=== PATIENT | female | born 1960 | race Caucasian/White ===

== ENCOUNTER → 2018-06-24 12:01 | Outpatient (CLI) | payer MEDICARE, MEDICAID, SELFPAY ==
--- NOTE | 2018-06-24 12:07 | XR_ITS ---
XR shoulder RT min 2V HISTORY: ITS.REASON: Rt shoulder pain ORDERING PHYSICIAN: Lolis Tavarez MD PATIENT AGE: 57 years FINDINGS: No fracture or dislocation. No lytic or blastic change. There is normal mineralization. The joint spaces are well-preserved. No significant degenerative/arthritic changes. No erosive changes evident. There is mild inferior subluxation of the humeral head on the [place] view. Mild hypertrophic changes involving greater tuberosity IMPRESSION: There is mild inferior subluxation of the humeral head on the [place] view. Mild hypertrophic changes involving greater tuberosity otherwise negative right shoulder
== END ==
PROVIDERS: PCP Emergency Medicine; Visit Provider Orthopaedic Surgery
DX: M25.511 Pain in right shoulder (principal)
CPT/HCPCS: 73030

== ENCOUNTER 2018-07-12 10:00 | Outpatient (RCR) | payer MEDICARE, MEDICAID, SELFPAY | END 2018-07-12 10:05 | disposition home or self-care (01) | LOC: OT 10:00 | PROVIDERS: Visit Provider Orthopaedic Surgery | DX: M25.511 Pain in right shoulder (principal) | CPT/HCPCS: 97014; 97110; 97165; G0283 ==

== ENCOUNTER → 2018-10-14 12:17 | Outpatient (CLI) | payer MEDICARE, MEDICAID, SELFPAY ==
[2018-10-14 13:42] LABS: Anion Gap 14.4 mEq/L (5-15); Blood Urea Nitrogen 21 mg/dL (7-18); Calcium 8.4 mg/dL (8.5-10.1); Carbon Dioxide 29 mmol/L (21.0-32.0); Chloride 101 mmol/L (98-107); Creatinine,Serum 1.12 mg/dL (0.55-1.02); Estimated Glomerular Filt Rate 51 ml/min (>60); GFR (African American) 61 ML/MIN (>60); Glucose 155 mg/dL (74-106); Potassium 4.4 mmoL/L (3.5-5.1); Sodium 140 mmol/L (136-145)
== END ==
PROVIDERS: Visit Provider Internal Medicine Cardiovascular Disease
DX: I10 Essential (primary) hypertension (principal); R00.0 Tachycardia, unspecified; R06.02 Shortness of breath
CPT/HCPCS: 36415; 80048; 83880

== ENCOUNTER 2018-11-11 14:35 | Emergency (ER) | payer MEDICARE, MEDICAID, SELFPAY ==
[2018-11-11 14:35] VITALS: BP 129/83; PULSE 109; O2SAT 95
[2018-11-11 14:38] VITALS: BP 150/101; PULSE 101; RESP 22; TEMP 36.7; O2SAT 96; BMI 37.4
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
[2018-11-11 15:05] VITALS: BP 151/89; PULSE 119; O2SAT 95
[2018-11-11 15:20] VITALS: BP 147/75; PULSE 81; RESP 18; TEMP 36.7; O2SAT 99
== END 2018-11-11 15:26 | disposition home or self-care (01) ==
PROVIDERS: Emergency Provider Emergency Medicine; PCP Emergency Medicine
DX: T20.20XA Burn of second degree of head, face, and neck, unspecified site, initial encounter (principal); X08.8XXA Exposure to other specified smoke, fire and flames, initial encounter; Y92.199 Unspecified place in other specified residential institution as the place of occurrence of the external cause; J44.9 Chronic obstructive pulmonary disease, unspecified; K21.9 Gastro-esophageal reflux disease without esophagitis; E78.5 Hyperlipidemia, unspecified; F41.9 Anxiety disorder, unspecified; F17.210 Nicotine dependence, cigarettes, uncomplicated; Z88.0 Allergy status to penicillin; Z88.5 Allergy status to narcotic agent; Z88.8 Allergy status to other drugs, medicaments and biological substances
CPT/HCPCS: 90471; 99282

== ENCOUNTER 2019-02-08 22:06 | Observation (INO) ==
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
[2019-02-08 23:13] LABS: Basophils # 0.1 K/mm3 (0-0.2); Basophils % 0.5 % (0.1-2.0); Eosinophils # 0.2 K/mm3 (0.0-0.4); Eosinophils % 1.3 % (0.1-12.0); Hematocrit 40.2 % (37.0-47.0); Hemoglobin 12.4 g/dL (12.2-16.2); Lymphocytes # 2.1 K/mm3 (0.7-4.5); Lymphocytes % 12.3 % (10-50); Mean Corpuscular HGB Conc 30.9 g/dL (31.8-35.4); Mean Corpuscular Volume 92.7 fl (81-99); Mean Platelet Volume 10.6 fl (7.4-10.4); Monocytes # 1.2 K/mm3 (0.1-1.0); Monocytes % 6.8 % (1.7-9.3); Neutrophils # 13.3 K/mm3 (1.8-7.8); Neutrophils % 79.2 % (37.0-80.0); Platelet Count 211 K/mm3 (142-424); Red Blood Count 4.33 M/mm3 (4.20-5.40); Red Cell Distribution Width 14.2 % (11.5-17.5); White Blood Count 16.8 K/mm3 (4.8-10.8)
[2019-02-08 23:34] LABS: Anion Gap 17.4 mEq/L (5-15); Calcium 8.9 mg/dL (8.5-10.1)
[2019-02-08 23:35] LABS: Albumin Level 3.5 gm/dL (3.4-5.0); Bilirubin,Direct 0.2 mg/dL (0.0-0.2); Bilirubin,Indirect 0.4 mg/dL (0.0-0.9); Bilirubin,Total 0.6 mg/dL (0.2-1.0); Total Protein,Serum 7.3 gm/dL (6.4-8.2)
[2019-02-08 23:59] LABS: Anisocytosis 1+; Eosinophils % 1 % (0-3); Lymphocytes % 10 % (10-50); Monocytes % 2 % (2-9); Neutrophils % 87 % (42-76); Total Cells Counted 100
[2019-02-09 05:06] LABS: Microscopic, Urine URINE MICROSCOPIC (MICROSCOPIC)
[2019-02-09 05:10] LABS: Appearance,Urine CLEAR (Clear); Bilirubin,Urine Negative (Negative); Blood, Urine 2+ (Negative); Color,Urine YELLOW (Yellow); Glucose,Urine (UA) 3+ (Negative); Ketones,Urine Negative (Negative); Leukocyte Esterase,Urine Negative (Negative); Protein,Urine Negative (Negative); Urobilinogen,Urine 0.2 EU/dl (0.2)
[2019-02-09 05:38] LABS: Bacteria,Urine 1+ /lpf; Mucus,Urine 1+ /lpf
[2019-02-09 05:42] LABS: Basophils # 0.1 K/mm3 (0-0.2); Basophils % 0.5 % (0.1-2.0); Eosinophils # 0.4 K/mm3 (0.0-0.4); Eosinophils % 2.5 % (0.1-12.0); Hematocrit 38.2 % (37.0-47.0); Lymphocytes # 2.5 K/mm3 (0.7-4.5); Lymphocytes % 18.2 % (10-50); Mean Corpuscular HGB Conc 31.4 g/dL (31.8-35.4); Mean Corpuscular Volume 89.1 fl (81-99); Mean Platelet Volume 10.3 fl (7.4-10.4); Monocytes % 7.6 % (1.7-9.3); Neutrophils # 9.7 K/mm3 (1.8-7.8); Neutrophils % 71.2 % (37.0-80.0); Platelet Count 196 K/mm3 (142-424); Red Blood Count 4.29 M/mm3 (4.20-5.40); Red Cell Distribution Width 14.3 % (11.5-17.5); White Blood Count 13.6 K/mm3 (4.8-10.8)
[2019-02-09 05:59] LABS: Anion Gap 15.4 mEq/L (5-15); Calcium 8.7 mg/dL (8.5-10.1)
--- NOTE | 2019-02-09 08:56 | History & Physical Report ---
*Admission Date: 02/08/19 *Chief complaint: abcess *History of present illness: 58-year-old female presented to the ER with complaints of 2 abscess areas on the right inner thigh. Patient states he just showed up yesterday. Patient admitted for abscesses for surgery consult and newly diagnosed diabetes. [facility] History I have reviewed the patient's past medical history: Yes Medical History: Reports:: Anxiety, Chronic Obstructive Pulmonary Disease (COPD), Diabetes Mellitus Type 2, Gastroesophageal Reflux Disease(GERD), Hyperlipidemia, Hypertension, Seizures Denies:: Cancer, Diabetes Mellitus Type 1, MRSA *Have you ever received a pneumonia vaccine?: Yes *Have you received a flu vaccine this season?: No Other Medical History: Reports: Anemia Other Surgeries: Yes: Cholecystectomy, Tubal Ligation Amputation: No - *Social History Educational Level: Attended High School Smoking Status: Current every day smoker Tobacco Type: cigarettes # Packs/Day (cigarettes): 1 Alcohol Intake: never Substance Use Type: denies use *Occupational Status:: disabled Housing: other *Travel in the last 8 weeks: None - Psychiatric History Pschychiatric History:: Reports:: Anxiety Family Hx:: Coronary Artery Disease Review of Systems - Review of Systems Review of systems:: pertinent systems reviewed and negative unless documented below - Constitutional Denies body ache(s), Denies headache(s) - Eyes Denies change in vision - ENT Denies change in voice, Denies headache(s) - *Cardiovascular Denies chest pain with activity - *Respiratory Denies cough - *Gastrointestinal Denies change in bowel habits - *Genitourinary Denies urinary urgency - *Musculoskeletal Denies decreased muscle mass - Integumentary/Breasts Reports wounds Comments: two abscess rt inter thigh - *Neurologic Denies seizure-like activity - Psychiatric Denies anxiety - Endocrine Denies excessive sweating - Hematologic/Lymphatic Denies enlarged lymph nodes - Allergic/Immunologic Denies lip swelling Meds Home Medications Medication Instructions Recorded Confirmed Type atorvastatin 80 mg tablet 80 mg PO ONCE 09/08/17 02/09/19 History benztropine 1 mg tablet 1 mg PO BID 09/08/17 02/09/19 History buspirone 30 mg tablet 30 mg PO BID tab 09/08/17 02/09/19 History escitalopram 20 mg tablet 20 mg PO ONCE 09/08/17 02/09/19 History haloperidol 10 mg tablet 10 mg PO TID 09/08/17 02/09/19 History ibuprofen 600 mg tablet 600 mg PO TID 09/08/17 02/09/19 History loperamide 2 mg capsule 2 mg PO Q4H 09/08/17 02/09/19 History olanzapine 20 mg tablet 20 mg PO ONCE 09/08/17 02/09/19 History pantoprazole 20 mg tablet,delayed 40 mg PO QHS 09/08/17 02/09/19 History release perphenazine 8 mg tablet 8 mg PO BID 09/08/17 02/09/19 History phenytoin sodium extended 100 mg 100 mg PO TID 09/08/17 02/09/19 History capsule potassium chloride ER 20 mEq 20 meq PO BID 09/08/17 02/09/19 History tablet,extended release(part/cryst) promethazine 25 mg tablet 25 mg PO Q6H PRN 09/08/17 02/09/19 History triamterene 75 1 tab PO BID tab 09/08/17 02/09/19 History mg-hydrochlorothiazide 50 mg tablet Loratadine [Claritin] 10 mg PO DAILY 02/08/19 02/08/19 History Oxybutynin Chloride [Oxybutynin 5 mg PO DAILY 02/08/19 02/08/19 History Chloride ER] lamoTRIgine [Lamictal Odt] 50 mg PO BID 02/08/19 02/08/19 History levETIRAcetam [Levetiracetam] 500 mg PO BID 02/08/19 02/08/19 History Allergies Allergy/AdvReac Type Severity Reaction Status Date / Time aripiprazole [From ABILIFY] Allergy Mild Verified 11/11/18 14:45 Penicillins [PENICILLINS] Allergy Mild Verified 11/11/18 14:45 codeine [CODEINE] Allergy Unknown Verified 11/11/18 14:45 paroxetine [PAROXETINE] Allergy Unknown Verified 11/11/18 14:45 PPD black rubber mix Allergy Unknown Verified 11/11/18 14:45 [PPD BLACK RUBBER MIX] tuberculin, purified protein Allergy Unknown Verified 11/11/18 14:45 deriva [From TUBERSOL] venom-honey bee Allergy Unknown Verified 11/11/18 14:45 venom-wasp Allergy Unknown Verified 11/11/18 14:45 Bumble Bee Allergy Unknown Uncoded 10/14/18 11:06 Exam Vital signs and Labs for Last 24 Hours: Temp Pulse Resp BP Pulse Ox 97.7 F 76 21 131/78 100 02/09/19 08:00 02/09/19 08:00 02/09/19 08:00 02/09/19 08:00 02/09/19 08:00 Laboratory Results - last 24 hr 02/08/19 22:50: WBC 16.8 H, RBC 4.33, Hgb 12.4, Hct 40.2, MCV 92.7, MCH 28.7, MCHC 30.9 L, RDW 14.2, Plt Count 211, MPV 10.6 H, Neut % (Auto) 79.2, Lymph % (Auto) 12.3, [place] % (Auto) 6.8, Eos % (Auto) 1.3, Baso % (Auto) 0.5, Neut # (Au to) 13.3 H, Lymph # (Auto) 2.1, [place] # (Auto) 1.2 H, Eos # (Auto) 0.2, Baso # (Auto) 0.1, Total Counted 100, Neutrophils % (Manual) 87 H, Lymphocytes % (Manual) 10, Monocytes % (Manual) 2, Eosinophils % (Manual) 1, Platelet Estimate Normal, Anisocytosis 1+ 02/08/19 22:50: Sodium 126 L, Potassium 4.4, Chloride 88 L, Carbon Dioxide 25, Anion Gap 17.4 H, BUN 28 H, Creatinine 1.74 H, Estimated Creat Clear 55, Estimated GFR 30 L, Est GFR ( Amer) 37 L, Glucose 791 H*, Calcium 8.9 02/08/19 22:50: Lactate 3.0 H 02/08/19 22:50: Total Bilirubin 0.6, Direct Bilirubin 0.2, Indirect Bilirubin 0.4, AST 26, ALT 43, Alkaline Phosphatase 169 H, Total Protein 7.3, Albumin 3.5 02/09/19 00:00: Acetone Level None detected 02/09/19 00:00: Phenytoin 0.6 L 02/09/19 02:30: Lactate 2.5 H 02/09/19 04:52: Urine Color Yellow, Urine Appearance Clear, Urine pH 6.0, Ur Specific [place] 1.010, Urine Protein Negative, Urine Glucose (UA) 3+, Urine Ketones Negative, Urine Blood 2+, Urine Nitrate Positive, Urine Bilirubin Negative, Urine Urobilinogen 0.2, Ur Leukocyte Esterase Negative, Urine RBC 5- 10, Urine WBC 3-5, Ur Squamous Epith Cells 3-5, Urine Bacteria 1+, Urine Mucus 1+ 02/09/19 05:25: WBC 13.6 H, RBC 4.29, Hgb 12.0 L, Hct 38.2, MCV 89.1, MCH 28.0, MCHC 31.4 L, RDW 14.3, Plt Count 196, MPV 10.3, Neut % (Auto) 71.2, Lymph % (Auto) 18.2, [place] % (Auto) 7.6, Eos % (Auto) 2.5, Baso % (Auto) 0.5, Neut # (Auto) 9.7 H, Lymph # (Auto) 2.5, [place] # (Auto) 1.0, Eos # (Auto) 0.4, Baso # (Auto) 0.1 02/09/19 05:25: Sodium 134 L, Potassium 3.4 L D, Chloride 95 L, Carbon Dioxide 27, Anion Gap 15.4 H, BUN 23 H, Creatinine 1.36 H D, Estimated Creat Clear 72, Estimated GFR 40 L, Est GFR ( Amer) 49 L D, Glucose 533 H* D, Calcium 8.7 02/09/19 05:25: Lactate 1.5 02/09/19 05:40: POC Glucose 514 H* I & O for Last 24 hours: Intake & Output 02/06/19 02/07/19 02/08/19 02/09/19 11:59 11:59 11:59 11:59 Intake Total 717 / 717 Output Total 1350 / 1350 Balance -633 / -633 Weight 218 lb 1 oz Microbiology Reports for the Last 24 Hours: Microbiology 02/09/19 01:00 Groin Gram Stain - Final - Constitutional no acute distress - *Routine HEENT Exam Head: Present: normocephalic Eye: Present: PERRL ENT: Present: mucous membranes moist - *Routine Neck Exam Present: supple. Absent: lymphadenopathy - *Routine Respiratory Exam Present: CTA bilaterally - *Routine Cardiovascular Exam Present: RRR - *Routine Abdominal Exam Present: soft, normoactive bowel sounds. Absent: tenderness - *Routine Extremities Exam Present: full ROM. Absent: cyanosis, clubbing, edema - *Routine Skin Exam Present: warm, wounds. Absent: rash Comments: two areas one golf ball size induration area with redness- dressing in place one pimple like area - *Routine Neurological Exam Present: alert, oriented X3 - Routine Psychiatric Exam Present: unable to assess Assessment and Plan (1) Abscess of skin or subcutaneous tissue Current visit: Yes Status: Acute Qualifiers: Site of cutaneous abscess: extremity Site of cutaneous abscess of extremity: lower extremity Laterality: right Qualified Code(s): L02.415 - Cutaneous abscess of right lower limb Category: Medical Code(s): L02.91 - Cutaneous abscess, unspecified (2) Diabetes mellitus Current visit: Yes Status: Acute Qualifiers: Diabetes mellitus type: type 2 Diabetes mellitus prison insulin use: unspecified prison insulin use status Diabetes mellitus complication status: with other specified complication Qualified Code(s): E11.69 - Type 2 diabetes mellitus with other specified complication Category: Medical Code(s): E11.9 - Type 2 diabetes mellitus without complications (3) Schizophrenia Current visit: Yes Status: Acute Qualifiers: Schizophrenia type: unspecified Qualified Code(s): F20.9 - Schizophrenia, unspecified Category: Medical Code(s): F20.9 - Schizophrenia, unspecified (4) HTN (hypertension) Current visit: No Status: Acute Qualifiers: Hypertension type: essential hypertension Qualified Code(s): I10 - Essential (primary) hypertension Category: Medical Code(s): I10 - Essential (primary) hypertension - Assessment and plan all Dx Assessment and Plan for all problems:: Rounded with Dr. Douglass all orders per Evonne consult surgery
--- NOTE | 2019-02-09 09:26 | Pharmacy Consult Notes ---
- Pharmacy Consult Date: 02/09/19 Time: 09:25 Referring provider: DR. SNIDER Reason for Consult:: VANCOMYCIN DOSING Allergies and ADEs:: Allergies Allergy/AdvReac Type Severity Reaction Status Date / Time aripiprazole [From ABILIFY] Allergy Mild Verified 11/11/18 14:45 Penicillins [PENICILLINS] Allergy Mild Verified 11/11/18 14:45 codeine [CODEINE] Allergy Unknown Verified 11/11/18 14:45 paroxetine [PAROXETINE] Allergy Unknown Verified 11/11/18 14:45 PPD black rubber mix Allergy Unknown Verified 11/11/18 14:45 [PPD BLACK RUBBER MIX] tuberculin, purified protein Allergy Unknown Verified 11/11/18 14:45 deriva [From TUBERSOL] venom-honey bee Allergy Unknown Verified 11/11/18 14:45 venom-wasp Allergy Unknown Verified 11/11/18 14:45 Bumble Bee Allergy Unknown Uncoded 10/14/18 11:06 Home Medications:: Home Medications Medication Instructions Recorded Confirmed Type atorvastatin 80 mg tablet 80 mg PO ONCE 09/08/17 02/09/19 History benztropine 1 mg tablet 1 mg PO BID 09/08/17 02/09/19 History buspirone 30 mg tablet 30 mg PO BID tab 09/08/17 02/09/19 History escitalopram 20 mg tablet 20 mg PO ONCE 09/08/17 02/09/19 History haloperidol 10 mg tablet 10 mg PO TID 09/08/17 02/09/19 History ibuprofen 600 mg tablet 600 mg PO TID 09/08/17 02/09/19 History loperamide 2 mg capsule 2 mg PO Q4H 09/08/17 02/09/19 History olanzapine 20 mg tablet 20 mg PO ONCE 09/08/17 02/09/19 History pantoprazole 20 mg tablet,delayed 40 mg PO QHS 09/08/17 02/09/19 History release perphenazine 8 mg tablet 8 mg PO BID 09/08/17 02/09/19 History phenytoin sodium extended 100 mg 100 mg PO TID 09/08/17 02/09/19 History capsule potassium chloride ER 20 mEq 20 meq PO BID 09/08/17 02/09/19 History tablet,extended release(part/cryst) promethazine 25 mg tablet 25 mg PO Q6H PRN 09/08/17 02/09/19 History triamterene 75 1 tab PO BID tab 09/08/17 02/09/19 History mg-hydrochlorothiazide 50 mg tablet Loratadine [Claritin] 10 mg PO DAILY 02/08/19 02/08/19 History Oxybutynin Chloride [Oxybutynin 5 mg PO DAILY 02/08/19 02/08/19 History Chloride ER] lamoTRIgine [Lamictal Odt] 50 mg PO BID 02/08/19 02/08/19 History levETIRAcetam [Levetiracetam] 500 mg PO BID 02/08/19 02/08/19 History Height: 1.65 m Weight: 98.911 kg Laboratory Results:: Laboratory Results - last 24 hr 02/08/19 22:50: WBC 16.8 H, RBC 4.33, Hgb 12.4, Hct 40.2, MCV 92.7, MCH 28.7, MCHC 30.9 L, RDW 14.2, Plt Count 211, MPV 10.6 H, Neut % (Auto) 79.2, Lymph % (Auto) 12.3, [place] % (Auto) 6.8, Eos % (Auto) 1.3, Baso % (Auto) 0.5, Neut # (Auto) 13.3 H, Lymph # (Auto) 2.1, [place] # (Auto) 1.2 H, Eos # (Auto) 0.2, Baso # (Auto) 0.1, Total Counted 100, Neutrophils % (Manual) 87 H, Lymphocytes % (Manual) 10, Monocytes % (Manual) 2, Eosinophils % (Manual) 1, Platelet Estimate Normal, Anisocytosis 1+ 02/08/19 22:50: Sodium 126 L, Potassium 4.4, Chloride 88 L, Carbon Dioxide 25, Anion Gap 17.4 H, BUN 28 H, Creatinine 1.74 H, Estimated Creat Clear 55, Estimated GFR 30 L, Est GFR ( Amer) 37 L, Glucose 791 H*, Calcium 8.9 02/08/19 22:50: Lactate 3.0 H 02/08/19 22:50: Total Bilirubin 0.6, Direct Bilirubin 0.2, Indirect Bilirubin 0.4, AST 26, ALT 43, Alkaline Phosphatase 169 H, Total Protein 7.3, Albumin 3.5 02/09/19 00:00: Acetone Level None detected 02/09/19 00:00: Phenytoin 0.6 L 02/09/19 02:30: Lactate 2.5 H 02/09/19 04:52: Urine Color Yellow, Urine Appearance Clear, Urine pH 6.0, Ur Specific [place] 1.010, Urine Protein Negative, Urine Glucose (UA) 3+, Urine Ketones Negative, Urine Blood 2+, Urine Nitrate Positive, Urine Bilirubin Negative, Urine Urobilinogen 0.2, Ur Leukocyte Esterase Negative, Urine RBC 5- 10, Urine WBC 3-5, Ur Squamous Epith Cells 3-5, Urine Bacteria 1+, Urine Mucus 1+ 02/09/19 05:25: WBC 13.6 H, RBC 4.29, Hgb 12.0 L, Hct 38.2, MCV 89.1, MCH 28.0, MCHC 31.4 L, RDW 14.3, Plt Count 196, MPV 10.3, Neut % (Auto) 71.2, Lymph % (Auto) 18.2, [place] % (Auto) 7.6, Eos % (Auto) 2.5, Baso % (Auto) 0.5, Neut # (Auto) 9.7 H, Lymph # (Auto) 2.5, [place] # (Auto) 1.0, Eos # (Auto) 0.4, Baso # (Auto) 0.1 02/09/19 05:25: Sodium 134 L, Potassium 3.4 L D, Chloride 95 L, Carbon Dioxide 27, Anion Gap 15.4 H, BUN 23 H, Creatinine 1.36 H D, Estimated Creat Clear 72, Estimated GFR 40 L, Est GFR ( Amer) 49 L D, Glucose 533 H* D, Calcium 8.7 02/09/19 05:25: Lactate 1.5 02/09/19 05:40: POC Glucose 514 H* Medical History: Reports:: Anxiety, Chronic Obstructive Pulmonary Disease (COPD), Diabetes Mellitus Type 2, Gastroesophageal Reflux Disease(GERD), Hyperlipidemia, Hypertension, Seizures Denies:: Cancer, Diabetes Mellitus Type 1, MRSA Assessment and Plan (1) Abscess of skin or subcutaneous tissue Current visit: Yes Status: Acute Qualifiers: Site of cutaneous abscess: extremity Site of cutaneous abscess of extremity: lower extremity Laterality: right Qualified Code(s): L02.415 - Cutaneous abscess of right lower limb Category: Medical Code(s): L02.91 - Cutaneous abscess, unspecified (2) Diabetes mellitus Current visit: Yes Status: Acute Qualifiers: Diabetes mellitus type: type 2 Diabetes mellitus keno terminal operator insulin use: unspecified chcf insulin use status Diabetes mellitus complication status: with other specified complication Qualified Code(s): E11.69 - Type 2 diabetes mellitus with other specified complication Category: Medical Code(s): E11.9 - Type 2 diabetes mellitus without complications (3) Schizophrenia Current visit: Yes Status: Acute Qualifiers: Schizophrenia type: unspecified Qualified Code(s): F20.9 - Schizophrenia, unspecified Category: Medical Code(s): F20.9 - Schizophrenia, unspecified (4) HTN (hypertension) Current visit: No Status: Acute Qualifiers: Hypertension type: essential hypertension Qualified Code(s): I10 - Essential (primary) hypertension Category: Medical Code(s): I10 - Essential (primary) hypertension - Assessment and plan all Dx Assessment and Plan for all problems:: BASED ON PATIENT FACTORS, RECOMMEND VANCOMYCIN 2 GM IV ONCE, FOLLOWED BY VANCOMYCIN 1750 MG IV Q24H. PHARMACY WILL FOLLOW DAILY AND ADJUST APPROPRIATE.
--- NOTE | 2019-02-09 10:22 | Consult Report ---
*Admission Date: 02/08/19 *Reason for consult:: Right medial thigh abscess *History of present illness: This is a 58-year-old female seen in consultation from the service of Dr. Douglass for evaluation and management of her right medial thigh abscess. She presented with increasing swelling/tenderness along the right medial thigh. An obvious abscess with focal cellulitic change was noted. Focal/limited incision and drainage was completed in the emergency department. She was placed on antibiotics and admitted for further management. Review of Systems - Constitutional Denies chills - *Cardiovascular Denies chest pain - *Respiratory Denies cough - *Gastrointestinal Denies abdominal pain - *Neurologic Denies headache(s), Denies seizure-like activity [facility] History Medical History: Reports:: Anxiety, Chronic Obstructive Pulmonary Disease (COPD), Diabetes Mellitus Type 2, Gastroesophageal Reflux Disease(GERD), Hyperlipidemia, Hypertension, Seizures Denies:: Cancer, Diabetes Mellitus Type 1, MRSA *Have you ever received a pneumonia vaccine?: Yes *Have you received a flu vaccine this season?: No Other Medical History: Reports: Anemia Other Surgeries: Yes: Cholecystectomy, Tubal Ligation Amputation: No - *Social History Educational Level: Attended High School Smoking Status: Current every day smoker Tobacco Type: cigarettes # Packs/Day (cigarettes): 1 Alcohol Intake: never Substance Use Type: denies use *Occupational Status:: disabled Housing: other *Travel in the last 8 weeks: None - Psychiatric History Pschychiatric History:: Reports:: Anxiety Family Hx:: Coronary Artery Disease Meds Home Medications Medication Instructions Recorded Confirmed Type atorvastatin 80 mg tablet 80 mg PO ONCE 09/08/17 02/09/19 History benztropine 1 mg tablet 1 mg PO BID 09/08/17 02/09/19 History buspirone 30 mg tablet 30 mg PO BID tab 09/08/17 02/09/19 History escitalopram 20 mg tablet 20 mg PO ONCE 09/08/17 02/09/19 History haloperidol 10 mg tablet 10 mg PO TID 09/08/17 02/09/19 History ibuprofen 600 mg tablet 600 mg PO TID 09/08/17 02/09/19 History loperamide 2 mg capsule 2 mg PO Q4H 09/08/17 02/09/19 History olanzapine 20 mg tablet 20 mg PO ONCE 09/08/17 02/09/19 History pantoprazole 20 mg tablet,delayed 40 mg PO QHS 09/08/17 02/09/19 History release perphenazine 8 mg tablet 8 mg PO BID 09/08/17 02/09/19 History phenytoin sodium extended 100 mg 100 mg PO TID 09/08/17 02/09/19 History capsule potassium chloride ER 20 mEq 20 meq PO BID 09/08/17 02/09/19 History tablet,extended release(part/cryst) promethazine 25 mg tablet 25 mg PO Q6H PRN 09/08/17 02/09/19 History triamterene 75 1 tab PO BID tab 09/08/17 02/09/19 History mg-hydrochlorothiazide 50 mg tablet Loratadine [Claritin] 10 mg PO DAILY 02/08/19 02/08/19 History Oxybutynin Chloride [Oxybutynin 5 mg PO DAILY 02/08/19 02/08/19 History Chloride ER] lamoTRIgine [Lamictal Odt] 50 mg PO BID 02/08/19 02/08/19 History levETIRAcetam [Levetiracetam] 500 mg PO BID 02/08/19 02/08/19 History Allergies Allergy/AdvReac Type Severity Reaction Status Date / Time aripiprazole [From ABILIFY] Allergy Mild Verified 11/11/18 14:45 Penicillins [PENICILLINS] Allergy Mild Verified 11/11/18 14:45 codeine [CODEINE] Allergy Unknown Verified 11/11/18 14:45 paroxetine [PAROXETINE] Allergy Unknown Verified 11/11/18 14:45 PPD black rubber mix Allergy Unknown Verified 11/11/18 14:45 [PPD BLACK RUBBER MIX] tuberculin, purified protein Allergy Unknown Verified 11/11/18 14:45 deriva [From TUBERSOL] venom-honey bee Allergy Unknown Verified 11/11/18 14:45 venom-wasp Allergy Unknown Verified 11/11/18 14:45 Bumble Bee Allergy Unknown Uncoded 10/14/18 11:06 Exam Vital signs and Labs for Last 24 Hours: Temp Pulse Resp BP Pulse Ox 97.7 F 76 21 131/78 100 02/09/19 08:00 02/09/19 08:00 02/09/19 08:00 02/09/19 08:00 02/09/19 08:00 Laboratory Results - last 24 hr 02/08/19 22:50: WBC 16.8 H, RBC 4.33, Hgb 12.4, Hct 40.2, MCV 92.7, MCH 28.7, MCHC 30.9 L, RDW 14.2, Plt Count 211, MPV 10.6 H, Neut % (Auto) 79.2, Lymph % (Auto) 12.3, [place] % (Auto) 6.8, Eos % (Auto) 1.3, Baso % (Auto) 0.5, Neut # (Auto) 13.3 H, Lymph # (Auto) 2.1, [place] # (Auto) 1.2 H, Eos # (Auto) 0.2, Baso # (Auto) 0.1, Total Counted 100, Neutrophils % (Manual) 87 H, Lymphocytes % (Manual) 10, Monocytes % (Manual) 2, Eosinophils % (Manual) 1, Platelet Estimate Normal, Anisocytosis 1+ 02/08/19 22:50: Sodium 126 L, Potassium 4.4, Chloride 88 L, Carbon Dioxide 25, Anion Gap 17.4 H, BUN 28 H, Creatinine 1.74 H, Estimated Creat Clear 55, Estimated GFR 30 L, Est GFR ( Amer) 37 L, Glucose 791 H*, Calcium 8.9 02/08/19 22:50: Lactate 3.0 H 02/08/19 22:50: Total Bilirubin 0.6, Direct Bilirubin 0.2, Indirect Bilirubin 0.4, AST 26, ALT 43, Alkaline Phosphatase 169 H, Total Protein 7.3, Albumin 3.5 02/09/19 00:00: Acetone Level None detected 02/09/19 00:00: Phenytoin 0.6 L 02/09/19 02:30: Lactate 2.5 H 02/09/19 04:52: Urine Color Yellow, Urine Appearance Clear, Urine pH 6.0, Ur Specific [place] 1.010, Urine Protein Negative, Urine Glucose (UA) 3+, Urine Ketones Negative, Urine Blood 2+, Urine Nitrate Positive, Urine Bilirubin Negative, Urine Urobilinogen 0.2, Ur Leukocyte Esterase Negative, Urine RBC 5- 10, Urine WBC 3-5, Ur Squamous Epith Cells 3-5, Urine Bacteria 1+, Urine Mucus 1+ 02/09/19 05:25: WBC 13.6 H, RBC 4.29, Hgb 12.0 L, Hct 38.2, MCV 89.1, MCH 28.0, MCHC 31.4 L, RDW 14.3, Plt Count 196, MPV 10.3, Neut % (Auto) 71.2, Lymph % (Auto) 18.2, [place] % (Auto) 7.6, Eos % (Auto) 2.5, Baso % (Auto) 0.5, Neut # (Auto) 9.7 H, Lymph # (Auto) 2.5, [place] # (Auto) 1.0, Eos # (Auto) 0.4, Baso # (Auto) 0.1 02/09/19 05:25: Sodium 134 L, Potassium 3.4 L D, Chloride 95 L, Carbon Dioxide 27, Anion Gap 15.4 H, BUN 23 H, Creatinine 1.36 H D, Estimated Creat Clear 72, Estimated GFR 40 L, Est GFR ( Amer) 49 L D, Glucose 533 H* D, Calcium 8.7 02/09/19 05:25: Lactate 1.5 02/09/19 05:40: POC Glucose 514 H* I & O for Last 24 hours: Intake & Output 02/06/19 02/07/19 02/08/19 02/09/19 11:59 11:59 11:59 11:59 Intake Total 717 / 717 Output Total 1350 / 1350 Balance -633 / -633 Weight 218 lb 1 oz Microbiology Reports for the Last 24 Hours: Microbiology 02/09/19 01:00 Groin Gram Stain - Final - Constitutional no acute distress - *Routine Skin Exam Comments: Right medial thigh abscess (x2) with overlying cellulitic change Results - Labs 02/09/19 05:25 02/09/19 05:25 Laboratory Results - last 24 hr 02/08/19 22:50: WBC 16.8 H, RBC 4.33, Hgb 12.4, Hct 40.2, MCV 92.7, MCH 28.7, MCHC 30.9 L, RDW 14.2, Plt Count 211, MPV 10.6 H, Neut % (Auto) 79.2, Lymph % (Auto) 12.3, [place] % (Auto) 6.8, Eos % (Auto) 1.3, Baso % (Auto) 0.5, Neut # (Auto) 13.3 H, Lymph # (Auto) 2.1, [place] # (Auto) 1.2 H, Eos # (Auto) 0.2, Baso # (Auto) 0.1, Total Counted 100, Neutrophils % (Manual) 87 H, Lymphocytes % (Manual) 10, Monocytes % (Manual) 2, Eosinophils % (Manual) 1, Platelet Estimate Normal, Anisocytosis 1+ 02/08/19 22:50: Sodium 126 L, Potassium 4.4, Chloride 88 L, Carbon Dioxide 25, Anion Gap 17.4 H, BUN 28 H, Creatinine 1.74 H, Estimated Creat Clear 55, Estimated GFR 30 L, Est GFR ( Amer) 37 L, Glucose 791 H*, Calcium 8.9 02/08/19 22:50: Lactate 3.0 H 02/08/19 22:50: Total Bilirubin 0.6, Direct Bilirubin 0.2, Indirect Bilirubin 0.4, AST 26, ALT 43, Alkaline Phosphatase 169 H, Total Protein 7.3, Albumin 3.5 02/09/19 00:00: Acetone Level None detected 02/09/19 00:00: Phenytoin 0.6 L 02/09/19 02:30: Lactate 2.5 H 02/09/19 04:52: Urine Color Yellow, Urine Appearance Clear, Urine pH 6.0, Ur Specific [place] 1.010, Urine Protein Negative, Urine Glucose (UA) 3+, Urine Ketones Negative, Urine Blood 2+, Urine Nitrate Positive, Urine Bilirubin Negative, Urine Urobilinogen 0.2, Ur Leukocyte Esterase Negative, Urine RBC 5- 10, Urine WBC 3-5, Ur Squamous Epith Cells 3-5, Urine Bacteria 1+, Urine Mucus 1+ 02/09/19 05:25: WBC 13.6 H, RBC 4.29, Hgb 12.0 L, Hct 38.2, MCV 89.1, MCH 28.0, MCHC 31.4 L, RDW 14.3, Plt Count 196, MPV 10.3, Neut % (Auto) 71.2, Lymph % (Auto) 18.2, [place] % (Auto) 7.6, Eos % (Auto) 2.5, Baso % (Auto) 0.5, Neut # (Auto) 9.7 H, Lymph # (Auto) 2.5, [place] # (Auto) 1.0, Eos # (Auto) 0.4, Baso # (Auto) 0.1 02/09/19 05:25: Sodium 134 L, Potassium 3.4 L D, Chloride 95 L, Carbon Dioxide 27, Anion Gap 15.4 H, BUN 23 H, Creatinine 1.36 H D, Estimated Creat Clear 72, Estimated GFR 40 L, Est GFR ( Amer) 49 L D, Glucose 533 H* D, Calcium 8.7 02/09/19 05:25: Lactate 1.5 02/09/19 05:40: POC Glucose 514 H* Assessment and Plan (1) Abscess of skin or subcutaneous tissue Current visit: Yes Status: Acute Qualifiers: Site of cutaneous abscess: extremity Site of cutaneous abscess of extremity: lower extremity Laterality: right Qualified Code(s): L02.415 - Cutaneous abscess of right lower limb Category: Medical Code(s): L02.91 - Cutaneous abscess, unspecified Incision and drainage of right medial thigh abscesses (x2) to be completed at the bedside (2) Diabetes mellitus Current visit: Yes Status: Acute Qualifiers: Diabetes mellitus type: type 2 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 care home insulin use status Diabetes mellitus complication status: with other specified complication Qualified Code(s): E11.69 - Type 2 diabetes mellitus with other specified complication Category: Medical Code(s): E11.9 - Type 2 diabetes mellitus without complications (3) Schizophrenia Current visit: Yes Status: Acute Qualifiers: Schizophrenia type: unspecified Qualified Code(s): F20.9 - Schizophrenia, unspecified Category: Medical Code(s): F20.9 - Schizophrenia, unspecified (4) HTN (hypertension) Current visit: No Status: Acute Qualifiers: Hypertension type: essential hypertension Qualified Code(s): I10 - Essential (primary) hypertension Category: Medical Code(s): I10 - Essential (primary) hypertension
--- NOTE | 2019-02-09 10:31 | Operative Note ---
Date of procedure: 02/09/19 Pre-op Diagnosis:: Right medial thigh abscesses Post-op Diagnosis:: Same Procedure performed:: Incision and drainage of right medial thigh abscesses Surgeon:: Lm Klein MD Anesthesia: local Estimated blood loss (mL): 5 Operative findings:: Small pockets of purulent fluid noted at both sites Operative note:: After informed consent was obtained the patient was maintained in a supine position in her hospital room. Her right medial thigh was prepped and draped in a sterile fashion. After infiltration local anesthetic an incision was made along the central portion of both right medial thigh abscesses. Fluid was obtained from each site for Gram stain and culture. Blunt dissection into the subcutaneous tissue for improved opening and debridement of the cavity was then completed. Both wounds were packed open with gauze. Dressings were applied. She tolerated the procedure well. Condition: stable Disposition: no change Complications:: No immediate
--- NOTE | 2019-02-09 11:55 | Pharmacy Consult Notes ---
[facility] Pharmacy VTE Monitoring - Patient Demographics Admission date: 02/09/19 Report Date: 02/09/19 Time: 11:54 Allergies/Adverse Reactions: Patient Allergies aripiprazole [From ABILIFY] Allergy (Mild, Verified 11/11/18 14:45) Penicillins [PENICILLINS] Allergy (Mild, Verified 11/11/18 14:45) codeine [CODEINE] Allergy (Unknown, Verified 11/11/18 14:45) paroxetine [PAROXETINE] Allergy (Unknown, Verified 11/11/18 14:45) PPD black rubber mix [PPD BLACK RUBBER MIX] Allergy (Unknown, Verified 11/11/18 14:45) tuberculin, purified protein deriva [From TUBERSOL] Allergy (Unknown, Verified 11/11/18 14:45) venom-honey bee Allergy (Unknown, Verified 11/11/18 14:45) venom-wasp Allergy (Unknown, Verified 11/11/18 14:45) Bumble Bee Allergy (Unknown, Uncoded 10/14/18 11:06) Height: 1.65 m Weight: 98.911 kg Patient Problems: Current Active Problems Abscess of skin or subcutaneous tissue (Acute) Severe sepsis (Acute) Diabetes mellitus (Acute) Obesity (BMI 30-39.9) (Acute) Renal insufficiency (Acute) Schizophrenia (Acute) - VTE Risk Labs: VTE Related Lab Results Hgb 12.0 g/dL (12.2-16.2) L 02/09/19 05:25 Hct 38.2 % (37.0-47.0) 02/09/19 05:25 Plt Count 196 K/mm3 (142-424) 02/09/19 05:25 BUN 23 mg/dL (7-18) H 02/09/19 05:25 Creatinine 1.36 mg/dL (0.55-1.02) H D 02/09/19 05:25 Estimated Creat Clear 72 mL/min (50-200) 02/09/19 05:25 Was VTE Risk Assessment Performed: Yes VTE Score: 4 VTE Risk Level: Low Risk Clinical Trial Participant: No - Prophylaxis VTE Prophylaxis Ordered?: Yes Types of VTE Prophylaxis: TEDS Knee High
--- NOTE | 2019-02-10 06:44 | Progress Note ---
Subjective Patient reports: other (resting) Exam Vital signs and Labs for Last 24 Hours: Temp Pulse Resp BP Pulse Ox 98.0 F 79 18 113/64 97 02/10/19 04:00 02/10/19 04:00 02/10/19 04:00 02/10/19 04:00 02/10/19 04:00 Laboratory Results - last 24 hr 02/09/19 11:27: POC Glucose 406 H* 02/09/19 16:48: POC Glucose 405 H* 02/09/19 21:50: POC Glucose 353 H* I & O for Last 24 hours: Intake & Output 02/07/19 02/08/19 02/09/19 02/10/19 11:59 11:59 11:59 11:59 Intake Total 717 / 717 3300 / 3300 Output Total 1350 / 1350 1700 / 1700 Balance -633 / -633 1600 / 1600 Weight 218 lb 1 oz 220 lb 4 oz Microbiology Reports for the Last 24 Hours: Microbiology 02/09/19 01:00 Groin Gram Stain - Final 02/09/19 01:00 Groin Wound Culture - Preliminary NO GROWTH AFTER 24 HOURS 02/09/19 09:30 Thigh - Right Gram Stain - Final - Constitutional no acute distress - *Routine Respiratory Exam Absent: respiratory distress - *Routine Cardiovascular Exam Present: RRR Progress Note: A&P (1) Abscess of skin or subcutaneous tissue Status: Acute Assessment and plan: begin dressing changes today Current Visit: Yes (2) Diabetes mellitus Status: Acute Current Visit: Yes (3) Schizophrenia Status: Acute Current Visit: Yes (4) HTN (hypertension) Status: Acute Current Visit: No
[2019-02-10 08:39] LABS: Basophils # 0.1 K/mm3 (0-0.2); Basophils % 0.5 % (0.1-2.0); Eosinophils # 0.5 K/mm3 (0.0-0.4); Eosinophils % 3.8 % (0.1-12.0); Hemoglobin 11.7 g/dL (12.2-16.2); Lymphocytes # 1.4 K/mm3 (0.7-4.5); Lymphocytes % 11.3 % (10-50); Mean Corpuscular HGB Conc 31.5 g/dL (31.8-35.4); Mean Corpuscular Volume 89.8 fl (81-99); Monocytes # 0.7 K/mm3 (0.1-1.0); Monocytes % 5.7 % (1.7-9.3); Neutrophils # 9.6 K/mm3 (1.8-7.8); Neutrophils % 78.8 % (37.0-80.0); Platelet Count 144 K/mm3 (142-424); Red Blood Count 4.13 M/mm3 (4.20-5.40); White Blood Count 12.2 K/mm3 (4.8-10.8)
[2019-02-10 08:51] LABS: Albumin Level 2.7 gm/dL (3.4-5.0); Albumin/Globulin Ratio 0.8 (1.1-1.8); Anion Gap 14.2 mEq/L (5-15); Bilirubin,Total 0.4 mg/dL (0.2-1.0); Globulin 3.3 gm/dl (1.3-3.2)
[2019-02-10 09:13] LABS: Calcium 7.9 mg/dL (8.5-10.1)
--- NOTE | 2019-02-10 12:25 | Discharge Summary ---
General - General Admission date:: 02/09/19 Discharge date: 02/10/19 HPI HPI: 58-year-old female presented to the ER with complaints of 2 abscess areas on the right inner thigh. Patient states he just showed up yesterday. Patient admitted for abscesses for surgery consult and newly diagnosed diabetes. Hospital Course Hospital Course: surgery consult- see note I&D- see note wound cx still pending diabetic- add metformin and glipizide and check bmp every month for 3 months will dc back to personal intermediate on antibiotics- keflex tid and bactrium for 10 days while waiting for cx. home health for dressing changes. follow up on in office. Objective Vital signs: Temp Pulse Resp BP Pulse Ox 97.9 F 104 H 18 155/86 H 95 02/10/19 08:00 02/10/19 08:00 02/10/19 08:00 02/10/19 08:00 02/10/19 08:00 no acute distress - *Routine HEENT Exam Head: Present: normocephalic Eye: Present: PERRL ENT: Present: mucous membranes moist - *Routine Respiratory Exam Present: CTA bilaterally - *Routine Cardiovascular Exam Present: RRR - *Routine Extremities Exam Present: full ROM - *Routine Skin Exam Present: wounds Comments: dressing to rt upper inner thigh c/d/i. - *Routine Neurological Exam Present: alert, oriented X3 - Routine Psychiatric Exam Present: normal affect Results Labs on day of discharge: Labs from last 24 hours 02/10/19 02/10/19 02/10/19 11:26 08:25 08:25 WBC RBC Hgb Hct MCV MCH MCHC RDW Plt Count MPV Neut % (Auto) Lymph % (Auto) [facility] % (Auto) Eos % (Auto) Baso % (Auto) Neut # (Auto) Lymph # (Auto) [facility] # (Auto) Eos # (Auto) Baso # (Auto) Sodium 133 L Potassium 3.2 L Chloride 96 L Carbon Dioxide 26 Anion Gap 14.2 BUN 16 D Creatinine 1.10 H Estimated Creat Clear 90 Estimated GFR 51 L Est GFR ( Amer) 62 D Glucose 399 H POC Glucose 466 H* Hemoglobin A1c 13.4 H Calcium 7.9 L Total Bilirubin 0.4 AST 23 ALT 30 D Alkaline Phosphatase 130 H Total Protein 6.0 L Albumin 2.7 L D Globulin 3.3 H Albumin/Globulin Ratio 0.8 L 02/10/19 02/10/19 02/09/19 08:25 06:26 21:50 WBC 12.2 H RBC 4.13 L Hgb 11.7 L Hct 37.0 MCV 89.8 MCH 28.3 MCHC 31.5 L RDW 14.0 Plt Count 144 D MPV 12.0 H Neut % (Auto) 78.8 Lymph % (Auto) 11.3 [facility] % (Auto) 5.7 Eos % (Auto) 3.8 Baso % (Auto) 0.5 Neut # (Auto) 9.6 H Lymph # (Auto) 1.4 [facility] # (Auto) 0.7 Eos # (Auto) 0.5 H Baso # (Auto) 0.1 Sodium Potassium Chloride Carbon Dioxide Anion Gap BUN Creatinine Estimated Creat Clear Estimated GFR Est GFR ( Amer) Glucose POC Glucose 306 H* 353 H* Hemoglobin A1c Calcium Total Bilirubin AST ALT Alkaline Phosphatase Total Protein Albumin Globulin Albumin/Globulin Ratio 02/09/19 16:48 WBC RBC Hgb Hct MCV MCH MCHC RDW Plt Count MPV Neut % (Auto) Lymph % (Auto) [facility] % (Auto) Eos % (Auto) Baso % (Auto) Neut # (Auto) Lymph # (Auto) [facility] # (Auto) Eos # (Auto) Baso # (Auto) Sodium Potassium Chloride Carbon Dioxide Anion Gap BUN Creatinine Estimated Creat Clear Estimated GFR Est GFR ( Amer) Glucose POC Glucose 405 H* Hemoglobin A1c Calcium Total Bilirubin AST ALT Alkaline Phosphatase Total Protein Albumin Globulin Albumin/Globulin Ratio Preliminary micro results at discharge 02/09/19 09:30 Wound Culture - Preliminary Thigh - Right NO GROWTH AFTER 24 HOURS 02/09/19 09:30 Wound Culture - Preliminary Thigh - Right NO GROWTH AFTER 24 HOURS 02/09/19 01:00 Wound Culture - Preliminary Groin - Additional Comments rounded with dr pressley all orders per wendie DS: Diagnosis - Discharge Diagnosis (1) Abscess of skin or subcutaneous tissue Status: Acute (2) Diabetes mellitus Status: Acute (3) Schizophrenia Status: Acute (4) HTN (hypertension) Status: Acute Discharge Plan - Patient Discharge Instructions ACTIVITY: Continue current activity DIET: continue same diet Patient Instructions: Acute Renal Failure, DI for Sepsis -- Adult, DI for Skin Abscess - Follow up Plan Follow up with: Lm Klein MD [Staff Physician] - 1 week Johnny Elizabeth APRN [Nurse Practitioner] - 02/14/19 Disposition: Home, Self-Fpc Medications: Home Medications Medication Instructions Recorded Confirmed Type atorvastatin 80 mg tablet 80 mg PO ONCE 09/08/17 02/09/19 History benztropine 1 mg tablet 1 mg PO BID 09/08/17 02/09/19 History buspirone 30 mg tablet 30 mg PO BID tab 09/08/17 02/09/19 History escitalopram 20 mg tablet 20 mg PO ONCE 09/08/17 02/09/19 History haloperidol 10 mg tablet 10 mg PO TID 09/08/17 02/09/19 History ibuprofen 600 mg tablet 600 mg PO TID 09/08/17 02/09/19 History loperamide 2 mg capsule 2 mg PO Q4H 09/08/17 02/09/19 History olanzapine 20 mg tablet 20 mg PO ONCE 09/08/17 02/09/19 History pantoprazole 20 mg tablet,delayed 40 mg PO QHS 09/08/17 02/09/19 History release perphenazine 8 mg tablet 8 mg PO BID 09/08/17 02/09/19 History phenytoin sodium extended 100 mg 100 mg PO TID 09/08/17 02/09/19 History capsule potassium chloride ER 20 mEq 20 meq PO BID 09/08/17 02/09/19 History tablet,extended release(part/cryst) promethazine 25 mg tablet 25 mg PO Q6H PRN 09/08/17 02/09/19 History triamterene 75 1 tab PO BID tab 09/08/17 02/09/19 History mg-hydrochlorothiazide 50 mg tablet Loratadine [Claritin] 10 mg PO DAILY 02/08/19 02/08/19 History Oxybutynin Chloride [Oxybutynin 5 mg PO DAILY 02/08/19 02/08/19 History Chloride ER] lamoTRIgine [Lamictal Odt] 50 mg PO BID 02/08/19 02/08/19 History levETIRAcetam [Levetiracetam] 500 mg PO BID 02/08/19 02/08/19 History Metformin HCl [Metformin HCl ER] 500 mg PO BID 30 Days #60 02/10/19 Rx tab.er.24h Sulfamethoxazole/Trimethoprim 1 each PO BID 10 Days #20 tab 02/10/19 Rx [Bactrim DS tablet] cephALEXin [Keflex 500mg Cap] 500 mg PO TID 10 Days #30 cap 02/10/19 Rx glipiZIDE [Glipizide ER] 2.5 mg PO DAILY 30 Days #30 02/10/19 Rx tab.er.24 Prescriptions/Medication Reconciliation: New Sulfamethoxazole/Trimethoprim [Bactrim DS tablet] 1 each PO BID 10 Days #20 tab cephALEXin [Keflex 500mg Cap] 500 mg PO TID 10 Days #30 cap Metformin HCl [Metformin HCl ER] 500 mg PO BID 30 Days #60 tab.er.24h glipiZIDE [Glipizide ER] 2.5 mg PO DAILY 30 Days #30 tab.er.24 Continued benztropine 1 mg tablet 1 mg PO BID phenytoin sodium extended 100 mg capsule 100 mg PO TID escitalopram 20 mg tablet 20 mg PO ONCE haloperidol 10 mg tablet 10 mg PO TID atorvastatin 80 mg tablet 80 mg PO ONCE loperamide 2 mg capsule 2 mg PO Q4H triamterene 75 mg-hydrochlorothiazide 50 mg tablet 1 tab PO BID tab olanzapine 20 mg tablet 20 mg PO ONCE pantoprazole 20 mg tablet,delayed release 40 mg PO QHS perphenazine 8 mg tablet 8 mg PO BID buspirone 30 mg tablet 30 mg PO BID tab potassium chloride ER 20 mEq tablet,extended release(part/cryst) 20 meq PO BID promethazine 25 mg tablet 25 mg PO Q6H PRN PRN Reason: Nausea Loratadine [Claritin] 10 mg PO DAILY levETIRAcetam [Levetiracetam] 500 mg PO BID lamoTRIgine [Lamictal Odt] 50 mg PO BID Oxybutynin Chloride [Oxybutynin Chloride ER] 5 mg PO DAILY Changed Ibuprofen [Ibuprofen 600mg Tablet] 600 mg PO TID PRN #0 PRN Reason: Breakthru Mild Pain - Problem Reconciliation Problems Reviewed?: Yes
== END 2019-02-10 14:18 | disposition home or self-care (01) ==
LOC: 2ND 22:06 → ER 22:06 → 2ND 02-09 01:37
PROVIDERS: ADMIT Emergency Medicine; ATTEND Emergency Medicine
CPT/HCPCS: 10061; 36415; 80048; 80053; 80076; 80185; 81001; 82009; 82962; 83036; 83605; 85007; 85025; 87040; 87070; 87077; 87186; 87205; 96365; 96366; 96367; 96375; 97162; 99284; G0378; J3370

== ENCOUNTER 2019-02-11 07:50 | Outpatient (CLI) | payer MEDICARE, MEDICAID, SELFPAY ==
[2019-02-11 08:10] VITALS: BP 118/88; PULSE 85; RESP 16; TEMP 36.8; O2SAT 93
[2019-02-11 08:40] VITALS: BP 120/85; PULSE 88; RESP 18; O2SAT 94
== END 2019-02-11 08:40 | disposition home or self-care (01) ==
LOC: INF 07:51
PROVIDERS: PCP Emergency Medicine; Visit Provider Emergency Medicine
DX: Z48.01 Encounter for change or removal of surgical wound dressing (principal); L02.415 Cutaneous abscess of right lower limb; E11.69 Type 2 diabetes mellitus with other specified complication; A41.9 Sepsis, unspecified organism
CPT/HCPCS: G0463

== ENCOUNTER → 2019-02-12 07:57 | Outpatient (CLI) | payer MEDICARE, MEDICAID, SELFPAY ==
[2019-02-12 08:20] VITALS: BP 126/85; PULSE 91; RESP 16; TEMP 36.7; O2SAT 100
== END ==
PROVIDERS: PCP Emergency Medicine; Visit Provider Emergency Medicine
DX: Z48.01 Encounter for change or removal of surgical wound dressing (principal); E11.69 Type 2 diabetes mellitus with other specified complication; A41.9 Sepsis, unspecified organism
CPT/HCPCS: G0463

== ENCOUNTER 2019-02-13 10:54 | Outpatient (CLI) | payer MEDICARE, MEDICAID, SELFPAY | END 2019-02-13 11:15 | disposition home or self-care (01) | LOC: INF 10:54 | PROVIDERS: Visit Provider Emergency Medicine | DX: Z48.01 Encounter for change or removal of surgical wound dressing (principal); L02.415 Cutaneous abscess of right lower limb; E11.69 Type 2 diabetes mellitus with other specified complication; A41.9 Sepsis, unspecified organism | CPT/HCPCS: G0463 ==

== ENCOUNTER 2019-02-14 11:04 | Outpatient (CLI) | payer MEDICARE, MEDICAID, SELFPAY ==
--- NOTE | 2019-02-14 11:55 | PC.NURSE ---
TWO AREAS THAT PACKING WITH 2X2 IN THE SMALL AREA TO THE TOP; BOTTOM WOUND IS BEING PACKED WITH [id number] WITH ABD PAD; PT TOLERATED WITHOUT ANY PROBLEMS;
== END 2019-02-14 11:30 | disposition home or self-care (01) ==
LOC: INF 11:04
PROVIDERS: PCP Emergency Medicine; Visit Provider Emergency Medicine
DX: Z48.01 Encounter for change or removal of surgical wound dressing (principal); L02.415 Cutaneous abscess of right lower limb; E11.69 Type 2 diabetes mellitus with other specified complication; A41.9 Sepsis, unspecified organism
CPT/HCPCS: G0463

== ENCOUNTER 2019-02-15 10:53 | Outpatient (CLI) | payer MEDICARE, MEDICAID, SELFPAY | END 2019-02-15 11:15 | disposition home or self-care (01) | LOC: INF 10:53 | PROVIDERS: Visit Provider Emergency Medicine | DX: Z48.01 Encounter for change or removal of surgical wound dressing (principal); L02.415 Cutaneous abscess of right lower limb; E11.69 Type 2 diabetes mellitus with other specified complication; A41.9 Sepsis, unspecified organism; Z79.4 Long term (current) use of insulin | CPT/HCPCS: G0463 ==

== ENCOUNTER 2019-02-16 10:40 | Outpatient (CLI) | payer MEDICARE, MEDICAID, SELFPAY | END 2019-02-16 11:00 | disposition home or self-care (01) | LOC: INF 10:40 | PROVIDERS: Visit Provider Emergency Medicine | DX: L02.415 Cutaneous abscess of right lower limb (principal); E11.69 Type 2 diabetes mellitus with other specified complication; A41.9 Sepsis, unspecified organism; Z79.84 Long term (current) use of oral hypoglycemic drugs | CPT/HCPCS: G0463 ==

== ENCOUNTER 2019-02-17 09:20 | Outpatient (CLI) | payer MEDICARE, MEDICAID, SELFPAY | END 2019-02-17 09:50 | disposition home or self-care (01) | LOC: INF 09:20 | PROVIDERS: Visit Provider Emergency Medicine | DX: Z48.01 Encounter for change or removal of surgical wound dressing (principal); L02.415 Cutaneous abscess of right lower limb; E11.69 Type 2 diabetes mellitus with other specified complication; A41.9 Sepsis, unspecified organism; Z79.84 Long term (current) use of oral hypoglycemic drugs | CPT/HCPCS: G0463 ==

== ENCOUNTER → 2019-02-18 09:27 | Outpatient (CLI) | payer MEDICARE, MEDICAID, SELFPAY ==
[2019-02-18 09:59] VITALS: BP 109/53; PULSE 110; RESP 22; TEMP 36.9; O2SAT 94; BMI 35.4
[2019-02-18 10:03] VITALS: BP 103/62; PULSE 105; RESP 20; TEMP 36.8; O2SAT 93
== END ==
PROVIDERS: PCP Emergency Medicine; Visit Provider Emergency Medicine
DX: Z48.01 Encounter for change or removal of surgical wound dressing (principal); L02.415 Cutaneous abscess of right lower limb; E11.69 Type 2 diabetes mellitus with other specified complication; A41.9 Sepsis, unspecified organism
CPT/HCPCS: G0463

== ENCOUNTER → 2019-02-19 11:44 | Outpatient (CLI) | payer MEDICARE, MEDICAID, SELFPAY ==
[2019-02-19 12:08] VITALS: BP 118/73; PULSE 112; RESP 16; TEMP 36.6; O2SAT 95; BMI 35.4
[2019-02-19 12:11] VITALS: BP 112/70; PULSE 106; RESP 16; TEMP 36.6; O2SAT 95
== END ==
PROVIDERS: PCP Emergency Medicine; Visit Provider Emergency Medicine
DX: Z48.01 Encounter for change or removal of surgical wound dressing (principal); L02.415 Cutaneous abscess of right lower limb; E11.69 Type 2 diabetes mellitus with other specified complication; A41.9 Sepsis, unspecified organism
CPT/HCPCS: G0463

== ENCOUNTER 2019-02-20 10:40 | Observation (INO) ==
[2019-02-20 11:19] LABS: Basophils # 0.1 K/mm3 (0-0.2); Basophils % 0.6 % (0.1-2.0); Eosinophils # 0.3 K/mm3 (0.0-0.4); Eosinophils % 2.3 % (0.1-12.0); Hemoglobin 12.6 g/dL (12.2-16.2); Lymphocytes # 1.9 K/mm3 (0.7-4.5); Lymphocytes % 15.7 % (10-50); Mean Corpuscular HGB Conc 31.4 g/dL (31.8-35.4); Mean Corpuscular Volume 89.8 fl (81-99); Monocytes # 0.7 K/mm3 (0.1-1.0); Monocytes % 6.2 % (1.7-9.3); Neutrophils % 75.2 % (37.0-80.0); Platelet Count 234 K/mm3 (142-424); Red Blood Count 4.46 M/mm3 (4.20-5.40); White Blood Count 11.9 K/mm3 (4.8-10.8)
[2019-02-20 11:20] LABS: Albumin Level 3.5 gm/dL (3.4-5.0); Albumin/Globulin Ratio 0.9 (1.1-1.8); Anion Gap 16.1 mEq/L (5-15); Bilirubin,Total 0.3 mg/dL (0.2-1.0); Calcium 8.6 mg/dL (8.5-10.1); Total Protein,Serum 7.5 gm/dL (6.4-8.2)
--- NOTE | 2019-02-20 12:00 | Emergency Department Note ---
ED Disposition Clinical Impression: Severe sepsis, Abscess of skin or subcutaneous tissue, Tachycardia, Acute kidney injury, Dehydration Disposition: Admitted as Observation Condition on Discharge: Fair Referrals: Jerrod Douglass MD [Primary Care Provider] - Time of Disposition: 13:42 - Critical Care Critical Care Time: No Attestation: On 02/20/19, the high probability of a clinically significant, sudden or life threatening deterioration of the following system(s) required my full and direct attention, intervention and personal management. The time I documented below is in addition to time spent performing reported procedures but includes the following listed in this critical care notation. Medical Decision Making - Medical Records Medical records reviewed: Yes: I reviewed the patient's medical records. - Otis Inquiry Pt receiving controlled substance: No Otis was queried for this patient: No Vital Signs: 02/20/19 10:46 02/20/19 11:56 02/20/19 12:33 Temperature 98.7 F 99.1 F 98.9 F Temperature Source Oral Rectal Rectal Pulse Rate [Right Brachial] 96 H 94 H 94 H Respiratory Rate 15 17 20 Blood Pressure [Right Arm] 127/78 118/75 121/74 Blood Pressure Mean [Right Arm] 94 89 89 02 Sat by Pulse Oximetry 98 95 94 L Oxygen Delivery Method Nasal Cannula Nasal Cannula Oxygen Flow Rate (LPM) 2 2 02/20/19 13:22 Temperature Temperature Source Pulse Rate [Right Brachial] 98 H Respiratory Rate 19 Blood Pressure [Right Arm] 111/78 Blood Pressure Mean [Right Arm] 89 02 Sat by Pulse Oximetry 97 Oxygen Delivery Method Nasal Cannula Oxygen Flow Rate (LPM) 2 - Lab Data Lab results reviewed: Yes: I reviewed the patient's lab results. Lab Results 02/20/19 10:54: WBC 11.9 H, RBC 4.46, Hgb 12.6, Hct 40.0, MCV 89.8, MCH 28.2, MCHC 31.4 L, RDW 14.0, Plt Count 234, MPV 10.0, Neut % (Auto) 75.2, Lymph % (Auto) 15.7, [place] % (Auto) 6.2, Eos % (Auto) 2.3, Baso % (Auto) 0.6, Neut # (Auto) 9.0 H, Lymph # (Auto) 1.9, [place] # (Auto) 0.7, Eos # (Auto) 0.3, Baso # (Auto) 0.1 02/20/19 10:54: Sodium 137, Potassium 4.1, Chloride 99, Carbon Dioxide 26, Anion Gap 16.1 H, BUN 26 H, Creatinine 2.33 H, Estimated Creat Clear 40, Estimated GFR 22 L, Est GFR ( Amer) 26 L, Glucose 165 H, Calcium 8.6, Total Bilirubin 0.3, AST 41 H, ALT 38, Alkaline Phosphatase 132 H, Total Protein 7.5, Albumin 3.5, Globulin 4.0 H, Albumin/Globulin Ratio 0.9 L, Amylase 25 02/20/19 10:54: Lipase 68 L 02/20/19 11:20: Lactate 2.2 H 02/20/19 11:55: Urine Color Yellow, Urine Appearance Clear, Urine pH 6.0, Ur Specific [place] 1.015, Urine Protein Negative, Urine Glucose (UA) Negative, Urine Ketones Negative, Urine Blood Negative, Urine Nitrate Negative, Urine B ilirubin Negative, Urine Urobilinogen 0.2, Ur Leukocyte Esterase Negative, Urine WBC Occasional, Ur Squamous Epith Cells Occasional, Urine Bacteria Trace, Hyaline Casts 3-5, Coarse Granular Casts 3-5 Result diagrams: 02/20/19 10:54 02/20/19 10:54 Orders (Tests/Meds): ED MEDICATIONS Discontinued Medications Generic Name Dose Route Start Last Admin Trade Name Freq PRN Reason Stop Dose Admin Sodium Chloride 1,000 mls @ 999 mls/hr 02/20/19 11:00 02/20/19 10:54 Sod Chlor 0.9% 1000ml Bag IV 02/20/19 12:00 999 mls/hr .Q1H1M PRABHAKAR Administration Sodium Chloride 1,000 mls @ 999 mls/hr 02/20/19 12:00 Sod Chlor 0.9% 1000ml Bag IV 02/20/19 13:00 .Q1H1M PRABHAKAR Ondansetron HCl 4 mg 02/20/19 10:48 02/20/19 10:54 Zofran 4mg/2ml Vial IV 02/20/19 10:49 4 mg ONCE ONE Administration ORDERS Category Date Time Status Blood Culture Stat Micro 02/20/19 11:56 Ordered - Physician Consults Physician Consulted: wendie Time: 13:38 Reason -: Admission, Pt condition General Adult HPI - General Chief complaint: Abdominal Pain Stated complaint: vomiting Time Seen by Provider: 02/20/19 11:00 Mode of Arrival: Ambulatory Limitations: Physical Limitations Description of Symptoms (Recalled from ER Triage Doc. by RN): Pt brought in today by adult daycare staff for c/o nausea and vomiting since Wednesday. Staff members report patient was hospitalized recently for I&D's of boils, and has been getting her wounds packed by outpatient staff. Staff reports patient is at her baseline mental status, and patient is very hard to understand, very flat affect. Staff reports they think she is weaker, and possibly dehydrated. No fevers they are aware of. Pt reports her "belly hurts. - History of Present Illness HPI narrative: adominal pain and vomiting for couple days, has been witnessed. surgery within last week for i/d of abscess x 2 on thigh. on antibiotics, iv, through infusion center MD complaint: abdominal pain and vomiting for couple days, denies diarrhea. - Related Data Home Medications Medication Instructions Recorded Confirmed atorvastatin 80 mg tablet 80 mg PO ONCE 09/08/17 02/20/19 benztropine 1 mg tablet 1 mg PO BID 09/08/17 02/20/19 buspirone 30 mg tablet 30 mg PO BID tab 09/08/17 02/20/19 escitalopram 20 mg tablet 20 mg PO DAILY 09/08/17 02/20/19 haloperidol 10 mg tablet 10 mg PO TID 09/08/17 02/20/19 loperamide 2 mg capsule 2 mg PO Q4H 09/08/17 02/20/19 pantoprazole 20 mg tablet,delayed 40 mg PO QHS 09/08/17 02/20/19 release perphenazine 8 mg tablet 8 mg PO BID 09/08/17 02/20/19 phenytoin sodium extended 100 mg 100 mg PO TID 09/08/17 02/20/19 capsule potassium chloride ER 20 mEq 20 meq PO BID 09/08/17 02/20/19 tablet,extended release(part/cryst) promethazine 25 mg tablet 25 mg PO Q6H PRN 09/08/17 02/20/19 triamterene 75 1 tab PO BID tab 09/08/17 02/20/19 mg-hydrochlorothiazide 50 mg tablet Loratadine [Claritin] 10 mg PO DAILY 02/08/19 02/20/19 Oxybutynin Chloride [Oxybutynin 5 mg PO DAILY 02/08/19 02/20/19 Chloride ER] lamoTRIgine [Lamictal Odt] 50 mg PO BID 02/08/19 02/20/19 levETIRAcetam [Levetiracetam] 500 mg PO BID 02/08/19 02/20/19 Metformin HCl [Metformin HCl ER] 500 mg PO BID 02/15/19 02/20/19 Sulfamethoxazole/Trimethoprim 1 each PO BID 02/15/19 02/20/19 [Bactrim DS tablet] glipiZIDE [Glipizide ER] 2.5 mg PO DAILY 02/15/19 02/20/19 OLANZapine [Olanzapine] 20 mg PO HS 02/20/19 02/20/19 levoFLOXacin [Levaquin 500mg 500 mg PO DAILY 02/20/19 02/20/19 tab] Previous Rx's Medication Instructions Recorded Ibuprofen [Ibuprofen 600mg 600 mg PO TID PRN #0 02/10/19 Tablet] Allergies Allergy/AdvReac Type Severity Reaction Status Date / Time aripiprazole [From ABILIFY] Allergy Mild Verified 02/20/19 11:05 Penicillins [PENICILLINS] Allergy Mild Verified 02/20/19 11:05 codeine [CODEINE] Allergy Unknown Verified 02/20/19 11:05 paroxetine [PAROXETINE] Allergy Unknown Verified 02/20/19 11:05 PPD black rubber mix Allergy Unknown Verified 02/20/19 11:05 [PPD BLACK RUBBER MIX] tuberculin, purified protein Allergy Unknown Verified 02/20/19 11:05 deriva [From TUBERSOL] venom-honey bee Allergy Unknown Verified 02/20/19 11:05 venom-wasp Allergy Unknown Verified 02/20/19 11:05 Bumble Bee Allergy Unknown Uncoded 10/14/18 11:06 [facility] History - Hepatitis A Screen Drug use history?: No High risk sexual behaviors?: No History of sexually transmitted infection?: No Currently employed?: No Childcare worker?: No Do you have indoor plumbing?: Yes Do you have electricity?: Yes Attestation statement:: This patient has been screened for Hepatitis A risk factors. I have reviewed the patient's past medical history: No Medical History: Reports:: Anxiety, Chronic Obstructive Pulmonary Disease (COPD), Diabetes Mellitus Type 2, Gastroesophageal Reflux Disease(GERD), Hyperlipidemia, Hypertension, Seizures Denies:: Cancer, Diabetes Mellitus Type 1, MRSA Other Medical History: Reports: Anemia Other Surgeries: Yes: Cholecystectomy, Tubal Ligation Amputation: No - Social History Smoking Status: Current every day smoker Tobacco Type: cigarettes # Packs/Day (cigarettes): 1 Alcohol Intake: never Substance Use Type: denies use Occupational Status: disabled Housing: other - Psychiatric History Pschychiatric History:: Reports:: Anxiety Family Hx:: Coronary Artery Disease ROS Obtained: Yes All systems reviewed & no additional complaints - Constitutional Constitutional: Denies fever(s) - Eyes Eyes: Reports system reviewed and no additional complaints, except as docu - ENT Ears, Nose, Mouth, and Throat: Reports system reviewed and no additional complaints, except as docu - Cardiovascular Cardiovascular: Denies chest pain, Denies chest pain at rest, Denies dyspnea - Respiratory Respiratory: No cough, No dyspnea, No dyspnea on exertion - Gastrointestinal Gastrointestingal: Reports: abdominal pain, vomiting. Denies: diarrhea - Musculoskeletal Musculoskeletal: Denies limited range of motion - Integumentary/Breasts Skin/Breast: Reports skin pain, Reports wounds, Reports other (right thigh, s/p incision/drainage) - Neurologic Neurologic: Denies headache(s) - Hematologic/Lymphatic Henatologic/Lymphatic: Denies easy bleeding Physical Exam - General General appearance: alert, in no apparent distress, other (appears acutely ill) - ENT ENT exam: Present: normal exam, normal oropharynx, mucous membranes moist, TM's normal bilaterally, normal external ear exam - Chest Chest inspection: Present: normal inspection, symmetric chest wall rise. Absen t: tenderness - Respiratory Respiratory exam: Present: normal lung sounds bilaterally. Absent: respiratory distress - Cardiovascular Cardiovascular exam: Present: regular rate, normal rhythm. Absent: JVD - Abdominal Exam Abdominal exam: Present: soft, normal bowel sounds. Absent: distention, tenderness, guarding - Extremities Exam Extremities exam: Present: normal inspection, full ROM, normal capillary refill. Absent: calf tenderness - Back Exam Back exam: Present: normal inspection. Absent: tenderness - Neurological Exam Neurological exam: Present: alert, oriented X3 - Psychiatric Psychiatric exam: Present: normal affect - Skin Skin exam: Present: warm, other (surgical wounds upper thigh, mild erythema surrouding incision/drainage wounds. no induration nor abscess appreciated Further info can be obtained from outpatient clinic who changed her packing this am)
[2019-02-20 12:02] LABS: Microscopic, Urine URINE MICROSCOPIC (MICROSCOPIC)
[2019-02-20 12:04] LABS: Appearance,Urine CLEAR (Clear); Bilirubin,Urine Negative (Negative); Blood, Urine Negative (Negative); Color,Urine YELLOW (Yellow); Glucose,Urine (UA) Negative (Negative); Ketones,Urine Negative (Negative); Leukocyte Esterase,Urine Negative (Negative); Protein,Urine Negative (Negative); Specific Gravity, Urine 1.015 (1.005-1.030); Urobilinogen,Urine 0.2 EU/dl (0.2)
[2019-02-20 12:28] LABS: WBC,Urine Occasional #/hpf (0-3)
[2019-02-20 12:29] LABS: Bacteria,Urine Trace /lpf; Squamous Epithelial Cell,Urine Occasional #/hpf (0-5)
--- NOTE | 2019-02-20 13:48 | Pharmacy Consult Notes ---
- Pharmacy Consult Date: 02/20/19 Time: 13:47 Referring provider: DR. RODRIGUEZ Reason for Consult:: VANCOMYCIN DOSING Allergies and ADEs:: Allergies Allergy/AdvReac Type Severity Reaction Status Date / Time aripiprazole [From ABILIFY] Allergy Mild Verified 02/20/19 11:05 Penicillins [PENICILLINS] Allergy Mild Verified 02/20/19 11:05 codeine [CODEINE] Allergy Unknown Verified 02/20/19 11:05 paroxetine [PAROXETINE] Allergy Unknown Verified 02/20/19 11:05 PPD black rubber mix Allergy Unknown Verified 02/20/19 11:05 [PPD BLACK RUBBER MIX] tuberculin, purified protein Allergy Unknown Verified 02/20/19 11:05 deriva [From TUBERSOL] venom-honey bee Allergy Unknown Verified 02/20/19 11:05 venom-wasp Allergy Unknown Verified 02/20/19 11:05 Bumble Bee Allergy Unknown Uncoded 10/14/18 11:06 Home Medications:: Home Medications Medication Instructions Recorded Confirmed Type atorvastatin 80 mg tablet 80 mg PO ONCE 09/08/17 02/20/19 History benztropine 1 mg tablet 1 mg PO BID 09/08/17 02/20/19 History buspirone 30 mg tablet 30 mg PO BID tab 09/08/17 02/20/19 History escitalopram 20 mg tablet 20 mg PO DAILY 09/08/17 02/20/19 History haloperidol 10 mg tablet 10 mg PO TID 09/08/17 02/20/19 History loperamide 2 mg capsule 2 mg PO Q4H 09/08/17 02/20/19 History pantoprazole 20 mg tablet,delayed 40 mg PO QHS 09/08/17 02/20/19 History release perphenazine 8 mg tablet 8 mg PO BID 09/08/17 02/20/19 History phenytoin sodium extended 100 mg 100 mg PO TID 09/08/17 02/20/19 History capsule potassium chloride ER 20 mEq 20 meq PO BID 09/08/17 02/20/19 History tablet,extended release(part/cryst) promethazine 25 mg tablet 25 mg PO Q6H PRN 09/08/17 02/20/19 History triamterene 75 1 tab PO BID tab 09/08/17 02/20/19 History mg-hydrochlorothiazide 50 mg tablet Loratadine [Claritin] 10 mg PO DAILY 02/08/19 02/20/19 History Oxybutynin Chloride [Oxybutynin 5 mg PO DAILY 02/08/19 02/20/19 History Chloride ER] lamoTRIgine [Lamictal Odt] 50 mg PO BID 02/08/19 02/20/19 History levETIRAcetam [Levetiracetam] 500 mg PO BID 02/08/19 02/20/19 History Ibuprofen [Ibuprofen 600mg 600 mg PO TID PRN #0 02/10/19 02/20/19 Rx Tablet] Metformin HCl [Metformin HCl ER] 500 mg PO BID 02/15/19 02/20/19 History Sulfamethoxazole/Trimethoprim 1 each PO BID 02/15/19 02/20/19 History [Bactrim DS tablet] glipiZIDE [Glipizide ER] 2.5 mg PO DAILY 02/15/19 02/20/19 History OLANZapine [Olanzapine] 20 mg PO HS 02/20/19 02/20/19 History levoFLOXacin [Levaquin 500mg 500 mg PO DAILY 02/20/19 02/20/19 History tab] Height: 1.65 m Weight: 94.801 kg Laboratory Results:: Laboratory Results - last 24 hr 02/20/19 10:54: WBC 11.9 H, RBC 4.46, Hgb 12.6, Hct 40.0, MCV 89.8, MCH 28.2, MCHC 31.4 L, RDW 14.0, Plt Count 234, MPV 10.0, Neut % (Auto) 75.2, Lymph % (Auto) 15.7, [place] % (Auto) 6.2, Eos % (Auto) 2.3, Baso % (Auto) 0.6, Neut # (Auto) 9.0 H, Lymph # (Auto) 1.9, [place] # (Auto) 0.7, Eos # (Auto) 0.3, Baso # (Auto) 0.1 02/20/19 10:54: Sodium 137, Potassium 4.1, Chloride 99, Carbon Dioxide 26, Anion Gap 16.1 H, BUN 26 H, Creatinine 2.33 H, Estimated Creat Clear 40, Estimated GFR 22 L, Est GFR ( Amer) 26 L, Glucose 165 H, Calcium 8.6, Total Bilirubin 0.3, AST 41 H, ALT 38, Alkaline Phosphatase 132 H, Total Protein 7.5, Albumin 3.5, Globulin 4.0 H, Albumin/Globulin Ratio 0.9 L, Amylase 25 02/20/19 10:54: Lipase 68 L 02/20/19 11:20: Lactate 2.2 H 02/20/19 11:55: Urine Color Yellow, Urine Appearance Clear, Urine pH 6.0, Ur Specific [place] 1.015, Urine Protein Negative, Urine Glucose (UA) Negative, Urine Ketones Negative, Urine Blood Negative, Urine Nitrate Negative, Urine Bilirubin Negative, Urine Urobilinogen 0.2, Ur Leukocyte Esterase Negative, Urine WBC Occasional, Ur Squamous Epith Cells Occasional, Urine Bacteria Trace, Hyaline Casts 3-5, Coarse Granular Casts 3-5 Medical History: Reports:: Anxiety, Chronic Obstructive Pulmonary Disease (COPD), Diabetes Mellitus Type 2, Gastroesophageal Reflux Disease(GERD), Hyperlipidemia, Hypertension, Seizures Denies:: Cancer, Diabetes Mellitus Type 1, MRSA Assessment and Plan - Assessment and plan all Dx Assessment and Plan for all problems:: BASED ON PATIENT'S FACTORS, RECOMMEND STARTING WITH VANCOMYCIN 1500 MG Q36H AT THIS TIME. PHARMACY WILL FOLLOW DAILY AND ADJUST APPROPRIATE.
--- NOTE | 2019-02-20 22:58 | History & Physical Report ---
*Admission Date: 02/20/19 *Chief complaint: vomiting *History of present illness: this wf who has hx of vomiting over the last few days - she has hx of recent skin infection and is doing daily wd care - she was seen in the ed -t brought in today by adult daycare staff for c/o nausea and vomiting since Wednesday. Staff members report patient was hospitalized recently for I&D's of boils, and has been getting her wounds packed by outpatient staff. Staff reports patient is at her baseline mental status, and patient is very hard to understand, very flat affect. Staff reports they think she is weaker, and possibly dehydrated. No fevers they are aware of. Pt reports her "belly hurts. pt was admitted for ivf and continued abx [facility] History I have reviewed the patient's past medical history: Yes Medical History: Reports:: Anxiety, Chronic Obstructive Pulmonary Disease (COPD), Diabetes Mellitus Type 2, Gastroesophageal Reflux Disease(GERD), Hyperlipidemia, Hypertension, Seizures Denies:: Cancer, Diabetes Mellitus Type 1, MRSA *Have you ever received a pneumonia vaccine?: No *Have you received a flu vaccine this season?: Yes Other Medical History: Reports: Anemia Other Surgeries: Yes: Cholecystectomy, Tubal Ligation Amputation: No - *Social History Smoking Status: Current every day smoker Tobacco Type: cigarettes # Packs/Day (cigarettes): 4 Alcohol Intake: never Substance Use Type: denies use *Occupational Status:: disabled Housing: other Household Members: other *Travel in the last 8 weeks: None - Psychiatric History Pschychiatric History:: Reports:: Anxiety Family Hx:: Coronary Artery Disease Review of Systems - Review of Systems Review of systems:: pertinent systems reviewed and negative unless documented below - Constitutional Denies fever(s) - Eyes Denies change in vision - ENT Denies sore throat - *Cardiovascular Denies chest pain at rest - *Respiratory Denies cough - *Gastrointestinal Reports nausea, Reports vomiting, Denies abdominal pain - *Genitourinary Denies blood in urine - *Musculoskeletal Denies joint pain, Denies neck pain - Integumentary/Breasts Denies rash - *Neurologic Denies headache(s) - Psychiatric Reports anxiety Meds Home Medications Medication Instructions Recorded Confirmed Type atorvastatin 80 mg tablet 80 mg PO ONCE 09/08/17 02/20/19 History benztropine 1 mg tablet 1 mg PO BID 09/08/17 02/20/19 History buspirone 30 mg tablet 30 mg PO BID tab 09/08/17 02/20/19 History escitalopram 20 mg tablet 20 mg PO DAILY 09/08/17 02/20/19 History haloperidol 10 mg tablet 10 mg PO TID 09/08/17 02/20/19 History loperamide 2 mg capsule 2 mg PO Q4H 09/08/17 02/20/19 History pantoprazole 20 mg tablet,delayed 40 mg PO QHS 09/08/17 02/20/19 History release perphenazine 8 mg tablet 8 mg PO BID 09/08/17 02/20/19 History phenytoin sodium extended 100 mg 100 mg PO TID 09/08/17 02/20/19 History capsule potassium chloride ER 20 mEq 20 meq PO BID 09/08/17 02/20/19 History tablet,extended release(part/cryst) promethazine 25 mg tablet 25 mg PO Q6H PRN 09/08/17 02/20/19 History triamterene 75 1 tab PO BID tab 09/08/17 02/20/19 History mg-hydrochlorothiazide 50 mg tablet Loratadine [Claritin] 10 mg PO DAILY 02/08/19 02/20/19 History Oxybutynin Chloride [Oxybutynin 5 mg PO DAILY 02/08/19 02/20/19 History Chloride ER] lamoTRIgine [Lamictal Odt] 50 mg PO BID 02/08/19 02/20/19 History levETIRAcetam [Levetiracetam] 500 mg PO BID 02/08/19 02/20/19 History Ibuprofen [Ibuprofen 600mg 600 mg PO TID PRN #0 02/10/19 02/20/19 Rx Tablet] Metformin HCl [Metformin HCl ER] 500 mg PO BID 02/15/19 02/20/19 History Sulfamethoxazole/Trimethoprim 1 each PO BID 02/15/19 02/20/19 History [Bactrim DS tablet] glipiZIDE [Glipizide ER] 2.5 mg PO DAILY 02/15/19 02/20/19 History OLANZapine [Olanzapine] 20 mg PO HS 02/20/19 02/20/19 History levoFLOXacin [Levaquin 500mg 500 mg PO DAILY 02/20/19 02/20/19 History tab] Allergies Allergy/AdvReac Type Severity Reaction Status Date / Time aripiprazole [From ABILIFY] Allergy Mild Unknown Verified 02/20/19 15:12 allergy reaction Penicillins [PENICILLINS] Allergy Mild Unknown Verified 02/20/19 15:12 allergy reaction codeine [CODEINE] Allergy Unknown Unknown Verified 02/20/19 15:12 allergy reaction paroxetine [PAROXETINE] Allergy Unknown Unknown Verified 02/20/19 15:12 allergy reaction PPD black rubber mix Allergy Unknown Unknown Verified 02/20/19 15:12 [PPD BLACK RUBBER MIX] allergy reaction tuberculin, purified protein Allergy Unknown Unknown Verified 02/20/19 15:12 deriva allergy [From TUBERSOL] reaction venom-honey bee Allergy Unknown Unknown Verified 02/20/19 15:12 allergy reaction venom-wasp Allergy Unknown Unknown Verified 02/20/19 15:12 allergy reaction venom-wasp protein Allergy Unknown Verified 02/20/19 15:12 allergy reaction Exam Vital signs and Labs for Last 24 Hours: Temp Pulse Resp BP Pulse Ox 98.1 F 88 17 114/68 95 02/20/19 19:54 02/20/19 19:54 02/20/19 19:54 02/20/19 19:54 02/20/19 19:54 Laboratory Results - last 24 hr 02/20/19 10:54: WBC 11.9 H, RBC 4.46, Hgb 12.6, Hct 40.0, MCV 89.8, MCH 28.2, MCHC 31.4 L, RDW 14.0, Plt Count 234, MPV 10.0, Neut % (Auto) 75.2, Lymph % (Auto) 15.7, [place] % (Auto) 6.2, Eos % (Auto) 2.3, Baso % (Auto) 0.6, Neut # (Auto) 9.0 H, Lymph # (Auto) 1.9, [place] # (Auto) 0.7, Eos # (Auto) 0.3, Baso # (Auto) 0.1 02/20/19 10:54: Sodium 137, Potassium 4.1, Chloride 99, Carbon Dioxide 26, Anion Gap 16.1 H, BUN 26 H, Creatinine 2.33 H, Estimated Creat Clear 40, Estimated GFR 22 L, Est GFR ( Amer) 26 L, Glucose 165 H, Calcium 8.6, Total Bilirubin 0.3, AST 41 H, ALT 38, Alkaline Phosphatase 132 H, Total Protein 7.5, Albumin 3.5, Globulin 4.0 H, Albumin/Globulin Ratio 0.9 L, Amylase 25 02/20/19 10:54: Lipase 68 L 02/20/19 11:20: Lactate 2.2 H 02/20/19 11:55: Urine Color Yellow, Urine Appearance Clear, Urine pH 6.0, Ur Specific [place] 1.015, Urine Protein Negative, Urine Glucose (UA) Negative, Urine Ketones Negative, Urine Blood Negative, Urine Nitrate Negative, Urine Bilirubin Negative, Urine Urobilinogen 0.2, Ur Leukocyte Esterase Negative, Urine WBC Occasional, Ur Squamous Epith Cells Occasional, Urine Bacteria Trace, Hyaline Casts 3-5, Coarse Granular Casts 3-5 02/20/19 15:45: Lactate 1.4 02/20/19 16:16: POC Glucose 97 02/20/19 20:30: POC Glucose 181 H I & O for Last 24 hours: Intake & Output 02/18/19 02/19/19 02/20/19 02/21/19 11:59 11:59 11:59 11:59 Intake Total 2605 / 2605 Balance 2605 / 2605 Weight 209 lb 219 lb 3 oz - Constitutional no acute distress, obese - *Routine HEENT Exam Head: Present: normocephalic Eye: Present: EOMI, PERRL ENT: Present: mucous membranes dry - *Routine Neck Exam Present: supple - *Routine Respiratory Exam Present: decreased breath sounds. Absent: respiratory distress - *Routine Cardiovascular Exam Present: RRR, murmur - *Routine Abdominal Exam Present: soft - *Routine Extremities Exam Present: edema. Absent: calf tenderness - *Routine Skin Exam Comments: resolving thigh lesion - *Routine Neurological Exam Present: alert, CN II-XII intact - Routine Psychiatric Exam Present: normal affect. Absent: good insight Assessment and Plan (1) Abscess of skin or subcutaneous tissue Current visit: Yes Status: Acute Qualifiers: Site of cutaneous abscess: extremity Site of cutaneous abscess of extremity: lower extremity Laterality: right Qualified Code(s): L02.415 - Cutaneous abscess of right lower limb Category: Medical Code(s): L02.91 - Cutaneous abscess, unspecified (2) Diabetes mellitus Current visit: No Status: Acute Qualifiers: Diabetes mellitus type: type 2 Diabetes mellitus reservation manager insulin use: unspecified reservation manager insulin use status Diabetes mellitus complication status: with other specified complication Qualified Code(s): E11.69 - Type 2 diabetes mellitus with other specified complication Category: Medical Code(s): E11.9 - Type 2 diabetes mellitus without complications (3) Obesity (BMI 30-39.9) Current visit: No Status: Acute Category: Medical Code(s): E66.9 - Obesity, unspecified (4) Schizophrenia Current visit: No Status: Acute Qualifiers: Schizophrenia type: unspecified Qualified Code(s): F20.9 - Schizophrenia, unspecified Category: Medical Code(s): F20.9 - Schizophrenia, unspecified (5) Acute kidney injury Current visit: Yes Status: Acute Category: Medical Code(s): N17.9 - Acute kidney failure, unspecified (6) Severe sepsis Current visit: Yes Status: Acute Category: Medical Code(s): A41.9 - Sepsis, unspecified organism; R65.20 - Severe sepsis without septic shock
[2019-02-21 06:09] LABS: Anion Gap 15.2 mEq/L (5-15)
[2019-02-21 06:52] LABS: Calcium 7.4 mg/dL (8.5-10.1)
[2019-02-21 06:53] LABS: Basophils # 0.1 K/mm3 (0-0.2); Basophils % 0.6 % (0.1-2.0); Eosinophils # 0.4 K/mm3 (0.0-0.4); Eosinophils % 3.7 % (0.1-12.0); Hematocrit 36.2 % (37.0-47.0); Lymphocytes # 1.8 K/mm3 (0.7-4.5); Mean Corpuscular HGB Conc 30.3 g/dL (31.8-35.4); Mean Corpuscular Volume 92.3 fl (81-99); Monocytes # 0.6 K/mm3 (0.1-1.0); Monocytes % 5.1 % (1.7-9.3); Neutrophils # 8.4 K/mm3 (1.8-7.8); Neutrophils % 74.6 % (37.0-80.0); Platelet Count 192 K/mm3 (142-424); Red Blood Count 3.92 M/mm3 (4.20-5.40); White Blood Count 11.3 K/mm3 (4.8-10.8)
--- NOTE | 2019-02-21 07:21 | Pharmacy Consult Notes ---
[facility] Pharmacy VTE Monitoring - Patient Demographics Admission date: 02/20/19 Report Date: 02/21/19 Time: 07:21 Allergies/Adverse Reactions: Patient Allergies aripiprazole [From ABILIFY] Allergy (Mild, Verified 02/20/19 15:12) Unknown allergy reaction Penicillins [PENICILLINS] Allergy (Mild, Verified 02/20/19 15:12) Unknown allergy reaction codeine [CODEINE] Allergy (Unknown, Verified 02/20/19 15:12) Unknown allergy reaction paroxetine [PAROXETINE] Allergy (Unknown, Verified 02/20/19 15:12) Unknown allergy reaction PPD black rubber mix [PPD BLACK RUBBER MIX] Allergy (Unknown, Verified 02/20/19 15:12) Unknown allergy reaction tuberculin, purified protein deriva [From TUBERSOL] Allergy (Unknown, Verified 02/20/19 15:12) Unknown allergy reaction venom-honey bee Allergy (Unknown, Verified 02/20/19 15:12) Unknown allergy reaction venom-wasp Allergy (Unknown, Verified 02/20/19 15:12) Unknown allergy reaction venom-wasp protein Allergy (Verified 02/20/19 15:12) Unknown allergy reaction Height: 1.65 m Weight: 99.876 kg Patient Problems: Current Active Problems Abscess of skin or subcutaneous tissue (Acute) Severe sepsis (Acute) Acute kidney injury (Acute) Dehydration (Acute) Tachycardia (Acute) - VTE Risk Labs: VTE Related Lab Results Hgb 11.0 g/dL (12.2-16.2) L D 02/21/19 05:33 Hct 36.2 % (37.0-47.0) L 02/21/19 05:33 Plt Count 192 K/mm3 (142-424) 02/21/19 05:33 BUN 19 mg/dL (7-18) H D 02/21/19 05:33 Creatinine 1.69 mg/dL (0.55-1.02) H D 02/21/19 05:33 Estimated Creat Clear 59 mL/min (50-200) 02/21/19 05:33 Was VTE Risk Assessment Performed: Yes VTE Score: 4 VTE Risk Level: Low Risk Clinical Trial Participant: No - Prophylaxis VTE Prophylaxis Ordered?: Yes Types of VTE Prophylaxis: TEDS Knee High
--- NOTE | 2019-02-21 08:32 | Discharge Summary ---
General - General Admission date:: 02/20/19 Discharge date: 02/21/19 HPI HPI: 58-year-old female patient lying in bed resting quietly. Denies any concerns/needs at present. Reports her leg is feeling better. She does have 2 open areas on her right inner thigh one is healed, the other is approximately 1 cm x 0.5 cm it is open and is being currently packed. She will be discharged back to [facility] today, she is agreeable to this. this wf who has hx of vomiting over the last few days - she has hx of recent skin infection and is doing daily wd care - she was seen in the ed -t brought in today by adult daycare staff for c/o nausea and vomiting since Wednesday. Staff members report patient was hospitalized recently for I&D's of boils, and has been getting her wounds packed by outpatient staff. Staff reports patient is at her baseline mental status, and patient is very hard to understand, very flat affect. Staff reports they think she is weaker, and possibly dehydrated. No fevers they are aware of. Pt reports her "belly hurts. pt was admitted for ivf and continued abx Hospital Course Hospital Course: this wf who has hx of vomiting over the last few days - she has hx of recent skin infection and is doing daily wd care - she was seen in the ed -t brought in today by adult daycare staff for c/o nausea and vomiting since Wednesday. Staff members report patient was hospitalized recently for I&D's of boils, and has been getting her wounds packed by outpatient staff. Staff reports patient is at her baseline mental status, and patient is very hard to understand, very flat affect. Staff reports they think she is weaker, and possibly dehydrated. No fevers they are aware of. Pt reports her "belly hurts. pt was admitted for ivf and continued abx (Per Dr. Douglass) During her admission she has received IV vancomycin and IV cefepime. She will be discharged with Keflex and Bactrim for 5 days. UA was negative and blood cultures are pending. Objective Vital signs: Temp Pulse Resp BP Pulse Ox 98.0 F 89 19 142/69 H 99 02/21/19 08:00 02/21/19 08:00 02/21/19 08:00 02/21/19 08:00 02/21/19 08:00 no acute distress - *Routine HEENT Exam Head: Present: normocephalic, atraumatic Eye: Present: EOMI, PERRL, normal accommodation. Absent: conjunctival icterus, periorbital swelling - *Routine Neck Exam Present: supple, trachea midline. Absent: tracheal deviation - *Routine Respiratory Exam Present: wheezes. Absent: accessory muscle use - *Routine Cardiovascular Exam Present: murmur - *Routine Abdominal Exam Present: soft, normoactive bowel sounds. Absent: tenderness - *Routine Extremities Exam Present: edema, pulses intact. Absent: calf tenderness, Abbey's sign - Routine Back/Spine/Pelvis Exam Back/Spine: Present: full ROM, CVA tenderness - *Routine Skin Exam Present: wounds Comments: R inner thigh, 1cm X 0.5cm - *Routine Neurological Exam Present: alert, CN II-XII intact Results Labs on day of discharge: Labs from last 24 hours 02/21/19 02/21/19 02/21/19 05:33 05:33 05:31 WBC 11.3 H RBC 3.92 L Hgb 11.0 L D Hct 36.2 L MCV 92.3 MCH 28.0 MCHC 30.3 L RDW 14.0 Plt Count 192 MPV 10.0 Neut % (Auto) 74.6 Lymph % (Auto) 16.0 [place] % (Auto) 5.1 Eos % (Auto) 3.7 Baso % (Auto) 0.6 Neut # (Auto) 8.4 H Lymph # (Auto) 1.8 [place] # (Auto) 0.6 Eos # (Auto) 0.4 Baso # (Auto) 0.1 Sodium 140 Potassium 4.2 Chloride 105 Carbon Dioxide 24 Anion Gap 15.2 H BUN 19 H D Creatinine 1.69 H D Estimated Creat Clear 59 Estimated GFR 31 L Est GFR ( Amer) 38 L D Glucose 128 H D POC Glucose 134 H Lactate Calcium 7.4 L D Total Bilirubin AST ALT Alkaline Phosphatase Total Protein Albumin Globulin Albumin/Globulin Ratio Amylase Lipase Urine Color Urine Appearance Urine pH Ur Specific [place] Urine Protein Urine Glucose (UA) Urine Ketones Urine Blood Urine Nitrate Urine Bilirubin Urine Urobilinogen Ur Leukocyte Esterase Urine WBC Ur Squamous Epith Cells Urine Bacteria Hyaline Casts Coarse Granular Casts 02/20/19 02/20/19 02/20/19 20:30 16:16 15:45 WBC RBC Hgb Hct MCV MCH MCHC RDW Plt Count MPV Neut % (Auto) Lymph % (Auto) [place] % (Auto) Eos % (Auto) Baso % (Auto) Neut # (Auto) Lymph # (Auto) [place] # (Auto) Eos # (Auto) Baso # (Auto) Sodium Potassium Chloride Carbon Dioxide Anion Gap BUN Creatinine Estimated Creat Clear Estimated GFR Est GFR ( Amer) Glucose POC Glucose 181 H 97 Lactate 1.4 Calcium Total Bilirubin AST ALT Alkaline Phosphatase Total Protein Albumin Globulin Albumin/Globulin Ratio Amylase Lipase Urine Color Urine Appearance Urine pH Ur Specific [place] Urine Protein Urine Glucose (UA) Urine Ketones Urine Blood Urine Nitrate Urine Bilirubin Urine Urobilinogen Ur Leukocyte Esterase Urine WBC Ur Squamous Epith Cells Urine Bacteria Hyaline Casts Coarse Granular Casts 02/20/19 02/20/19 02/20/19 11:55 11:20 10:54 WBC RBC Hgb Hct MCV MCH MCHC RDW Plt Count MPV Neut % (Auto) Lymph % (Auto) [place] % (Auto) Eos % (Auto) Baso % (Auto) Neut # (Auto) Lymph # (Auto) [place] # (Auto) Eos # (Auto) Baso # (Auto) Sodium Potassium Chloride Carbon Dioxide Anion Gap BUN Creatinine Estimated Creat Clear Estimated GFR Est GFR ( Amer) Glucose POC Glucose Lactate 2.2 H Calcium Total Bilirubin AST ALT Alkaline Phosphatase Total Protein Albumin Globulin Albumin/Globulin Ratio Amylase Lipase 68 L Urine Color Yellow Urine Appearance Clear Urine pH 6.0 Ur Specific [place] 1.015 Urine Protein Negative Urine Glucose (UA) Negative Urine Ketones Negative Urine Blood Negative Urine Nitrate Negative Urine Bilirubin Negative Urine Urobilinogen 0.2 Ur Leukocyte Esterase Negative Urine WBC Occasional Ur Squamous Epith Cells Occasional Urine Bacteria Trace Hyaline Casts 3-5 Coarse Granular Casts 3-5 02/20/19 02/20/19 10:54 10:54 WBC 11.9 H RBC 4.46 Hgb 12.6 Hct 40.0 MCV 89.8 MCH 28.2 MCHC 31.4 L RDW 14.0 Plt Count 234 MPV 10.0 Neut % (Auto) 75.2 Lymph % (Auto) 15.7 [place] % (Auto) 6.2 Eos % (Auto) 2.3 Baso % (Auto) 0.6 Neut # (Auto) 9.0 H Lymph # (Auto) 1.9 [place] # (Auto) 0.7 Eos # (Auto) 0.3 Baso # (Auto) 0.1 Sodium 137 Potassium 4.1 Chloride 99 Carbon Dioxide 26 Anion Gap 16.1 H BUN 26 H Creatinine 2.33 H Estimated Creat Clear 40 Estimated GFR 22 L Est GFR ( Amer) 26 L Glucose 165 H POC Glucose Lactate Calcium 8.6 Total Bilirubin 0.3 AST 41 H ALT 38 Alkaline Phosphatase 132 H Total Protein 7.5 Albumin 3.5 Globulin 4.0 H Albumin/Globulin Ratio 0.9 L Amylase 25 Lipase Urine Color Urine Appearance Urine pH Ur Specific [place] Urine Protein Urine Glucose (UA) Urine Ketones Urine Blood Urine Nitrate Urine Bilirubin Urine Urobilinogen Ur Leukocyte Esterase Urine WBC Ur Squamous Epith Cells Urine Bacteria Hyaline Casts Coarse Granular Casts - Additional Comments Rounded with Dr. Douglass, all orders per Dr. Douglass Will discharge back to [facility] today Keflex 500 3 times daily x5 and Bactrim DS twice daily x5 PT eval DS: Diagnosis - Discharge Diagnosis (1) Abscess of skin or subcutaneous tissue Status: Acute (2) Diabetes mellitus Status: Acute (3) Obesity (BMI 30-39.9) Status: Acute (4) Schizophrenia Status: Acute (5) Acute kidney injury Status: Acute (6) Severe sepsis Status: Acute Discharge Plan - Patient Discharge Instructions ACTIVITY: Continue current activity DIET: continue same diet Patient Instructions: DI for Dehydration -- Adult, Acute Renal Failure, DI for Sepsis -- Adult - Follow up Plan Follow up with: Jerrod Douglass MD [Primary Care Provider] - 2 weeks Disposition: Home, Self-Shelter Medications: Home Medications Medication Instructions Recorded Confirmed Type atorvastatin 80 mg tablet 80 mg PO ONCE 09/08/17 02/20/19 History benztropine 1 mg tablet 1 mg PO BID 09/08/17 02/20/19 History buspirone 30 mg tablet 30 mg PO BID tab 09/08/17 02/20/19 History escitalopram 20 mg tablet 20 mg PO DAILY 09/08/17 02/20/19 History haloperidol 10 mg tablet 10 mg PO TID 09/08/17 02/20/19 History loperamide 2 mg capsule 2 mg PO Q4H 09/08/17 02/20/19 History pantoprazole 20 mg tablet,delayed 40 mg PO QHS 09/08/17 02/20/19 History release perphenazine 8 mg tablet 8 mg PO BID 09/08/17 02/20/19 History phenytoin sodium extended 100 mg 100 mg PO TID 09/08/17 02/20/19 History capsule potassium chloride ER 20 mEq 20 meq PO BID 09/08/17 02/20/19 History tablet,extended release(part/cryst) promethazine 25 mg tablet 25 mg PO Q6H PRN 09/08/17 02/20/19 History triamterene 75 1 tab PO BID tab 09/08/17 02/20/19 History mg-hydrochlorothiazide 50 mg tablet Loratadine [Claritin] 10 mg PO DAILY 02/08/19 02/20/19 History Oxybutynin Chloride [Oxybutynin 5 mg PO DAILY 02/08/19 02/20/19 History Chloride ER] lamoTRIgine [Lamictal Odt] 50 mg PO BID 02/08/19 02/20/19 History levETIRAcetam [Levetiracetam] 500 mg PO BID 02/08/19 02/20/19 History Ibuprofen [Ibuprofen 600mg 600 mg PO TID PRN #0 02/10/19 02/20/19 Rx Tablet] Metformin HCl [Metformin HCl ER] 500 mg PO BID 02/15/19 02/20/19 History Sulfamethoxazole/Trimethoprim 1 each PO BID 02/15/19 02/20/19 History [Bactrim DS tablet] glipiZIDE [Glipizide ER] 2.5 mg PO DAILY 02/15/19 02/20/19 History OLANZapine [Olanzapine] 20 mg PO HS 02/20/19 02/20/19 History levoFLOXacin [Levaquin 500mg 500 mg PO DAILY 02/20/19 02/20/19 History tab] Sulfamethoxazole/Trimethoprim 1 each PO BID 5 Days #10 tab 02/21/19 Rx [Bactrim DS tablet] cephALEXin [Cephalexin 500mg Tab] 500 mg PO TID 5 Days #15 tab 02/21/19 Rx Prescriptions/Medication Reconciliation: New cephALEXin [Cephalexin 500mg Tab] 500 mg PO TID 5 Days #15 tab Sulfamethoxazole/Trimethoprim [Bactrim DS tablet] 1 each PO BID 5 Days #10 tab No Action benztropine 1 mg tablet 1 mg PO BID phenytoin sodium extended 100 mg capsule 100 mg PO TID escitalopram 20 mg tablet 20 mg PO DAILY haloperidol 10 mg tablet 10 mg PO TID atorvastatin 80 mg tablet 80 mg PO ONCE loperamide 2 mg capsule 2 mg PO Q4H triamterene 75 mg-hydrochlorothiazide 50 mg tablet 1 tab PO BID tab pantoprazole 20 mg tablet,delayed release 40 mg PO QHS perphenazine 8 mg tablet 8 mg PO BID buspirone 30 mg tablet 30 mg PO BID tab potassium chloride ER 20 mEq tablet,extended release(part/cryst) 20 meq PO BID promethazine 25 mg tablet 25 mg PO Q6H PRN PRN Reason: Nausea Loratadine [Claritin] 10 mg PO DAILY levETIRAcetam [Levetiracetam] 500 mg PO BID lamoTRIgine [Lamictal Odt] 50 mg PO BID Sulfamethoxazole/Trimethoprim [Bactrim DS tablet] 1 each PO BID Metformin HCl [Metformin HCl ER] 500 mg PO BID OLANZapine [Olanzapine] 20 mg PO HS Oxybutynin Chloride [Oxybutynin Chloride ER] 5 mg PO DAILY Ibuprofen [Ibuprofen 600mg Tablet] 600 mg PO TID PRN #0 PRN Reason: Breakthru Mild Pain glipiZIDE [Glipizide ER] 2.5 mg PO DAILY levoFLOXacin [Levaquin 500mg tab] 500 mg PO DAILY - Problem Reconciliation Problems Reviewed?: Yes
== END 2019-02-21 14:27 | disposition home or self-care (01) ==
LOC: ER 10:40 → 2ND 14:05 → INTOOBSV 14:45 → 2ND 14:45
PROVIDERS: ADMIT Emergency Medicine; ATTEND Emergency Medicine
CPT/HCPCS: 36415; 71010; 71045; 74176; 80048; 80053; 81001; 82150; 82962; 83605; 83690; 85025; 87040; 96365; 96366; 96367; 96375; 97162; 99285; G0378; G0463; J2405; J3370

== ENCOUNTER 2019-02-20 10:40 | Outpatient (CLI) | payer MEDICARE, MEDICAID, SELFPAY | END 2019-02-20 11:20 | disposition home or self-care (01) | LOC: INF 12:21 | PROVIDERS: Visit Provider Emergency Medicine | DX: Z48.01 Encounter for change or removal of surgical wound dressing (principal) | CPT/HCPCS: G0463 ==

== ENCOUNTER 2020-07-29 09:23 | Emergency (ER) | payer MEDICARE, MEDICAID, SELFPAY ==
[2020-07-29 09:24] VITALS: BP 123/70; PULSE 88; RESP 18; TEMP 36.7; O2SAT 97; BMI 36.2
--- NOTE | 2020-07-29 09:31 | XR_ITS ---
PROCEDURE: XR KNEE RT 3V CLINICAL INDICATION: fall, pain COMPARISON: No exams were available for comparison FINDINGS: No fracture or dislocation. No lytic or blastic change. There is normal mineralization. Mild osteoarthritic changes are present involving all 3 compartments Other findings:None. IMPRESSION: No acute findings. Dictated by: Roman Riggs MD 07/29/2020 11:58 Roman Riggs MD in [place] 07/29/2020 11:58
--- NOTE | 2020-07-29 09:31 | XR_ITS ---
PROCEDURE: XR KNEE LT 3V CLINICAL INDICATION: fall, pain COMPARISON: CR XR KNEE RT 3V from 07/29/2020 FINDINGS: No fracture or dislocation. No lytic or blastic change. There is normal mineralization. Minimal osteoarthritic changes are present involving the medial compartment and patellofemoral joint. Other findings:None. IMPRESSION: No acute findings. Dictated by: Roman Riggs MD 07/29/2020 11:57 Roman Riggs MD in [place] 07/29/2020 11:57
--- NOTE | 2020-07-29 09:33 | HMH.EDGENADL ---
ED Disposition Clinical Impression: Fall Qualifiers: Encounter type: initial encounter Qualified Code(s): W19.XXXA - Unspecified fall, initial encounter Knee pain Qualifiers: Chronicity: acute Laterality: bilateral Qualified Code(s): M25.561 - Pain in right knee Disposition: Home, Self-Care Condition on Discharge: Good Referrals: Jerrod Douglass MD [Primary Care Provider] - 3 days Time of Disposition: 11:20 - Critical Care Critical Care Time: No Attestation: On , the high probability of a clinically significant, sudden or life threatening deterioration of the following system(s) required my full and direct attention, intervention and personal management. The time I documented below is in addition to time spent performing reported procedures but includes the following listed in this critical care notation. Medical Decision Making - Medical Records Medical records reviewed: Yes: I reviewed the patient's medical records. - Otis Inquiry Pt receiving controlled substance: No Vital Signs: 07/29/20 09:24 07/29/20 09:41 07/29/20 10:10 Temperature 98.1 F Temperature Source Oral Pulse Rate [Right Radial] 88 90 74 Respiratory Rate 18 18 18 Blood Pressure [Right Arm] 123/70 122/78 113/67 Blood Pressure Mean [Right Arm] 87 92 82 Blood Pressure Source [Right Arm] Automatic Cuff Automatic Cuff Blood Pressure Position [Right Arm] Sitting 02 Sat by Pulse Oximetry 97 96 97 Oxygen Delivery Method Room Air Room Air Orders (Tests/Meds): ORDERS Category Date Time Status XR knee LT 3V Stat Exams 07/29/20 09:31 Taken XR knee RT 3V Stat Exams 07/29/20 09:31 Taken - Radiology Data #1 Image(s): Knee Image Reviewed: Yes I reviewed the patient's radiology results Preliminary Findings: Normal/NAD - CT Data CT Scan: Head Time Received: 11:[address] Reviewed: Yes: I have reviewed the patient's CT results, I have viewed the radiologist's interpretation Preliminary Findings: Normal/NAD Medical Decision Narrative: 59yo F evaluated after a fall from standing, down 1 step. Patient is in no acute distress on initial evaluation. She ambulates around the emergency department without difficulty. Complains of dizziness and therefore CT of the head is obtained. She also complains of bilateral knee pain but is unwilling to take off her blue jeans and put on a gown for better exam. Palpation of the knee joints through the patient's clothing revealed only mild tenderness to palpation over the patella. No difficulty with what range of motion was able to be tested. Patient's imaging is unremarkable. At this point she is appropriate and stable for discharge home. General Adult HPI - General Chief complaint: PAIN Stated complaint: lm knee pain Time Seen by Provider: 07/29/20 09:33 Mode of Arrival: EMS Limitations: No Limitations Description of Symptoms (Recalled from ER Triage Doc. by RN): Pt c/o lm knee pain, pt reports she missed her step and fell - History of Present Illness HPI narrative: 59yo F from [place] [facility] brought to the emergency department via EMS after she missed a step and fell. She complains of bilateral knee pain. EMS reports she was ambulatory at the scene. Patient also complains of a headache and states she hit her head on the floor. She denies LOC, change in vision, nausea or vomiting. - Related Data Home Medications Medication Instructions Recorded Confirmed atorvastatin 80 mg tablet 80 mg PO ONCE 09/08/17 03/01/20 buspirone 30 mg tablet 30 mg PO BID tab 09/08/17 03/01/20 escitalopram oxalate 20 mg tablet 20 mg PO DAILY 09/08/17 03/01/20 haloperidol 10 mg tablet 10 mg PO TID 09/08/17 03/01/20 loperamide 2 mg capsule 2 mg PO Q4H 09/08/17 03/01/20 pantoprazole 20 mg tablet,delayed 40 mg PO QHS 09/08/17 03/01/20 release perphenazine 8 mg tablet 8 mg PO BID 09/08/17 03/01/20 phenytoin sodium extended 100 mg 100 mg PO TID 09/08/17 03/01/20 capsule potassium chloride 20 mEq
--- NOTE | 2020-07-29 09:34 | CT_ITS ---
PROCEDURE: CT HEAD/BRAIN WO CON CLINICAL INDICATION: Fall Head injury with headache/pain, contusion, abrasion or hematoma Dizziness COMPARISON: CT HDWO CT HEAD W/O CONTRAST from 01/16/2017 TECHNIQUE: Axial images obtained. All CT scans at the facility use one or more dose reduction, viz: automated exposure control, ma/kV adjustment per patient size (including targeted exams where dose is matched to indication, i.e. head), or iterative reconstruction technique. FINDINGS: No midline shift, mass effect, intracranial hemorrhage, hydrocephalus, or extra-axial fluid collection is evident. The calvarium has an unremarkable appearance. There is a small amount fluid in the mastoid sinus on the left. There is moderate rightward nasal septal deviation. Small retention cyst is present in the left maxillary sinus superiorly. No sinus air-fluid level. IMPRESSION: No acute intracranial finding Dictated by: Roman Riggs MD 07/29/2020 10:38 Roman Riggs MD in [facility] 07/29/2020 10:38
[2020-07-29 09:41] VITALS: BP 122/78; PULSE 90; RESP 18; O2SAT 96
[2020-07-29 10:10] VITALS: BP 113/67; PULSE 74; RESP 18; O2SAT 97
[2020-07-29 11:00] VITALS: BP 121/78; PULSE 84; RESP 18; O2SAT 98
--- NOTE | 2020-07-29 11:21 | PC.NURSE ---
notified [facility] staff pt is ready for d/c
[2020-07-29 11:30] VITALS: PULSE 79; RESP 17; O2SAT 97
[2020-07-29 11:50] VITALS: BP 117/78; PULSE 83; RESP 20; TEMP 36.8; O2SAT 97
== END 2020-07-29 11:52 | disposition home or self-care (01) ==
PROVIDERS: Emergency Provider Family Medicine; PCP Emergency Medicine
DX: S00.83XA Contusion of other part of head, initial encounter (principal); M25.561 Pain in right knee; M25.562 Pain in left knee; W10.9XXA Fall (on) (from) unspecified stairs and steps, initial encounter; Y92.199 Unspecified place in other specified residential institution as the place of occurrence of the external cause; F41.9 Anxiety disorder, unspecified; E11.9 Type 2 diabetes mellitus without complications; J44.9 Chronic obstructive pulmonary disease, unspecified; K21.9 Gastro-esophageal reflux disease without esophagitis; I10 Essential (primary) hypertension; E78.5 Hyperlipidemia, unspecified; G40.009 Localization-related (focal) (partial) idiopathic epilepsy and epileptic syndromes with seizures of localized onset, not intractable, without status epilepticus; F17.210 Nicotine dependence, cigarettes, uncomplicated; Z88.0 Allergy status to penicillin; Z88.8 Allergy status to other drugs, medicaments and biological substances
CPT/HCPCS: 70450; 73562; 99283

== ENCOUNTER → 2021-01-08 14:36 | Outpatient (CLI) | payer MEDICARE, MEDICAID, SELFPAY ==
--- NOTE | 2021-01-08 14:38 | US_ITS ---
PROCEDURE: US KIDNEY CLINICAL INDICATION: CKD STAGE 3 COMPARISON: No exams were available for comparison FINDINGS: The right kidney is [id number]. No hydronephrosis, cortical thinning, or renal mass or perinephric fluid collection is evident. Unremarkable echogenicity The left kidney is [id number]. No hydronephrosis, cortical thinning, or renal mass or perinephric fluid collection is evident. Unremarkable echogenicity There is mild splenomegaly at 14 cm IMPRESSION: Unremarkable bilateral renal ultrasound Mild splenomegaly Dictated by: Roman Riggs MD 01/09/2021 10:47 Roman Riggs MD in [facility] 01/09/2021 10:47
== END ==
PROVIDERS: PCP Emergency Medicine; Visit Provider Internal Medicine Nephrology
DX: N18.30 Chronic kidney disease, stage 3 unspecified (principal)
CPT/HCPCS: 76770

== ENCOUNTER → 2021-01-10 12:17 | Outpatient (CLI) | payer MEDICARE, MEDICAID, SELFPAY ==
[2021-01-10 13:24] LABS: Basophils # 0.1 K/mm3 (0-0.2); Basophils % 0.9 % (0.1-2.0); Creatinine,Urine Random 54 mg/dL (Not Estab.); Eosinophils # 0.3 K/mm3 (0.0-0.4); Eosinophils % 2.6 % (0.1-12.0); Hematocrit 37.6 % (37.0-47.0); Hemoglobin 12.2 g/dL (12.2-16.2); Lymphocytes # 2.7 K/mm3 (0.7-4.5); Lymphocytes % 21.5 % (10-50); Mean Corpuscular HGB Conc 32.5 g/dL (31.8-35.4); Mean Corpuscular Hemoglobin 27.2 pg (27.0-31.2); Mean Corpuscular Volume 83.6 fl (81-99); Mean Platelet Volume 9.8 fl (7.4-10.4); Monocytes # 0.6 K/mm3 (0.1-1.0); Monocytes % 4.7 % (1.7-9.3); Neutrophils % 70.3 % (37.0-80.0); Platelet Count 242 K/mm3 (142-424); Red Blood Count 4.49 M/mm3 (4.20-5.40); Red Cell Distribution Width 15.1 % (11.5-17.5); White Blood Count 12.7 K/mm3 (4.8-10.8)
[2021-01-10 13:47] LABS: Chloride 93 mmol/L (98-107); Potassium 4.8 mmoL/L (3.5-5.1); Sodium 132 mmol/L (136-145)
[2021-01-10 13:48] LABS: Albumin Level 4.2 g/dl (3.5-5.0)
[2021-01-10 13:50] LABS: Anion Gap 19.8 mEq/L (5-15); Blood Urea Nitrogen 16 mg/dl (7-17); Carbon Dioxide 24 mmol/L (22.0-30.0); Estimated Glomerular Filt Rate 57 ml/min (>60); GFR (African American) 69 ML/MIN (>60)
[2021-01-10 13:51] LABS: Phosphorous 4.5 mg/dl (2.5-4.5)
[2021-01-10 14:06] LABS: Glucose 607 mg/dl (74-100)
== END ==
PROVIDERS: Visit Provider Emergency Medicine
DX: N28.9 Disorder of kidney and ureter, unspecified (principal)
CPT/HCPCS: 36415; 80069; 82043; 82570; 85025

== ENCOUNTER → 2021-01-27 13:25 | Outpatient (POV) | payer MEDICARE, MEDICAID, SELFPAY | PROVIDERS: Visit Provider Internal Medicine Nephrology | DX: Z00.00 Encounter for general adult medical examination without abnormal findings (principal) ==

== ENCOUNTER 2021-05-06 16:34 | Emergency (ER) | payer MEDICARE, MEDICAID, SELFPAY ==
[2021-05-06 16:35] VITALS: BP 144/93; PULSE 74; RESP 18; TEMP 36.6; O2SAT 97; BMI 32.8
--- NOTE | 2021-05-06 16:44 | XR_ITS ---
PROCEDURE INFORMATION: Exam: XR Bilateral Hips Exam date and time: 05/06/2021 4:44 PM Age: 60 years old Clinical indication: Injury or trauma; Fall; Blunt trauma (contusions or hematomas); Bilateral; Pelvic region; Injury date: 05/06/21; Additional info: Fall; Bilateral hip pain TECHNIQUE: Imaging protocol: XR bilateral hips. Views: 2 views of hips with pelvis when performed. COMPARISON: CT ABDOMEN PELVIS WO CON 02/20/2019 11:24 AM FINDINGS: Bones/joints: Bones appear intact and normally aligned with normal mineralization. Mild bilateral superior hip joint space narrowing suggesting underlying chondromalacia. Minimal spurring of the inferomedial left femur head.There are no lytic skeletal lesions seen. Mild sacroiliitis. Lower lumbar degenerative changes with mild facet arthropathy. Soft tissues: No acute findings in the periarticular soft tissues. Intraperitoneal space: Surgical clip noted in the pelvis. Vasculature: Tiny rounded calcifications in the lower pelvis are probably phleboliths, less likely urinary tract stones. IMPRESSION: 1. No acute fracture or dislocation. 2. Very mild degenerative changes, as above.
--- NOTE | 2021-05-06 16:45 | HMH.EDFALL ---
ED Disposition Clinical Impression: Arthritis, Hip pain Disposition: Home, Self-Care Condition on Discharge: Good Instructions: DI for Hip Pain Additional Instructions: return for worse or any concerns Referrals: Jerrod Douglass MD [Primary Care Provider] - - Critical Care Critical Care Time: No Attestation: On , the high probability of a clinically significant, sudden or life threatening deterioration of the following system(s) required my full and direct attention, intervention and personal management. The time I documented below is in addition to time spent performing reported procedures but includes the following listed in this critical care notation. Medical Decision Making - Otis Inquiry Pt receiving controlled substance: No Vital Signs: 05/06/21 16:35 Temperature 97.9 F Temperature Source Oral Pulse Rate [Left Radial] 74 Respiratory Rate 18 Blood Pressure [Right Arm] 144/93 H Blood Pressure Mean [Right Arm] 110 Blood Pressure Source [Right Arm] Automatic Cuff Blood Pressure Position [Right Arm] Sitting 02 Sat by Pulse Oximetry 97 Oxygen Delivery Method Room Air Orders (Tests/Meds): ED MEDICATIONS Generic Name Dose Route Start Last Admin Trade Name Freq PRN Reason Stop Dose Admin Ketorolac Tromethamine 10 mg 05/06/21 17:40 Ketorolac 10mg Tablet PO 05/06/21 17:41 ONCE ONE Discontinued Medications Generic Name Dose Route Start Last Admin Trade Name Freq PRN Reason Stop Dose Admin Methylprednisolone Sodium Succinate 125 mg 05/06/21 17:39 Methylprednisolone Sod Succ 125mg Vial IM 05/06/21 17:40 ONCE ONE Fall HPI - General Chief Complaint: Fall Stated Complaint: fall/pain Time Seen by Provider: 05/06/21 16:50 Source of Information: Patient, EMS Limitations: No Limitations - History of Present Illness HPI Narrative: pt/ems report trip and fall 1 month ago with ongoing hip pain, sent for re-eval Onset (ago): month(s) Fall from: standing Location of injury: other (hips) Severity: moderate Quality: dull Associated symptoms (after fall): denies - Related Data Home Medications Medication Instructions Recorded Confirmed atorvastatin 80 mg tablet 80 mg PO ONCE 09/08/17 03/01/20 buspirone 30 mg tablet 30 mg PO BID tab 09/08/17 03/01/20 escitalopram oxalate 20 mg tablet 20 mg PO DAILY 09/08/17 03/01/20 haloperidol 10 mg tablet 10 mg PO TID 09/08/17 03/01/20 loperamide 2 mg capsule 2 mg PO Q4H 09/08/17 03/01/20 pantoprazole 20 mg tablet,delayed 40 mg PO QHS 09/08/17 03/01/20 release perphenazine 8 mg tablet 8 mg PO BID 09/08/17 03/01/20 phenytoin sodium extended 100 mg 100 mg PO TID 09/08/17 03/01/20 capsule potassium chloride 20 mEq 20 meq PO BID 09/08/17 03/01/20 tablet,extended release(part/cryst) promethazine 25 mg tablet 25 mg PO Q6H PRN 09/08/17 03/01/20 triamterene 75 1 tab PO BID tab 09/08/17 03/01/20 mg-hydrochlorothiazide 50 mg tablet Loratadine [Claritin] 10 mg PO DAILY 02/08/19 03/01/20 Oxybutynin Chloride [Oxybutynin 5 mg PO DAILY 02/08/19 03/01/20 Chloride ER] lamoTRIgine [Lamictal Odt] 50 mg PO BID 02/08/19 03/01/20 levETIRAcetam [Levetiracetam] 500 mg PO BID 02/08/19 03/01/20 OLANZapine [Olanzapine] 20 mg PO HS 02/20/19 03/01/20 Previous Rx's Medication Instructions Recorded Ibuprofen [Ibuprofen 600mg 600 mg PO TID PRN #0 02/10/19 Tablet] hydrocodone 5 mg-acetaminophen 325 See Rx Instructions PO Q6H PRN #30 08/27/ mg tablet tab glipizide 5 mg tablet, extended 5 mg PO DAILY #30 tab 01/10/21 release 24 hr metformin 1,000 mg tablet 1,000 mg PO DAILY #30 tab 01/10/21 metformin 500 mg tablet 500 mg PO DAILY #30 tab 01/10/21 Allergies Allergy/AdvReac Type Severity Reaction Status Date / Time aripiprazole [From [facility]] Allergy Mild Unknown Verified 03/01/20 10:28 allergy reaction Penicillins [PENICILLINS] Allergy Mild Unknown Verified 03/01/20 10:28 allergy reaction co
--- NOTE | 2021-05-06 17:04 | PC.NURSE ---
BACK FROM RADIOLOGY
--- NOTE | 2021-05-06 17:47 | PC.NURSE ---
CALLED [facility] WILL BE HERE TO PICK HER UP IN APPROX 20 MIN
[2021-05-06 18:18] VITALS: BP 151/95; PULSE 74; RESP 18; TEMP 36.6; O2SAT 99
== END 2021-05-06 18:20 | disposition home or self-care (01) ==
PROVIDERS: Emergency Provider Emergency Medicine; PCP Emergency Medicine
DX: M25.551 Pain in right hip (principal); W01.0XXA Fall on same level from slipping, tripping and stumbling without subsequent striking against object, initial encounter; Y92.019 Unspecified place in single-family (private) house as the place of occurrence of the external cause; I10 Essential (primary) hypertension; K21.9 Gastro-esophageal reflux disease without esophagitis; E78.5 Hyperlipidemia, unspecified; J44.9 Chronic obstructive pulmonary disease, unspecified; E11.9 Type 2 diabetes mellitus without complications; F41.9 Anxiety disorder, unspecified; F17.210 Nicotine dependence, cigarettes, uncomplicated; Z79.899 Other long term (current) drug therapy
CPT/HCPCS: 73521; 96372; 99282

== ENCOUNTER 2021-05-15 18:14 | Emergency (ER) | payer MEDICARE, MEDICAID, SELFPAY ==
[2021-05-15 18:14] VITALS: BP 145/62; PULSE 87; RESP 16; TEMP 36.7; O2SAT 98; BMI 38.2
--- NOTE | 2021-05-15 18:27 | XR_ITS ---
PROCEDURE INFORMATION: Exam: XR Pelvis Exam date and time: 05/15/2021 6:27 PM Age: 60 years old Clinical indication: Injury or trauma; Fall; Blunt trauma (contusions or hematomas); Bilateral; Hip TECHNIQUE: Imaging protocol: XR pelvis. Views: 1 or 2 view. COMPARISON: CR XR HIP BI W PEL1V 05/06/2021 4:49 PM FINDINGS: Bones/joints: Normal. Soft tissues: Unremarkable. IMPRESSION: No acute findings.
--- NOTE | 2021-05-15 20:05 | HMH.EDFALL ---
ED Disposition Clinical Impression: Obesity (BMI 30-39.9) Contusion, hip Qualifiers: Encounter type: initial encounter Laterality: unspecified laterality Qualified Code(s): S70.00XA - Contusion of unspecified hip, initial encounter Fall Qualifiers: Encounter type: initial encounter Qualified Code(s): W19.XXXA - Unspecified fall, initial encounter UTI (urinary tract infection) Qualifiers: Urinary tract infection type: site unspecified Hematuria presence: without hematuria Qualified Code(s): N39.0 - Urinary tract infection, site not specified Disposition: Home, Self-Care Condition on Discharge: Good Instructions: How to Prevent Falls Additional Instructions: use meds and see pcp for follow up Prescriptions: cephALEXin [cephALEXin 500mg capsule*] 500 mg PO TID #30 cap Prescription Printed levoFLOXacin [Levaquin 500mg tab] 500 mg PO DAILY #7 tab Prescription Printed Referrals: Jerrod Douglass MD [Primary Care Provider] - - Critical Care Critical Care Time: No Attestation: On 05/15/21, the high probability of a clinically significant, sudden or life threatening deterioration of the following system(s) required my full and direct attention, intervention and personal management. The time I documented below is in addition to time spent performing reported procedures but includes the following listed in this critical care notation. Medical Decision Making - Medical Records Medical records reviewed: Yes: I reviewed the patient's medical records. - Otis Inquiry Pt receiving controlled substance: No Vital Signs: 05/15/21 18:14 05/15/21 20:40 Temperature 98.1 F Temperature Source Oral Pulse Rate 78 Pulse Rate [Right] 87 Respiratory Rate 16 Blood Pressure 138/91 H Blood Pressure [Right Arm] 145/62 H Blood Pressure Mean [Right Arm] 89 Blood Pressure Source [Right Arm] Automatic Cuff 02 Sat by Pulse Oximetry 98 98 Oxygen Delivery Method Room Air Room Air - Lab Data Lab results reviewed: Yes: I reviewed the patient's lab results. Lab Results 05/15/21 20:23: Urine Color Yellow, Urine Appearance Clear, Urine pH 6.0, Ur Specific [place] 1.010, Urine Protein Negative, Urine Glucose (UA) Negative, Urine Ketones Negative, Urine Blood Trace-i, Urine Nitrate Negative, Urine Bilirubin Negative, Urine Urobilinogen 0.2, Ur Leukocyte Esterase 1+ A 05/15/21 20:41: WBC 19.2 H, RBC 4.52, Hgb 12.8, Hct 39.1, MCV 86.6, MCH 28.4, MCHC 32.8, RDW 14.8, Plt Count 327, MPV 8.9, Neut % (Auto) 75.3, Lymph % (Auto) 18.3, Burke % (Auto) 4.1, Eos % (Auto) 1.7, Baso % (Auto) 0.6, Neut # (Auto) 14.4 H, Lymph # (Auto) 3.5, Burke # (Auto) 0.8, Eos # (Auto) 0.3, Baso # (Auto) 0.1 05/15/21 20:41: Sodium 139, Potassium 4.0, Chloride 99 Result diagrams: 05/15/21 20:41 05/15/21 20:41 Orders (Tests/Meds): ORDERS Category Date Time Status XR chest 2V Stat Exams 05/15/21 20:06 Taken BMP [Basic Metabolic Panel] Stat Lab 05/15/21 20:41 Results CBC [Complete Blood Count Auto Diff] Stat Lab 05/15/21 20:41 Results UA [Urinalysis and Microscopic] Stat Lab 05/15/21 20:23 Results Urine Culture Stat Micro 05/15/21 20:23 Received - Radiology Data #1 Image(s): Chest, Pelvis, Hip Image Reviewed: Yes I have reviewed radiologist's interpretation Preliminary Findings: No Fracture Seen Medical Decision Narrative: fall at [facility] and has hip pain - stable xray and exam and stable labs with possible urine infection Fall HPI - General Chief Complaint: Fall Stated Complaint: fall Time Seen by Provider: 05/15/21 20:05 Mode of Arrival: EMS Source of Information: Patient, EMS, Medical Record Limitations: No Limitations Description of Symptoms (Recalled from ER Triage Doc. by RN): pt advises she fell around 6 and now has bilateral hip pain. Denies pain anywhere else. - History of Present Illness HPI Narrative: fell at [facility] with bilat hip pain this afternoon - trip type injury MD complaint: fall
--- NOTE | 2021-05-15 20:06 | XR_ITS ---
PROCEDURE INFORMATION: Exam: XR Chest Exam date and time: 05/15/2021 8:06 PM Age: 60 years old Clinical indication: Other: Fall; Patient HX: Limited HX TECHNIQUE: Imaging protocol: XR of the chest. Views: 2 views. COMPARISON: CR XR CHEST 2V 07/16/2019 2:05 AM FINDINGS: Lungs: Minimal left basilar atelectasis or scarring. Pleural spaces: Unremarkable. No pleural effusion. No pneumothorax. Heart/Mediastinum: Normal. Bones/joints: Multilevel thoracic spine degenerative disc space narrowing and osteophyte formation. Organs: Cholecystectomy clips within the right upper abdomen. IMPRESSION: No acute cardiopulmonary abnormality.
--- NOTE | 2021-05-15 20:06 | XR_ITS ---
PROCEDURE INFORMATION: Exam: XR Right Hip Exam date and time: 05/15/2021 8:06 PM Age: 60 years old Clinical indication: Hip pain; Right hip; Patient HX: Pelvis image already taken under prior pelvis exam; Additional info: Fall TECHNIQUE: Imaging protocol: XR Right hip. Views: 2 or 3 views hip with pelvis when performed. COMPARISON: CR XR PELVIS 1-2V 05/15/2021 6:37 PM FINDINGS: Bones/joints: Normal. Soft tissues: Unremarkable. IMPRESSION: No acute findings.
--- NOTE | 2021-05-15 20:06 | XR_ITS ---
PROCEDURE INFORMATION: Exam: XR Left Hip Exam date and time: 05/15/2021 8:06 PM Age: 60 years old Clinical indication: Hip pain; Left hip; Additional info: Fall TECHNIQUE: Imaging protocol: XR Left hip. Views: 2 or 3 views hip with pelvis when performed. COMPARISON: CR XR PELVIS 1-2V 05/15/2021 6:37 PM FINDINGS: Bones/joints: No acute fracture or dislocation. Soft tissues: Unremarkable. Vasculature: Phleboliths within the pelvis. IMPRESSION: No acute fracture or dislocation.
[2021-05-15 20:35] LABS: Microscopic, Urine URINE MICROSCOPIC (MICROSCOPIC)
[2021-05-15 20:40] VITALS: BP 138/91; PULSE 78; O2SAT 98
[2021-05-15 20:51] LABS: Appearance,Urine CLEAR (Clear); Bilirubin,Urine Negative (Negative); Blood, Urine TRACE-I (Negative); Color,Urine YELLOW (Yellow); Glucose,Urine (UA) Negative (Negative); Ketones,Urine Negative (Negative); Leukocyte Esterase,Urine 1+ (Negative); Nitrate,Urine Negative (Negative); Protein,Urine Negative (Negative); Urobilinogen,Urine 0.2 EU/dl (0.2)
[2021-05-15 20:54] LABS: Basophils # 0.1 K/mm3 (0-0.2); Basophils % 0.6 % (0.1-2.0); Eosinophils # 0.3 K/mm3 (0.0-0.4); Eosinophils % 1.7 % (0.1-12.0); Hematocrit 39.1 % (37.0-47.0); Hemoglobin 12.8 g/dL (12.2-16.2); Lymphocytes # 3.5 K/mm3 (0.7-4.5); Lymphocytes % 18.3 % (10-50); Mean Corpuscular HGB Conc 32.8 g/dL (31.8-35.4); Mean Corpuscular Hemoglobin 28.4 pg (27.0-31.2); Mean Corpuscular Volume 86.6 fl (81-99); Mean Platelet Volume 8.9 fl (7.4-10.4); Monocytes # 0.8 K/mm3 (0.1-1.0); Monocytes % 4.1 % (1.7-9.3); Neutrophils # 14.4 K/mm3 (1.8-7.8); Neutrophils % 75.3 % (37.0-80.0); Platelet Count 327 K/mm3 (142-424); Red Blood Count 4.52 M/mm3 (4.20-5.40); Red Cell Distribution Width 14.8 % (11.5-17.5); White Blood Count 19.2 K/mm3 (4.8-10.8)
[2021-05-15 20:59] LABS: MANUAL DIFFERENTIAL MANUAL DIFFERENTIAL (MANUAL DIFF)
[2021-05-15 21:00] LABS: Chloride 99 mmol/L (98-107); Sodium 139 mmol/L (136-145)
[2021-05-15 21:03] LABS: Blood Urea Nitrogen 14 mg/dl (7-17); Calcium 9.2 mg/dl (8.4-10.2); Carbon Dioxide 29 mmol/L (22.0-30.0); Creatinine Clearance Estimated 112 mL/min (50-200); Estimated Glomerular Filt Rate 64 ml/min (>60); GFR (African American) 78 ML/MIN (>60); Glucose 157 mg/dl (74-100)
[2021-05-15 21:11] LABS: Bacteria,Urine 3+ /lpf; RBC,Urine Occasional #/hpf (0-3)
[2021-05-15 21:16] VITALS: BP 144/90; PULSE 88; RESP 16; TEMP 37.2; O2SAT 98
[2021-05-15 22:22] LABS: Eosinophils % 3 % (0-3); Lymphocytes % 10 % (10-50); Monocytes % 8 % (2-9); Neutrophils % 79 % (42-76); Platelet Estimate P; Total Cells Counted 100
[2021-05-15 22:23] LABS: Anisocytosis 1+; Hypochromasia 1+
== END 2021-05-15 21:20 | disposition home or self-care (01) ==
PROVIDERS: Emergency Provider Emergency Medicine; PCP Emergency Medicine
DX: S70.01XA Contusion of right hip, initial encounter (principal); S70.02XA Contusion of left hip, initial encounter; N30.00 Acute cystitis without hematuria; W01.0XXA Fall on same level from slipping, tripping and stumbling without subsequent striking against object, initial encounter; Y92.199 Unspecified place in other specified residential institution as the place of occurrence of the external cause; E78.5 Hyperlipidemia, unspecified; I10 Essential (primary) hypertension; K21.9 Gastro-esophageal reflux disease without esophagitis; G40.909 Epilepsy, unspecified, not intractable, without status epilepticus; J44.9 Chronic obstructive pulmonary disease, unspecified; F41.9 Anxiety disorder, unspecified; F17.210 Nicotine dependence, cigarettes, uncomplicated; Z79.899 Other long term (current) drug therapy
CPT/HCPCS: 71046; 72170; 73502; 80048; 81001; 85007; 85025; 87086; 87088; 87186; 99284

== ENCOUNTER 2022-10-24 18:43 | Emergency (ER) | payer MEDICARE, MEDICAID, SELFPAY ==
[2022-10-24 18:44] VITALS: BP 150/87; PULSE 74; RESP 16; TEMP 36.4; O2SAT 96; BMI 31.6
--- NOTE | 2022-10-24 18:49 | HMH.EDGENADL ---
Discharge Plan Disposition Patient Disposition: Home, Self-Care Prescriptions Prescriptions: No Action buspirone 30 mg tablet 30 mg PO BID phenytoin sodium extended [Dilantin Extended] 100 mg capsule 100 mg PO TID escitalopram oxalate 20 mg tablet 20 mg PO DAILY haloperidol 10 mg tablet 10 mg PO TID potassium chloride [Klor-Con M20] 20 mEq tablet,ER particles/crystals 20 meq PO BID atorvastatin [Lipitor] 80 mg tablet 80 mg PO ONCE loperamide 2 mg capsule 2 mg PO Q4H triamterene-hydrochlorothiazid [Maxzide] 75-50 mg tablet 1 tab PO BID promethazine 25 mg tablet 25 mg PO Q6H PRN (Reason: Nausea) pantoprazole [Protonix] 20 mg tablet,delayed release (DR/EC) 40 mg PO QHS perphenazine 8 mg tablet 8 mg PO BID hydrocodone-acetaminophen [Notus] 5-325 mg tablet See Rx Instructions PO Q6H PRN (Reason: pain) Qty: 30 0RF Rx Instructions: 1 or 2 tablets PO every 6 hours PRN gabapentin 100 mg capsule 100 mg PO TID Qty: 90 5RF olanzapine 20 MG tablet 20 mg PO HS metformin 500 MG tablet 500 mg PO DAILY Rx Instructions: Take 1 tablet in the PM glipizide 5 MG tablet extended release 24hr 5 mg PO DAILY metformin 1,000 MG tablet 1,000 mg PO DAILY Rx Instructions: Take 1,000mg in the AM levofloxacin 500 MG tablet 500 mg PO DAILY Qty: 7 0RF cephalexin 500 MG capsule 500 mg PO TID Qty: 30 0RF levetiracetam 500 MG tablet 500 mg PO BID oxybutynin chloride 5 MG tablet extended release 24hr 5 mg PO DAILY lamotrigine 50 MG tablet,disintegrating 50 mg PO BID loratadine 10 MG capsule 10 mg PO DAILY ibuprofen 600 mg tablet 600 mg PO TID PRN (Reason: Breakthru Mild Pain) Qty: 0 0RF Activity Restrictions/Add. Instructions Additional Instructions/Restrictions: Your x-ray did not demonstrate any displaced sacrococcyx fractures, please use mechanical offloading such as a inflatable doughnut while sitting and use Colace [id number] for stool softeners otherwise you may take ibuprofen as needed for pain that should be self-limiting. Clinical Impressions Clinical Impression: Coccyx contusion Discharge ED Provider: Milad Roberts General Adult HPI General Chief complaint: PAIN Stated complaint: Fall week ago Time Seen by Provider: 10/24/22 18:50 History of Present Illness HPI narrative: Patient is a 61-year-old female presents by EMS from [facility] after a questionable fall from history 3 weeks ago after which she states she has been having sacrum and coccyx pain since that time. She states that this hurts with when she has bowel movements and with any significant movement. She states pain is very mild at the moment. No lower extremity weakness. She is a very poor historian no and significant and comprehensive history is unable to be obtained. Related Data Home Medications Medication Instructions Recorded Confirmed atorvastatin 80 mg tablet (Lipitor) 80 mg PO ONCE Cholesterol 09/08/17 07/16/21 buspirone 30 mg tablet 30 mg PO BID bipolar 09/08/17 07/16/21 escitalopram oxalate 20 mg tablet 20 mg PO DAILY Depression 09/08/17 07/16/21 haloperidol 10 mg tablet 10 mg PO TID bipolar 09/08/17 07/16/21 loperamide 2 mg capsule 2 mg PO Q4H diarrhea 09/08/17 07/16/21 pantoprazole 20 mg tablet,delayed 40 mg PO QHS ppi 09/08/17 07/16/21 release (Protonix) perphenazine 8 mg tablet 8 mg PO BID unk 09/08/17 07/16/21 phenytoin sodium extended 100 mg 100 mg PO TID seizures 09/08/17 07/16/21 capsule (Dilantin Extended) potassium chloride 20 mEq 20 meq PO BID Supplement 09/08/17 07/16/21 tablet,extended release(part/cryst) (Klor-Con M) promethazine 25 mg tablet 25 mg PO Q6H PRN Nausea 09/08/17 07/16/21 triamterene 75 1 tab PO BID diuretic 09/08/17 07/16/21 mg-hydrochlorothiazide 50 mg tablet (Maxzide) lamotrigine 50 mg disintegrating 50 mg PO BID Supplement
--- NOTE | 2022-10-24 18:54 | XR_ITS ---
PROCEDURE INFORMATION: Exam: XR Sacrum and Coccyx, 2 or More Views Exam date and time: 10/24/2022 6:59 PM Age: 61 years old Clinical indication: Pain in coccyx area; Additional info: Fall, pain TECHNIQUE: Imaging protocol: XR of the sacrum and coccyx, 2 or more views. Total images: 3 COMPARISON: CR XR HIP LT 2-3V W/PELVIS 05/15/2021 8:23 PM FINDINGS: Bones/joints: No acute fracture or subluxation. Sacrococcygeal alignment is maintained on the sagittal view. Mild degenerative spondylosis lower lumbar spine. Minor anterolisthesis L4-L5 most likely degenerative. Pelvic ring is maintained. Mild degenerative changes bilateral SI joints. Soft tissues: Unremarkable soft tissues. Vasculature: Pelvic phleboliths. IMPRESSION: No acute osseous abnormality.
--- NOTE | 2022-10-24 19:19 | PC.NURSE ---
[facility] she advised I'll see what I can do regarding pt transportation
--- NOTE | 2022-10-24 19:22 | PC.NURSE ---
Tamika [facility] called to advise Someone should be there within the next 30 minutes
--- NOTE | 2022-10-24 19:29 | PC.NURSE ---
Patient ambulated to the restroom with walker. Patient states that she uses a walker at [place].
[2022-10-24 19:48] VITALS: BP 145/85; PULSE 80; RESP 16; TEMP 36.6; O2SAT 98
== END 2022-10-24 20:12 | disposition home or self-care (01) ==
PROVIDERS: Emergency Provider Student in an Organized Health Care Education/Training Program; PCP Emergency Medicine
DX: S30.0XXA Contusion of lower back and pelvis, initial encounter (principal); I10 Essential (primary) hypertension; F17.210 Nicotine dependence, cigarettes, uncomplicated; W19.XXXA Unspecified fall, initial encounter
CPT/HCPCS: 72220; 99283

== ENCOUNTER 2022-12-16 21:56 | Emergency (ER) | payer MEDICARE, MEDICAID, SELFPAY ==
[2022-12-16 21:56] VITALS: BP 137/86; PULSE 66; RESP 18; TEMP 36.6; O2SAT 96; BMI 32.4
--- NOTE | 2022-12-16 21:56 | CT_ITS ---
PROCEDURE INFORMATION: Exam: CT Thoracic Spine Without Contrast Exam date and time: 12/16/2022 10:13 PM Age: 61 years old Clinical indication: Injury or trauma; Fall; Additional info: Fall, headache, neck/back pain TECHNIQUE: Imaging protocol: Computed tomography of the thoracic spine without contrast. Radiation optimization: All CT scans at this facility use at least one of these dose optimization techniques: automated exposure control; mA and/or kV adjustment per patient size (includes targeted exams where dose is matched to clinical indication); or iterative reconstruction. REPORTING DATA: Count of CT and Cardiac NM exams in prior 12 months: This patient has received 0 known CTs and 0 known cardiac nuclear medicine studies in the 12 months prior to the current study. COMPARISON: CT CERVICAL SPINE WO CON 16/12/2022 22:11 FINDINGS: Bones/joints: No acute fracture. Normal alignment. No significant disc bulge or herniation. No severe spinal canal stenosis. No significant neural foraminal narrowing. Soft tissues: Unremarkable. Vasculature: The aorta demonstrates mild atherosclerotic disease. Lungs: Posterior atelectasis. Coronary arteries: Coronary artery calcifications. Gallbladder and bile ducts: Gallbladder is absent. Other findings: Stigmata of old granulomatous disease. IMPRESSION: No acute fracture or malalignment of the thoracic spine.
--- NOTE | 2022-12-16 21:56 | XR_ITS ---
PROCEDURE INFORMATION: Exam: XR Chest Exam date and time: 12/16/2022 10:15 PM Age: 61 years old Clinical indication: Injury or trauma; Fall; Blunt trauma (contusions or hematomas); Additional info: Pain TECHNIQUE: Imaging protocol: Radiologic exam of the chest. Views: 1 view. COMPARISON: CR XR CHEST 2V 15/05/2021 20:19 FINDINGS: Lungs: Unremarkable. No consolidation. Pleural spaces: Unremarkable. No pleural effusion. No pneumothorax. Heart/Mediastinum: Unremarkable. No cardiomegaly. Vasculature: Vascular calcifications. Bones/joints: Unremarkable. IMPRESSION: No acute intrathoracic organ injury.
--- NOTE | 2022-12-16 21:56 | CT_ITS ---
PROCEDURE INFORMATION: Exam: CT Lumbar Spine Without Contrast Exam date and time: 12/16/2022 10:15 PM Age: 61 years old Clinical indication: Injury or trauma; Fall; Additional info: Fall, headache, neck/back pain TECHNIQUE: Imaging protocol: Computed tomography of the lumbar spine without contrast. Radiation optimization: All CT scans at this facility use at least one of these dose optimization techniques: automated exposure control; mA and/or kV adjustment per patient size (includes targeted exams where dose is matched to clinical indication); or iterative reconstruction. REPORTING DATA: Count of CT and Cardiac NM exams in prior 12 months: This patient has received 0 known CTs and 0 known cardiac nuclear medicine studies in the 12 months prior to the current study. COMPARISON: CT THORACIC SPINE WO CON 16/12/2022 22:13 FINDINGS: Bones/joints: Degenerative changes at L4-L5 produce relatively severe spinal stenosis. No acute fracture. Gallbladder and bile ducts: Gallbladder is absent. Soft tissues: Unremarkable. IMPRESSION: No acute fracture or malalignment of the lumbar spine.
--- NOTE | 2022-12-16 21:56 | XR_ITS ---
PROCEDURE INFORMATION: Exam: XR Pelvis Exam date and time: 12/16/2022 10:15 PM Age: 61 years old Clinical indication: Injury or trauma; Fall; Blunt trauma (contusions or hematomas); Does not apply; Pelvic region; Additional info: Pain TECHNIQUE: Imaging protocol: Radiologic exam of the pelvis. Views: 1 or 2 view. COMPARISON: CR XR HIP LT 2-3V W/PELVIS 15/05/2021 20:23 FINDINGS: Bones/joints: No acute fracture or dislocation. Soft tissues: Unremarkable. IMPRESSION: No acute fracture or dislocation.
--- NOTE | 2022-12-16 21:56 | CT_ITS ---
PROCEDURE INFORMATION: Exam: CT Cervical Spine Without Contrast Exam date and time: 12/16/2022 10:11 PM Age: 61 years old Clinical indication: Injury or trauma; Fall; Additional info: Fall, headache, neck/back pain TECHNIQUE: Imaging protocol: Computed tomography of the cervical spine without contrast. Radiation optimization: All CT scans at this facility use at least one of these dose optimization techniques: automated exposure control; mA and/or kV adjustment per patient size (includes targeted exams where dose is matched to clinical indication); or iterative reconstruction. REPORTING DATA: Count of CT and Cardiac NM exams in prior 12 months: This patient has received 0 known CTs and 0 known cardiac nuclear medicine studies in the 12 months prior to the current study. COMPARISON: [facility] CT CERVICAL SPINE W/O CONT 05/25/2016 3:05 PM FINDINGS: Bones/joints: No acute fracture. Normal alignment. Mild degenerative disc disease is evident. No significant disc bulge or herniation. No severe spinal canal stenosis. No significant neural foraminal narrowing. Lungs: Lung apices are normal. Soft tissues: Unremarkable. IMPRESSION: No acute cervical spine fracture.
--- NOTE | 2022-12-16 21:56 | CT_ITS ---
PROCEDURE INFORMATION: Exam: CT Head Without Contrast Exam date and time: 12/16/2022 10:10 PM Age: 61 years old Clinical indication: Injury or trauma; Fall; Additional info: Fall, headache, neck/back pain TECHNIQUE: Imaging protocol: Computed tomography of the head without contrast. Radiation optimization: All CT scans at this facility use at least one of these dose optimization techniques: automated exposure control; mA and/or kV adjustment per patient size (includes targeted exams where dose is matched to clinical indication); or iterative reconstruction. REPORTING DATA: Count of CT and Cardiac NM exams in prior 12 months: This patient has received 0 known CTs and 0 known cardiac nuclear medicine studies in the 12 months prior to the current study. COMPARISON: CT HEAD/BRAIN WO CON 07/29/2020 10:23 AM FINDINGS: Brain: There is age related atrophy. No hemorrhage. There is periventricular white matter hypodensity consistent with chronic small vessel disease. No mass effect. Cerebral ventricles: No ventriculomegaly. Paranasal sinuses: Visualized sinuses are unremarkable. No fluid levels. Mastoid air cells: Visualized mastoid air cells are well aerated. Orbital cavities: The orbital contents are symmetric and normal. Bones/joints: Unremarkable. No acute fracture. Soft tissues: Unremarkable. IMPRESSION: No acute intracranial abnormality.
[2022-12-16 22:01] VITALS: BP 133/81; PULSE 63; O2SAT 97
--- NOTE | 2022-12-16 22:06 | PC.NURSE ---
Pt gone to RAD via stretcher
--- NOTE | 2022-12-16 22:32 | HMH.EDGENADL ---
Discharge Plan Disposition Patient Disposition: Home, Self-Care Condition: Good Prescriptions Prescriptions: No Action buspirone 30 mg tablet 30 mg PO BID phenytoin sodium extended [Dilantin Extended] 100 mg capsule 100 mg PO TID escitalopram oxalate 20 mg tablet 20 mg PO DAILY haloperidol 10 mg tablet 10 mg PO TID potassium chloride [Klor-Con M20] 20 mEq tablet,ER particles/crystals 20 meq PO BID atorvastatin [Lipitor] 80 mg tablet 80 mg PO ONCE loperamide 2 mg capsule 2 mg PO Q4H triamterene-hydrochlorothiazid [Maxzide] 75-50 mg tablet 1 tab PO BID promethazine 25 mg tablet 25 mg PO Q6H PRN (Reason: Nausea) pantoprazole [Protonix] 20 mg tablet,delayed release (DR/EC) 40 mg PO QHS perphenazine 8 mg tablet 8 mg PO BID hydrocodone-acetaminophen [Stephen] 5-325 mg tablet See Rx Instructions PO Q6H PRN (Reason: pain) Qty: 30 0RF Rx Instructions: 1 or 2 tablets PO every 6 hours PRN gabapentin 100 mg capsule 100 mg PO TID Qty: 90 5RF olanzapine 20 MG tablet 20 mg PO HS metformin 500 MG tablet 500 mg PO DAILY Rx Instructions: Take 1 tablet in the PM glipizide 5 MG tablet extended release 24hr 5 mg PO DAILY metformin 1,000 MG tablet 1,000 mg PO DAILY Rx Instructions: Take 1,000mg in the AM levofloxacin 500 MG tablet 500 mg PO DAILY Qty: 7 0RF cephalexin 500 MG capsule 500 mg PO TID Qty: 30 0RF levetiracetam 500 MG tablet 500 mg PO BID oxybutynin chloride 5 MG tablet extended release 24hr 5 mg PO DAILY lamotrigine 50 MG tablet,disintegrating 50 mg PO BID loratadine 10 MG capsule 10 mg PO DAILY ibuprofen 600 mg tablet 600 mg PO TID PRN (Reason: Breakthru Mild Pain) Qty: 0 0RF Referrals Follow up/Referrals: Provider,Referral, MD [Primary Care Provider] - See instructions Activity Restrictions/Add. Instructions Additional Instructions/Restrictions: You were evaluated in the emergency department today. At this time, your imaging demonstrates chronic spine arthritis that does cause some spinal stenosis. I recommend follow-up with your primary care provider for this. No other acute injuries found. Given this, we feel you are appropriate for discharge. Take Tylenol and ibuprofen at home as needed for pain. Return to the emergency department for any new or worsening symptoms. Clinical Impressions Clinical Impression: Spinal stenosis at L4-L5 level Fall Qualifiers: Encounter type: initial encounter Qualified Code(s): W19.XXXA - Unspecified fall, initial encounter Instructions Patient Instructions: How to Prevent Falls, DI for Spinal Stenosis Discharge ED Provider: Magali Pendleton General Adult HPI General Chief complaint: PAIN Stated complaint: fall Time Seen by Provider: 12/16/22 21:57 Mode of Arrival: EMS Source of Information: EMS Limitations: Physical Limitations Description of Symptoms (Recalled from ER Triage Doc. by RN): Pt brought in from [facility], EMS states she was standing in line to recieve nightly meds and tumbled backwards. No LOC, pt is complaining of neck pain, lower back pain and nausea. C-Collar applied History of Present Illness HPI narrative: This patient is a 61-year-old female with a history of schizophrenia, hypertension, hyperlipidemia, obesity, and diabetes presenting to the emergency department from [facility] for evaluation after a mechanical ground-level fall. She was standing in line to receive her nightly medications when she fell backwards. She did not hit her head or lose consciousness. She complains of headache, neck pain, low back pain, and nausea. She was well prior to the fall and denies any other concerns. She denies any numbness, tingling, or other concerns. Related Data Home Medications Medication Instructions Recorded Confirmed atorvastatin 80 mg tablet (Lipitor) 80 mg PO ONCE [place]ol[place]
--- NOTE | 2022-12-16 23:18 | PC.NURSE ---
Called [facility] for to notified that pt is ready for discharge. Staff member states that they not one at facility has a vehicle and would be calling public relations representativehousecalls nurse
--- NOTE | 2022-12-16 23:23 | PC.NURSE ---
called dispatch to see if they had an available officer to transport pt back to [facility]
[2022-12-16 23:24] VITALS: BP 122/72; PULSE 64; RESP 18; TEMP 36.6; O2SAT 97
--- NOTE | 2022-12-16 23:30 | PC.NURSE ---
[facility] called back and states they have no one to come chart picker patient untill 6:30 in the morning
== END 2022-12-16 23:45 | disposition home or self-care (01) ==
PROVIDERS: Emergency Provider Emergency Medicine
DX: R51.9 Headache, unspecified (principal); M54.2 Cervicalgia; M54.50 Low back pain, unspecified; R11.0 Nausea; F20.9 Schizophrenia, unspecified; I10 Essential (primary) hypertension; E78.5 Hyperlipidemia, unspecified; E11.9 Type 2 diabetes mellitus without complications; M48.061 Spinal stenosis, lumbar region without neurogenic claudication; W18.30XA Fall on same level, unspecified, initial encounter; F17.210 Nicotine dependence, cigarettes, uncomplicated
CPT/HCPCS: 70450; 71045; 72125; 72128; 72131; 72170; 99285

== ENCOUNTER → 2023-05-07 15:50 | Outpatient (CLI) | payer MEDICARE, MEDICAID, SELFPAY ==
--- NOTE | 2023-05-07 15:51 | MM_ITS ---
PROCEDURE INFORMATION: Exam: MG Bilateral Screening 3D Mammography Exam date and time: 05/07/2023 4:03 PM Age: 62 years old Clinical indication: Screening examination TECHNIQUE: Imaging protocol: Bilateral Screening tomosynthesis and 2D mammography including computer-aided detection (CAD) when performed. COMPARISON: No relevant prior studies available. FINDINGS: MAMMOGRAPHY: Breast composition: There are scattered areas of fibroglandular density. Mass: 2 adjacent or 1 bilobed 1.6 cm mass in the posterior left upper inner quadrant. This is better seen in the craniocaudal projection. Architectural distortion: None. Calcifications: No suspicious calcifications. Asymmetric density: None. Skin thickening: None. Axillary adenopathy: None. IMPRESSION: Patient to be recalled for spot compression views of the left breast in the CC and MLO projections, a full 90 degree lateral view, and left breast ultrasound for further evaluation of a left breast mass. ASSESSMENT: BI-RADS Category 0: Incomplete- Need Additional Imaging Evaluation and/or Prior Mammograms for Comparison
== END ==
PROVIDERS: PCP Emergency Medicine; Visit Provider Emergency Medicine
DX: Z12.31 Encounter for screening mammogram for malignant neoplasm of breast (principal)
CPT/HCPCS: 77063; 77067

== ENCOUNTER 2024-07-28 18:49 | Emergency (ER) | payer MEDICARE, MEDICAID, SELFPAY ==
[2024-07-28 18:50] VITALS: BP 169/89; PULSE 75; RESP 18; TEMP 37; O2SAT 97; BMI 31.8
[2024-07-28 18:55] VITALS: BP 142/93; PULSE 74; RESP 14; O2SAT 98
--- NOTE | 2024-07-28 19:05 | XR_ITS ---
PROCEDURE INFORMATION: Exam: XR Left Foot Exam date and time: 07/28/2024 7:13 PM Age: 63 years old Clinical indication: Other: Open wound on great toe; Additional info: Left foot TECHNIQUE: Imaging protocol: Radiologic exam of the left foot. Views: 3 or more views. COMPARISON: CR XR KNEE LT 3V 07/29/2020 10:26 AM FINDINGS: Bones/joints: No acute fracture or malalignment. No cortical destruction or periosteal reaction. Calcaneal enthesopathy. Soft tissues: Dorsal lateral distal great toe soft tissue wound. Generalized soft tissue swelling. IMPRESSION: Dorsal lateral distal great toe soft tissue wound. No acute osseous findings.
--- NOTE | 2024-07-28 19:07 | HMH.EDGENADL ---
Discharge Plan Disposition Patient Disposition: Home, Self-Care Condition: Good Prescriptions Prescriptions: New sulfamethoxazole-trimethoprim 800-160 mg tablet 1 tab PO BID 7 Days Qty: 14 0RF cephalexin 500 mg capsule 500 mg PO BID 7 Days Qty: 14 0RF No Action buspirone 30 mg tablet 30 mg PO BID phenytoin sodium extended [Dilantin Extended] 100 mg capsule 100 mg PO TID escitalopram oxalate 20 mg tablet 20 mg PO DAILY haloperidol 10 mg tablet 10 mg PO TID potassium chloride [Klor-Con M20] 20 mEq tablet,ER particles/crystals 20 meq PO BID atorvastatin [Lipitor] 80 mg tablet 80 mg PO ONCE loperamide 2 mg capsule 2 mg PO Q4H triamterene-hydrochlorothiazid [Maxzide] 75-50 mg tablet 1 tab PO BID promethazine 25 mg tablet 25 mg PO Q6H PRN (Reason: Nausea) pantoprazole [Protonix] 20 mg tablet,delayed release (DR/EC) 40 mg PO QHS perphenazine 8 mg tablet 8 mg PO BID hydrocodone-acetaminophen [Basehor] 5-325 mg tablet See Rx Instructions PO Q6H PRN (Reason: pain) Qty: 30 0RF Rx Instructions: 1 or 2 tablets PO every 6 hours PRN gabapentin 100 mg capsule 100 mg PO TID Qty: 90 5RF olanzapine 20 MG tablet 20 mg PO HS metformin 500 MG tablet 500 mg PO DAILY Rx Instructions: Take 1 tablet in the PM glipizide 5 MG tablet extended release 24hr 5 mg PO DAILY metformin 1,000 MG tablet 1,000 mg PO DAILY Rx Instructions: Take 1,000mg in the AM levofloxacin 500 MG tablet 500 mg PO DAILY Qty: 7 0RF cephalexin 500 MG capsule 500 mg PO TID Qty: 30 0RF levetiracetam 500 MG tablet 500 mg PO BID oxybutynin chloride 5 MG tablet extended release 24hr 5 mg PO DAILY lamotrigine 50 MG tablet,disintegrating 50 mg PO BID loratadine 10 MG capsule 10 mg PO DAILY ibuprofen 600 mg tablet 600 mg PO TID PRN (Reason: Breakthru Mild Pain) Qty: 0 0RF Referrals Follow up/Referrals: Bertram Chamorro APRN [Primary Care Provider] - See instructions Clinical Impressions Clinical Impression: Ingrown nail Instructions Patient Instructions: DI for Laceration Repair Print Language Print Language: Welsh Discharge ED Provider: Alejandro Manzano General Adult HPI <Destiny Gregorio APRN - Last Filed: 07/28/24 20:56> General Chief complaint: Wound/Laceration Stated complaint: Wound Check Time Seen by Provider: 07/28/24 18:57 Mode of Arrival: EMS Source of Information: Patient and EMS Limitations: No Limitations Description of Symptoms (Recalled from ER Triage Doc. by RN): Pt arrives via [facility] ems from [facility] for evaluation of left toe wound. Pt states she has had the wound 3-4 months, and patient states she has been seen by podiatry for it. Rates pain as a 5/10 History of Present Illness HPI narrative: patient is a 63-year-old female PMHx DM, HADLEY, schizophrenia, history of sepsis, abscess, hypertension who presents to the ED for wound on left great toe x 4 months. Patient states that she feels the wound is worsening and becoming more painful to ambulate on. Related Data Home Medications ?Medication ?Instructions ?Recorded ?Confirmed atorvastatin 80 mg tablet (Lipitor) 80 mg PO ONCE Cholesterol 09/08/17 07/16/21 buspirone 30 mg tablet 30 mg PO BID bipolar 09/08/17 07/16/21 escitalopram oxalate 20 mg tablet 20 mg PO DAILY Depression 09/08/17 07/16/21 haloperidol 10 mg tablet 10 mg PO TID bipolar 09/08/17 07/16/21 loperamide 2 mg capsule 2 mg PO Q4H diarrhea 09/08/17 07/16/21 pantoprazole 20 mg tablet,delayed 40 mg PO QHS ppi 09/08/17 07/16/21 release (Protonix) perphenazine 8 mg tablet 8 mg PO BID unk 09/08/17 07/16/21 phenytoin sodium extended 100 mg 100 mg PO TID seizures 09/08/17 07/16/21 capsule (Dilantin Extended) potassium chloride 20 mEq 20 meq PO BID Supplement 09/08/17 07/16/21 tablet,extended release(part/cryst) (Klor-Con M) promethazine 25 mg tablet 25 mg PO Q6H PRN Nausea 09/08/17 07/16/21 triamterene 75 1 tab PO BID diuretic 09/08/17 07/16/21 mg-hydrochlorothiazide 50 mg tablet (Maxzide) lamotrigine 50 mg disintegrating 50 mg PO BID Supplement 02/08/19 07/16/21 tablet levetiracetam 500 mg tablet 500 mg PO BID Supplement 02/08/19 07/16/21 loratadine 10 mg capsule 10 mg PO DAILY Supplement 02/08/19 07/16/21 oxybutynin chloride 5 mg 5 mg PO DAILY Supplement 02/08/19 07/16/21 tablet,extended release 24 hr olanzapine 20 mg tablet 20 mg PO HS sleep/mood 02/20/19 07/16/21 glipizide 5 mg tablet, extended 5 mg PO DAILY Diabetes 05/15/21 07/16/21 release 24 hr metformin 1,000 mg tablet 1,000 mg PO DAILY Diabetes 05/15/21 07/16/21 metformin 500 mg tablet 500 mg PO DAILY Diabetes 05/15/21 07/16/21 Previous Rx's ?Medication ?Instructions ?Recorded ibuprofen 600 mg tablet 600 mg PO TID PRN Breakthru Mild 02/10/19 Pain ##0 hydrocodone 5 mg-acetaminophen 325 See Rx Instructions PO Q6H PRN 03/30/20 mg tablet (Basehor) pain #30 tabs cephalexin 500 mg capsule 500 mg PO TID #30 caps 05/15/21 levofloxacin 500 mg tablet 500 mg PO DAILY #7 tabs 05/15/21 gabapentin 100 mg capsule 100 mg PO TID #90 caps 03/08/23 cephalexin 500 mg capsule 500 mg PO BID 7 days #14 caps 07/28/24 sulfamethoxazole 800 1 tab PO BID 7 days #14 tabs 07/28/24 mg-trimethoprim 160 mg tablet Allergies Allergy/AdvReac Type Severity Reaction Status Date / Time aripiprazole (From ABILIFY) Allergy Mild Unknown Verified 07/16/21 11:55 allergy reaction Penicillins (PENICILLINS) Allergy Mild Unknown Verified 07/16/21 11:55 allergy reaction codeine (CODEINE) Allergy Unknown Unknown Verified 07/16/21 11:55 allergy reaction paroxetine (PAROXETINE) Allergy Unknown Unknown Verified 07/16/21 11:55 allergy reaction PPD black rubber mix (PPD Allergy Unknown Unknown Verified 07/16/21 11:55 BLACK RUBBER MIX) allergy reaction tuberculin, purified protein Allergy Unknown Unknown Verified 07/16/21 11:55 deriva (From TUBERSOL) allergy reaction venom-honey bee Allergy Unknown Unknown Verified 07/16/21 11:55 allergy reaction venom-wasp Allergy Unknown Unknown Verified 07/16/21 11:55 allergy reaction venom-wasp protein Allergy Unknown Verified 07/16/21 11:55 allergy reaction PFSH <Destiny Gregorio APRN - Last Filed: 07/28/24 20:56> PFSH Disclaimer: The information contained in this section may have been updated after the patient was seen, as this information can be updated by other users. Medical History HTN (hypertension) Tachycardia Social History Smoking Status: Former smoker tobacco type: cigarettes packs per day: 1 second hand exposure: Yes alcohol intake: never substance use type: denies use current occupational status: disabled Travel in the last 8 weeks: None household members: other housing: other current occupational exposures/hazards: No caffeine: Yes Have you lived/traveled outside [place] in past 30 days?: No Contact w/someone who lives/traveled outside US past 30 days?: No Exposure to someone with infectious disease in past 14 days?: No Do you have a fever (greater than 100.4 F or 38 C)?: No Have you tested positive for COVID-19: No Exposed to someone with COVID-19 in past 14 days?: No Do you have a sore throat?: No Do you have a cough?: No Do you have any weakness?: No Do you have any diarrhea?: No Are you experiencing any unusual bleeding?: No Do you have any muscle aches/pain?: No Do you have any abdominal pain?: No Are you experiencing loss of taste or smell?: No Other Medical History Have you received the Flu Vaccine for this season: Yes Have you received the Pneumonia Vaccine: No <Destiny Gregorio APRN - Last Filed: 07/28/24 20:56> ROS Obtained: Yes Systems reviewed as appropriate & no additional complaints except as documented Physical Exam <Destiny Gregorio APRN - Last Filed: 07/28/24 20:56> General General appearance: alert and in no apparent distress Head Head exam: atraumatic and normocephalic Eye Eye exam: Present normal appearance and PERRL ENT ENT exam: Present normal exam Neck Neck exam: Present normal inspection Chest Chest inspection: Present normal inspection and symmetric chest wall rise; Absent tenderness Respiratory Respiratory exam: Present normal lung sounds bilaterally Cardiovascular Cardiovascular exam: Present regular rate Abdominal Exam Abdominal exam: Present soft and normal bowel sounds; Absent tenderness Extremities Exam Extremities exam: Present normal inspection and full ROM Back Exam Back exam: Present normal inspection and full ROM Neurological Exam Neurological exam: Present alert and oriented X3 Psychiatric Psychiatric exam: Present normal affect and normal mood Skin Skin exam: Present warm, dry and other (left great toe erythema, warmth, tenderness, left-sided necrotic nail bed.) Medical Decision Making <Destiny Gregorio APRN - Last Filed: 07/28/24 20:56> Medical Records Screening: Per USPSTF and CDC recommendations, given the prevalence of disease in our region, it is our hospital?s policy to screen for HIV and viral Hepatitis for all patients aged 18 and over and those with ongoing risk factors. Otis Inquiry Pt receiving controlled substance: No Otis was queried for this patient: No Vital Signs: 07/28/24 18:50 07/28/24 18:55 07/28/24 21:04 Temperature 98.6 F 98.3 F Temperature Source Oral Pulse Rate 74 65 Pulse Rate [Right] 75 Respiratory Rate 18 14 18 Blood Pressure 142/93 H 128/74 Blood Pressure [Right Arm] 169/89 H Blood Pressure Mean [Right Arm] 115 Blood Pressure Source [Right Arm] Automatic Cuff Blood Pressure Position Supine Blood Pressure Position [Right Arm] Sitting 02 Sat by Pulse Oximetry 97 98 Oxygen Delivery Method Room Air Room Air Room Air Lab Data Lab Results 07/28/24 19:25: WBC 15.1 H, RBC 4.17 L, Hgb 11.9 L, Hct 37.7, MCV 90.4, MCH 28.5, MCHC 31.6 L, RDW 13.7, Plt Count 235, MPV 11.5 H, Neut % (Auto) 66.3, Lymph % (Auto) 19.4, Sebastian % (Auto) 8.2, Eos % (Auto) 4.7, Baso % (Auto) 0.7, Neut # (Auto) 10.0 H, Lymph # (Auto) 2.9, Sebastian # (Auto) 1.2 H, Eos # (Auto) 0.7 H, Baso # (Auto) 0.1, Total Counted 100, Neutrophils % (Manual) 63, Lymphocytes % (Manual) 23, Monocytes % (Manual) 6, Eosinophils % (Manual) 7 H, Basophils % (Manual) 1.0, Platelet Estimate Normal, RBC Morphology Normal, ESR 21, Sodium 138, Potassium 4.0, Chloride 102, Carbon Dioxide 29, Anion Gap 11.0, BUN 20 H, Creatinine 1.00, Estimated Creat Clear 81, Estimated GFR 56 L, Est GFR ( Amer) 68, Glucose 146 H, Calcium 8.9, Total Bilirubin 0.2, AST 28, ALT 27, Alkaline Phosphatase 86, C-Reactive Protein 7.7 H, Total Protein 7.0, Albumin 4.4, Globulin 2.6, Albumin/Globulin Ratio 1.7 07/28/24 19:25 07/28/24 19:25 Orders (Tests/Meds): ED MEDICATIONS Discontinued Medications Generic Name Dose Route Start Last Admin Trade Name Freq PRN Reason Stop Dose Admin Acetaminophen 1,000 mg 07/28/24 19:05 07/28/24 19:23 Acetaminophen 500mg Tab PO 07/28/24 19:06 1,000 mg ONCE ONE Administration ORDERS Category Date Time Status Foot XR left minimum 3 views [XR foot LT min 3V] Stat Exams 07/28/24 19:05 Completed CBC w/Auto Diff [Complete Blood Count Auto Diff] Stat Lab 07/28/24 19:25 Completed CMP [Comprehensive Metabolic Panel] Stat Lab 07/28/24 19:25 Completed CRP [C-Reactive Protein] Stat Lab 07/28/24 19:25 Completed Erythrocyte Sedimentation Rate Stat Lab 07/28/24 19:25 Completed Medical Decision Narrative: In summary, patient is a 63-year-old female PMHx DM, HADLEY, schizophrenia, history of sepsis, abscess, hypertension who presents to the ED for wound on left great toe x 4 months. Patient states that she feels the wound is worsening and becoming more painful to ambulate on. Patient states she ambulates at home with a walker. Upon initial exam, patient is alert, oriented and cooperative. Patient is hemodynamically stable. Physical exam remarkable for left great toe erythema, warmth, tenderness, left-sided necrotic nail bed. Differential diagnosis includes osteomyelitis, sepsis, abscess, cellulitis, among others Initial workup will be conducted with hematologic labs, imaging. Initial inventions include acetaminophen. Initial workup reviewed by me. CBC remarkable for WBC 15.1, stable H&H. CMP unremarkable for any actionable abnormalities. CRP 7.7. I considered additional testing but deferred due to Left foot x-ray final read remarkable for dorsal lateral distal great toe soft tissue wound, no acute osseous findings. Discussed with patient that we will send her home onto oral antibiotics. Advised her to complete the entirety of the course. Advised her she will need to follow-up with her PCP within 7 days. We discussed return precautions to the ED. Patient verbalized understanding. <Alejandro Manzano MD - Last Filed: 07/28/24 23:58> Vital Signs: 07/28/24 18:50 07/28/24 18:55 07/28/24 21:04 Temperature 98.6 F 98.3 F Temperature Source Oral Pulse Rate 74 65 Pulse Rate [Right] 75 Respiratory Rate 18 14 18 Blood Pressure 142/93 H 128/74 Blood Pressure [Right Arm] 169/89 H Blood Pressure Mean [Right Arm] 115 Blood Pressure Source [Right Arm] Automatic Cuff Blood Pressure Position Supine Blood Pressure Position [Right Arm] Sitting 02 Sat by Pulse Oximetry 97 98 Oxygen Delivery Method Room Air Room Air Room Air Lab Data Lab Results 07/28/24 19:25: WBC 15.1 H, RBC 4.17 L, Hgb 11.9 L, Hct 37.7, MCV 90.4, MCH 28.5, MCHC 31.6 L, RDW 13.7, Plt Count 235, MPV 11.5 H, Neut % (Auto) 66.3, Lymph % (Auto) 19.4, Sebastian % (Auto) 8.2, Eos % (Auto) 4.7, Baso % (Auto) 0.7, Neut # (Auto) 10.0 H, Lymph # (Auto) 2.9, Sebastian # (Auto) 1.2 H, Eos # (Auto) 0.7 H, Baso # (Auto) 0.1, Total Counted 100, Neutrophils % (Manual) 63, Lymphocytes % (Manual) 23, Monocytes % (Manual) 6, Eosinophils % (Manual) 7 H, Basophils % (Manual) 1.0, Platelet Estimate Normal, RBC Morphology Normal, ESR 21, Sodium 138, Potassium 4.0, Chloride 102, Carbon Dioxide 29, Anion Gap 11.0, BUN 20 H, Creatinine 1.00, Estimated Creat Clear 81, Estimated GFR 56 L, Est GFR ( Amer) 68, Glucose 146 H, Calcium 8.9, Total Bilirubin 0.2, AST 28, ALT 27, Alkaline Phosphatase 86, C-Reactive Protein 7.7 H, Total Protein 7.0, Albumin 4.4, Globulin 2.6, Albumin/Globulin Ratio 1.7 Orders (Tests/Meds): ED MEDICATIONS Discontinued Medications Generic Name Dose Route Start Last Admin Trade Name Alexander PRN Reason Stop Dose Admin Acetaminophen 1,000 mg 07/28/24 19:05 07/28/24 19:23 Acetaminophen 500mg Tab PO 07/28/24 19:06 1,000 mg ONCE ONE Administration ORDERS Category Date Time Status Foot XR left minimum 3 views [XR foot LT min 3V] Stat Exams 07/28/24 19:05 Completed CBC w/Auto Diff [Complete Blood Count Auto Diff] Stat Lab 07/28/24 19:25 Completed CMP [Comprehensive Metabolic Panel] Stat Lab 07/28/24 19:25 Completed CRP [C-Reactive Protein] Stat Lab 07/28/24 19:25 Completed Erythrocyte Sedimentation Rate Stat Lab 07/28/24 19:25 Completed Medical Decision Narrative: In summary, patient is a 63-year-old female PMHx DM, HADLEY, schizophrenia, history of sepsis, abscess, hypertension who presents to the ED for wound on left great toe x 4 months. Patient states that she feels the wound is worsening and becoming more painful to ambulate on. Patient states she ambulates at home with a walker. Upon initial exam, patient is alert, oriented and cooperative. Patient is hemodynamically stable. Physical exam remarkable for left great toe erythema, warmth, tenderness, left-sided necrotic nail bed. Differential diagnosis includes osteomyelitis, sepsis, abscess, cellulitis, among others Initial workup will be conducted with hematologic labs, imaging. Initial inventions include acetaminophen. Initial workup reviewed by me. CBC remarkable for WBC 15.1, stable H&H. CMP unremarkable for any actionable abnormalities. CRP 7.7. I considered additional testing but deferred due to Left foot x-ray final read remarkable for dorsal lateral distal great toe soft tissue wound, no acute osseous findings. Discussed with patient that we will send her home onto oral antibiotics. Advised her to complete the entirety of the course. Advised her she will need to follow-up with her PCP within 7 days. We discussed return precautions to the ED. Patient verbalized understanding. I was consulted by the KRISS, and we discussed the complexity of the problems being addressed. I approved the treatment and management plan for this patient's care in the Emergency Department, thus performing a substantive portion of the medical decision making. Alejandro Manzano MD Critical Care <Destiny Gregorio, CHRISTIAN SCIENCE HEALER - Last Filed: 07/28/24 20:56> Critical Care Time Critical Care Time: No
[2024-07-28] MEDS: ACETAMINOPHEN 500MG TAB 1000 MG PO (19:23)
[2024-07-28 19:34] LABS: Basophils # 0.1 K/mm3 (0-0.2); Basophils % 0.7 % (0.1-2.0); Eosinophils # 0.7 K/mm3 (0.0-0.4); Eosinophils % 4.7 % (0.1-12.0); Hematocrit 37.7 % (37.0-47.0); Hemoglobin 11.9 g/dL (12.2-16.2); Lymphocytes # 2.9 K/mm3 (0.7-4.5); Lymphocytes % 19.4 % (10-50); Mean Corpuscular HGB Conc 31.6 g/dL (31.8-35.4); Mean Corpuscular Hemoglobin 28.5 pg (27.0-31.2); Mean Corpuscular Volume 90.4 fl (81-99); Mean Platelet Volume 11.5 fl (7.4-10.4); Monocytes # 1.2 K/mm3 (0.1-1.0); Monocytes % 8.2 % (1.7-9.3); Neutrophils % 66.3 % (37.0-80.0); Platelet Count 235 K/mm3 (142-424); Red Blood Count 4.17 M/mm3 (4.20-5.40); Red Cell Distribution Width 13.7 % (11.5-17.5); White Blood Count 15.1 K/mm3 (4.8-10.8)
[2024-07-28 19:36] LABS: MANUAL DIFFERENTIAL MANUAL DIFFERENTIAL (MANUAL DIFF)
[2024-07-28 19:40] LABS: Alanine Aminotransferase 27 U/L (12-78); Albumin Level 4.4 g/dl (3.5-5.0); Albumin/Globulin Ratio 1.7 (1.1-1.8); Alkaline Phosphatase 86 U/L (38-126); Aspartate Amino Transferase 28 U/L (14-36); Bilirubin,Total 0.2 mg/dl (0.2-1.3); Blood Urea Nitrogen 20 mg/dl (7-17); Calcium 8.9 mg/dl (8.4-10.2); Carbon Dioxide 29 mmol/L (22.0-30.0); Creatinine Clearance Estimated 81 mL/min (50-200); Estimated Glomerular Filt Rate 56 ml/min (>60); GFR (African American) 68 ML/MIN (>60); Globulin 2.6 g/dL (1.3-3.2); Glucose 146 mg/dl (74-100); Sodium 138 mmol/L (136-145)
[2024-07-28 19:46] LABS: C-Reactive Protein 7.7 mg/L (0-4)
[2024-07-28 19:52] LABS: Chloride 102 mmol/L (98-107)
[2024-07-28 20:11] LABS: Eosinophils % 7 % (0-3); Lymphocytes % 23 % (10-50); Monocytes % 6 % (2-9); Neutrophils % 63 % (42-76); RBC Morphology Normal; Total Cells Counted 100
[2024-07-28 20:12] LABS: Platelet Estimate Normal
[2024-07-28 20:48] LABS: Erythrocyte Sedimentation Rate 21 mm/hr (0-30)
[2024-07-28 21:04] VITALS: BP 128/74; PULSE 65; RESP 18; TEMP 36.8; O2SAT 98
== END 2024-07-28 20:50 | disposition home or self-care (01) ==
PROVIDERS: Nurse Practitioner; Emergency Provider Emergency Medicine; PCP Nurse Practitioner Acute Care
DX: L60.0 Ingrowing nail (principal); M79.675 Pain in left toe(s); F17.210 Nicotine dependence, cigarettes, uncomplicated
CPT/HCPCS: 73630; 80053; 85007; 85025; 85027; 85651; 86140; 99283

== ENCOUNTER 2025-01-11 09:30 | Emergency (ER) | payer MEDICARE, MEDICAID, SELFPAY ==
[2025-01-11 09:23] VITALS: BP 120/68; PULSE 80; RESP 18; TEMP 37.1; O2SAT 97; BMI 30.7
[2025-01-11 09:31] VITALS: BP 132/88; PULSE 88; O2SAT 97
--- OUTSIDE RECORDS SUMMARY | 2025-01-11 09:37 | XMS_ITS | Clinical Summary ---
Author Organization [facility] Address [facility] [place] [id number] Care Team Providers Care Control Systems Engineer Name Role Phone Jerrod Douglass MD Primary Care Provider [phone] Allergies Active Allergy Reactions Criticality Noted Date Comments Tuberculin Ppd Unknown - Patient st ates they do not know rxn details Low 07/15/2020 Aripiprazole Unknown - Patient st ates they do not know rxn details Low 07/15/2020 Bee Venom Unknown - Patient [facility] ates they do not know rxn details Low 01/27/2021 Codeine Unknown - Patient [facility] ates they do not know rxn details Low 07/15/2020 Paroxetine Unknown - Patient [facility] ates they do not know rxn details Low 07/15/2020 Penicillins Unknown - Patient [facility] ates they do not know rxn details Low 07/15/2020 Medications atorvastatin (Lipitor) 80 MG tablet TAKE 1 TABLET DAILY. 07/15/2020 Active benztropine (Cogentin) 1 MG tablet TAKE 1 TABLET TWICE DAILY. 07/15/2020 Active busPIRone (Buspar) 30 MG tablet TAKE 1 TABLET TWICE DAILY. 07/15/2020 Active escitalopram (Lexapro) 20 MG tablet TAKE 1 TABLET DAILY. 07/15/2020 Active glipiZIDE XL (Glucotrol XL) 2.5 MG 24 hr tablet TAKE 1 TABLET DAILY. 07/15/2020 Active haloperidol (Haldol) 10 MG tablet TAKE 1 TABLET 3 times daily 07/15/2020 Active hydrOXYzine HCl (Atarax) 25 MG tablet TAKE 1 TABLET TWICE DAILY. 07/15/2020 Active lamoTRIgine (LaMICtal) 25 MG tablet TAKE 2 TABLETS TWICE DAILY 07/15/2020 Active levETIRAcetam (Keppra) 500 MG tablet TAKE 1 TABLET TWICE DAILY. 07/15/2020 Active loperamide (Imodium) 2 MG capsule 07/15/2020 Active loratadine (Claritin) 10 MG tablet TAKE 1 TABLET DAILY. 07/15/2020 Active metFORMIN (Glucophage) 500 MG tablet TAKE 1 TABLET TWICE DAILY WITH MEALS. 07/15/2020 Active metoprolol succinate XL (Toprol-XL) 25 MG 24 hr tablet TAKE 1 TABLET DAILY. 07/15/2020 Active OLANZapine (ZyPREXA) 20 MG tablet TAKE 1 TABLET AT BEDTIME. 07/15/2020 Active oxybutynin (Ditropan) 5 MG tablet take one tablet by mouth once daily 07/15/2020 Active pantoprazole (ProtoNix) 40 MG EC tablet Take 40 mg by mouth 1 (one) time each day before breakfast. Do not crush, chew, or split. Active perphenazine 8 MG tablet Take 8 mg by mouth 3 (three) times a day. Active potassium chloride CR (Klor-Con M20) 20 MEQ ER tablet Take 20 mEq by mouth 2 (two) times a day. Do not crush or chew. Active promethazine (Phenergan) 25 MG tablet Take 25 mg by mouth every 6 (six) hours if needed. Active triamterene-hyd rochlorothiazid e (Maxzide) 75-50 MG tablet Take 1 tablet by mouth 2 (two) times a day. Active cholecalciferol (Vitamin D3) 25 MCG (1000 UT) tablet Take 1,000 Units by mouth 1 (one) time each day. Active Active Problems Problem Noted Date Diagnosed Date CKD (chronic kidney disease) stage 3, GFR 30-59 ml/min 06/18/2020 Social History Tobacco Use Types Packs/Day Years Used Date Smoking Tobacco: Every Day Smokeless Tobacco: Never Comments Unknown Sex and Gender Information Value Date Recorded Sex Assigned at Not on file Legal Sex Female 8:13 PM EDT Gender Identity Not on file Sexual Orientation Not on file Last Filed Vital Signs Vital Sign Reading Time Taken Comments Blood Pressure 119/65 01/27/2021 1:38 PM EDT Pulse 96 01/27/2021 1:38 PM EDT Temperature - - Respiratory Rate - - Oxygen Saturation - - Inhaled Oxygen Concentration - - Weight 89.2 kg (196 lb 9.6 oz) 01/27/2021 1:38 P M EDT Height - - Body Mass Index - - Plan of Treatment Health Maintenance Due Date Last Done Comments [facility]-Depression Screening 1962 [facility]-/Child/Adol SDOH Screenings 1962 [facility]- SDOH Screenings 1980 [facility]-Adult SDOH Screenings 1980 [facility]-Pap Smear 12/23/1983 [facility]-Cervical Cancer Screening 1992 [facility]-HPV/Cotest 1992 CT Colonography 12/23/2007 Colonoscopy 12/23/2007 FIT-DNA 12/23/2007 FIT 12/23/2007 FOBT 12/23/2007 Sigmoidoscopy 12/23/2007 [facility]-Colorectal Cancer Screening 12/23/2007 [facility]-Pneumococcal Vaccine: 50+ Years (1 of 1 - PCV) 2012 [facility]-Zoster Vaccines (1 of 2) 2012 [facility]-DTaP,Tdap,and Td Vaccines (3 - Td or Tdap) 11/11/2021 11/12/2011, 03/22/2008 [id number] Vaccine (3 - season) 2024 06/29/2020, 06/08/2020 [facility]-Influenza Vaccine (#1) 01/29/202504/01, 04/18/2019, 03/22/2018, Additional history exists [facility]-RSV Vaccine: 60+ Years or (1 - 1-dose 75+ series) 2037 [facility]-Hepatitis A Vaccines Aged Out 04/15/2018 No longer eligible based on patient's age to complete this topic HPV Vaccines Aged Out No longer eligi ble based on patient's age to complete this topic [facility]-HIB Vaccines Aged Out No longer e ligible based on patient's age to complete this topic [facility]-IPV Vaccines Aged Out No longer e ligible based on patient's age to complete this topic [facility]-Rotavirus Vaccines Aged Out No lo nger eligible based on patient's age to complete this topic Insurance [facility] MEDICAID MEDICARE Care Teams Control Systems Engineer Relationship Specialty Start Date End Date Jerrod Douglass MD [address] [place] [address] PCP - General 10/11/20
[2025-01-11 09:46] VITALS: BP 156/79; PULSE 83; O2SAT 93
[2025-01-11 10:01] VITALS: BP 99/63; PULSE 84; O2SAT 96
--- NOTE | 2025-01-11 10:05 | PC.NURSE ---
Yamileth calling for tray at this time
--- NOTE | 2025-01-11 10:06 | PC.NURSE ---
DR MUNOZ AT BEDSIDE
--- NOTE | 2025-01-11 10:08 | XR_ITS ---
FINAL REPORT CLINICAL HISTORY: fall, pain COMPARISON: 05/15/2021 FINDINGS: An AP view of the pelvis and two view of the left hip were obtained. There is no acute fracture or dislocation. Joint space is preserved. Remaining osseous pelvis is without acute abnormality. Soft tissues are unremarkable. IMPRESSION: No acute osseous abnormality of the left hip. Reviewed, Interpreted and Dictated by Emani Juan MD Transcribed by Daya Pa Authenticated and [facility]
--- NOTE | 2025-01-11 10:08 | XR_ITS ---
FINAL REPORT CLINICAL HISTORY: fall/pain COMPARISON: 05/15/2021 FINDINGS: An AP view of the pelvis and two view of the right hip were obtained. There is no acute fracture or dislocation. Joint space is preserved. Remaining osseous pelvis is without acute abnormality. Soft tissues are unremarkable. IMPRESSION: No acute osseous abnormality of the right hip. Reviewed, Interpreted and Dictated by Emani Juan MD Transcribed by Daya Pa Authenticated and [facility]
--- NOTE | 2025-01-11 10:11 | HMH.EDGENADL ---
Discharge Plan Disposition Patient Disposition: Home, Self-Care Prescriptions Prescriptions: No Action buspirone 30 mg tablet 30 mg PO BID phenytoin sodium extended [Dilantin Extended] 100 mg capsule 100 mg PO TID escitalopram oxalate 20 mg tablet 20 mg PO DAILY haloperidol 10 mg tablet 10 mg PO TID potassium chloride [Klor-Con M20] 20 mEq tablet,ER particles/crystals 20 meq PO BID atorvastatin [Lipitor] 80 mg tablet 80 mg PO ONCE loperamide 2 mg capsule 2 mg PO Q4H triamterene-hydrochlorothiazid [Maxzide] 75-50 mg tablet 1 tab PO BID promethazine 25 mg tablet 25 mg PO Q6H PRN (Reason: Nausea) pantoprazole [Protonix] 20 mg tablet,delayed release (DR/EC) 40 mg PO QHS perphenazine 8 mg tablet 8 mg PO BID hydrocodone-acetaminophen [Troy] 5-325 mg tablet See Rx Instructions PO Q6H PRN (Reason: pain) Qty: 30 0RF Rx Instructions: 1 or 2 tablets PO every 6 hours PRN gabapentin 100 mg capsule 100 mg PO TID Qty: 90 5RF olanzapine 20 MG tablet 20 mg PO HS metformin 500 MG tablet 500 mg PO DAILY Rx Instructions: Take 1 tablet in the PM glipizide 5 MG tablet extended release 24hr 5 mg PO DAILY metformin 1,000 MG tablet 1,000 mg PO DAILY Rx Instructions: Take 1,000mg in the AM levofloxacin 500 MG tablet 500 mg PO DAILY Qty: 7 0RF cephalexin 500 MG capsule 500 mg PO TID Qty: 30 0RF sulfamethoxazole-trimethoprim 800-160 mg tablet 1 tab PO BID 7 Days Qty: 14 0RF cephalexin 500 mg capsule 500 mg PO BID 7 Days Qty: 14 0RF levetiracetam 500 MG tablet 500 mg PO BID oxybutynin chloride 5 MG tablet extended release 24hr 5 mg PO DAILY lamotrigine 50 MG tablet,disintegrating 50 mg PO BID loratadine 10 MG capsule 10 mg PO DAILY ibuprofen 600 mg tablet 600 mg PO TID PRN (Reason: Breakthru Mild Pain) Qty: 0 0RF Referrals Follow up/Referrals: Provider,Referral, MD [Primary Care Provider, Medical] - See instructions Activity Restrictions/Add. Instructions Additional Instructions/Restrictions: No evidence of any fracture or dislocation you may take Tylenol and ibuprofen as needed for your bilateral hip pain. Clinical Impressions Clinical Impression: Bilateral hip pain, Fall Print Language Print Language: Urdu Discharge ED Provider: Milad Roberts General Adult HPI General Chief complaint: PAIN Stated complaint: Hip pain Time Seen by Provider: 01/11/25 10:06 Mode of Arrival: EMS Source of Information: Patient Description of Symptoms (Recalled from ER Triage Doc. by RN): PT REPORT FALLING ABOUT 3 WEEKS AGO, PT IS RESIDENT OF [facility]. NO FALLS TODAY BUT REPORTS BILATERAL HIP PAIN. HAS BEEN AMBULATORY WITH WALKER History of Present Illness HPI narrative: The patient is a 64-year-old from [facility] who presents today with bilateral hip pain after a fall 3 weeks ago. She is cognitively impaired at baseline and further extensive history unable to be obtained. She denies injuries elsewhere or pain elsewhere. She has been ambulatory with a walker leading up to today's presentation. Related Data Home Medications ?Medication ?Instructions ?Recorded ?Confirmed atorvastatin 80 mg tablet (Lipitor) 80 mg PO ONCE Cholesterol 09/08/17 07/16/21 buspirone 30 mg tablet 30 mg PO BID bipolar 09/08/17 07/16/21 escitalopram oxalate 20 mg tablet 20 mg PO DAILY Depression 09/08/17 07/16/21 haloperidol 10 mg tablet 10 mg PO TID bipolar 09/08/17 07/16/21 loperamide 2 mg capsule 2 mg PO Q4H diarrhea 09/08/17 07/16/21 pantoprazole 20 mg tablet,delayed 40 mg PO QHS ppi 09/08/17 07/16/21 release (Protonix) perphenazine 8 mg tablet 8 mg PO BID unk 09/08/17 07/16/21 phenytoin sodium extended 100 mg 100 mg PO TID seizures 09/08/17 07/16/21 capsule (Dilantin Extended) potassium chloride 20 mEq 20 meq PO BID Supplement 09/08/17 07/16/21 tablet,extended release(part/cryst) (Klor-Con M) promethazine 25 mg tablet 25 mg PO Q6H PRN Nausea 09/08/17 07/16/21 triamterene 75 1 tab PO BID diuretic 09/08/17 07/16/21 mg-hydrochlorothiazide 50 mg tablet (Maxzide) lamotrigine 50 mg disintegrating 50 mg PO BID Supplement 02/08/19 07/16/21 tablet levetiracetam 500 mg tablet 500 mg PO BID Supplement 02/08/19 07/16/21 loratadine 10 mg capsule 10 mg PO DAILY Supplement 02/08/19 07/16/21 oxybutynin chloride 5 mg 5 mg PO DAILY Supplement 02/08/19 07/16/21 tablet,extended release 24 hr olanzapine 20 mg tablet 20 mg PO HS sleep/mood 02/20/19 07/16/21 glipizide 5 mg tablet, extended 5 mg PO DAILY Diabetes 05/15/21 07/16/21 release 24 hr metformin 1,000 mg tablet 1,000 mg PO DAILY Diabetes 05/15/21 07/16/21 metformin 500 mg tablet 500 mg PO DAILY Diabetes 05/15/21 07/16/21 Previous Rx's ?Medication ?Instructions ?Recorded ibuprofen 600 mg tablet 600 mg PO TID PRN Breakthru Mild 02/10/19 Pain ##0 hydrocodone 5 mg-acetaminophen 325 See Rx Instructions PO Q6H PRN 03/30/20 mg tablet (Troy) pain #30 tabs cephalexin 500 mg capsule 500 mg PO TID #30 caps 05/15/21 levofloxacin 500 mg tablet 500 mg PO DAILY #7 tabs 05/15/21 gabapentin 100 mg capsule 100 mg PO TID #90 caps 03/08/23 cephalexin 500 mg capsule 500 mg PO BID 7 days #14 caps 07/28/24 sulfamethoxazole 800 1 tab PO BID 7 days #14 tabs 07/28/24 mg-trimethoprim 160 mg tablet Allergies Allergy/AdvReac Type Severity Reaction Status Date / Time aripiprazole (From ABILIFY) Allergy Mild Unknown Verified 07/16/21 11:55 allergy reaction Penicillins (PENICILLINS) Allergy Mild Unknown Verified 07/16/21 11:55 allergy reaction codeine (CODEINE) Allergy Unknown Unknown Verified 07/16/21 11:55 allergy reaction paroxetine (PAROXETINE) Allergy Unknown Unknown Verified 07/16/21 11:55 allergy reaction PPD black rubber mix (PPD Allergy Unknown Unknown Verified 07/16/21 11:55 BLACK RUBBER MIX) allergy reaction tuberculin, purified protein Allergy Unknown Unknown Verified 07/16/21 11:55 deriva (From TUBERSOL) allergy reaction venom-honey bee Allergy Unknown Unknown Verified 07/16/21 11:55 allergy reaction venom-wasp Allergy Unknown Unknown Verified 07/16/21 11:55 allergy reaction venom-wasp protein Allergy Unknown Verified 07/16/21 11:55 allergy reaction PFSH PFSH Disclaimer: The information contained in this section may have been updated after the patient was seen, as this information can be updated by other users. Medical History HTN (hypertension) Tachycardia Social History Smoking Status: Current every day smoker tobacco type: cigarettes packs per day: 1 second hand exposure: Yes alcohol intake: never substance use type: denies use current occupational status: disabled Travel in the last 8 weeks?: None household members: other housing: other current occupational exposures/hazards: No caffeine: Yes Have you lived/traveled outside [place] in past 30 days?: No Contact w/someone who lives/traveled outside [place] past 30 days?: No Exposure to someone with infectious disease in past 14 days?: No Do you have a fever (greater than 100.4 F or 38 C)?: No Have you tested positive for COVID-19?: No Exposed to someone with COVID-19 in past 14 days?: No Do you have a sore throat?: No Do you have a cough?: No Do you have any weakness?: No Do you have any diarrhea?: No Are you experiencing any unusual bleeding?: No Do you have any muscle aches/pain?: No Do you have any abdominal pain?: No Are you experiencing loss of taste or smell?: No Other Medical History Have you received the Flu Vaccine for this season: Yes Have you received the Pneumonia Vaccine: No ROS Obtained: Yes All systems reviewed & no additional complaints except as documented Physical Exam General General appearance: alert and in no apparent distress Respiratory Respiratory exam: Present normal lung sounds bilaterally Cardiovascular Cardiovascular exam: Present regular rate Extremities Exam Extremities exam: Present other (Normal internal extra rotation flexion extension of bilateral hips but she complains of pain in this area no injuries or pain elsewhere.) Neurological Exam Neurological exam: Present alert and oriented X3 Medical Decision Making Medical Records Screening: Per USPSTF and CDC recommendations, given the prevalence of disease in our region, it is our hospital?s policy to screen for HIV and viral Hepatitis for all patients aged 18 and over and those with ongoing risk factors. Otis Inquiry Pt receiving controlled substance: No Vital Signs: 01/11/25 09:23 01/11/25 09:31 01/11/25 09:46 Temperature 98.8 F Temperature Source Oral Pulse Rate 88 83 Pulse Rate [Radial] 80 Respiratory Rate 18 Blood Pressure 132/88 156/79 H Blood Pressure [Right Arm] 120/68 Blood Pressure Mean [Right Arm] 85 Blood Pressure Source [Right Arm] Automatic Cuff Blood Pressure Position [Right Arm] Sitting 02 Sat by Pulse Oximetry 97 97 93 L Oxygen Delivery Method Room Air 01/11/25 10:01 Temperature Temperature Source Pulse Rate 84 Pulse Rate [Radial] Respiratory Rate Blood Pressure 99/63 L Blood Pressure [Right Arm] Blood Pressure Mean [Right Arm] Blood Pressure Source [Right Arm] Blood Pressure Position [Right Arm] 02 Sat by Pulse Oximetry 96 Oxygen Delivery Method Orders (Tests/Meds): ORDERS Category Date Time Status Hip XR left minimum 2 views [XR hip LT 2-3V w/pelvis] Exams 01/11/25 10:08 Completed Stat Hip XR right minimum 2 views [XR hip RT 2-3V w/pelvis] Exams 01/11/25 10:08 Completed Stat HIV Combo Stat Lab 01/11/25 09:41 Ordered Hepatitis C Ab Qual. W/ RFX Stat Lab 01/11/25 09:41 Ordered Medical Decision Narrative: Patient is an extremely poor historian but with bilateral hip pain complaints after what she claims to have had a fall from 3 weeks ago. Will get bilateral plain films of the hips and pelvis and reassess. I do not suspect she has injuries elsewhere. Also she has been ambulatory so it is very unlikely that she has significant fractures. Reassessments 1135 patient remained stable x-rays performed which I personally interpreted shows no evidence of any fractures or dislocation patient will be treated supportively and discharged back to [facility]. Critical Care Critical Care Time Critical Care Time: No
--- NOTE | 2025-01-11 11:36 | PC.NURSE ---
[facility] NOTIFIED OF TRANSPORT BACK TO [facility]
--- NOTE | 2025-01-11 11:38 | PC.NURSE ---
REPORT GIVEN TO SAMSON MENARD AT [facility]
[2025-01-11 12:01] VITALS: BP 105/65; PULSE 80; RESP 20; TEMP 36.6; O2SAT 98
== END 2025-01-11 12:05 | disposition home or self-care (01) ==
PROVIDERS: Emergency Provider Student in an Organized Health Care Education/Training Program
DX: M25.551 Pain in right hip (principal); M25.552 Pain in left hip; W19.XXXA Unspecified fall, initial encounter
CPT/HCPCS: 73502; 99283

== ENCOUNTER 2025-04-02 17:42 | Emergency (ER) | payer MEDICARE, MEDICAID, SELFPAY ==
--- NOTE | 2025-04-02 17:48 | CT_ITS ---
PROCEDURE INFORMATION: Exam: CT Pelvis Without Contrast, Skeleton Exam date and time: 04/02/2025 6:35 PM Age: 64 years old Clinical indication: Injury or trauma; Fall; Blunt trauma (contusions or hematomas); Does not apply; Pelvic region; Additional info: Pain TECHNIQUE: Imaging protocol: Computed tomography of the pelvis without contrast. Exam focused on the skeleton. Radiation optimization: All CT scans at this facility use at least one of these dose optimization techniques: automated exposure control; mA and/or kV adjustment per patient size (includes targeted exams where dose is matched to clinical indication); or iterative reconstruction. COMPARISON: CT ABDOMEN PELVIS WO CON 02/20/2019 11:24 AM FINDINGS: Bones/joints: Unremarkable. No acute fracture. No dislocation. Soft tissues: Unremarkable. IMPRESSION: No acute findings.
--- NOTE | 2025-04-02 17:48 | CT_ITS ---
PROCEDURE INFORMATION: Exam: CT Head Without Contrast Exam date and time: 04/02/2025 6:30 PM Age: 64 years old Clinical indication: Injury or trauma; Fall; Blunt trauma (contusions or hematomas) TECHNIQUE: Imaging protocol: Computed tomography of the head without contrast. Radiation optimization: All CT scans at this facility use at least one of these dose optimization techniques: automated exposure control; mA and/or kV adjustment per patient size (includes targeted exams where dose is matched to clinical indication); or iterative reconstruction. COMPARISON: CT HEAD/BRAIN WO CON 12/16/2022 10:10 PM FINDINGS: Brain: There is diffuse prominence of the cerebral sulci, cisterns, and ventricles consistent with atrophy. No intra or extra-axial fluid collections are noted. No mass or mass effect is seen. Periventricular white matter hypoattenuation is seen consistent with small vessel disease. Cerebral ventricles: No ventriculomegaly. Paranasal sinuses: Near opacification of the left maxillary sinus. Mastoid air cells: Visualized mastoid air cells are well aerated. Bones: Unremarkable. No acute fracture. Soft tissues: Unremarkable. IMPRESSION: 1. No acute intracranial process noted. 2. Left maxillary sinusitis.
--- NOTE | 2025-04-02 17:48 | CT_ITS ---
PROCEDURE INFORMATION: Exam: CT Cervical Spine Without Contrast Exam date and time: 04/02/2025 6:32 PM Age: 64 years old Clinical indication: Injury or trauma; Fall; Blunt trauma TECHNIQUE: Imaging protocol: Computed tomography of the cervical spine without contrast. Radiation optimization: All CT scans at this facility use at least one of these dose optimization techniques: automated exposure control; mA and/or kV adjustment per patient size (includes targeted exams where dose is matched to clinical indication); or iterative reconstruction. COMPARISON: CT CERVICAL SPINE WO CON 12/16/2022 10:11 PM FINDINGS: Bones: No acute fracture. Normal alignment. No significant disc bulge or herniation. No severe spinal canal stenosis. No significant neural foraminal narrowing. Lungs: Lung apices are normal. Soft tissues: Unremarkable. IMPRESSION: No acute cervical spine fracture.
[2025-04-02 17:49] VITALS: BP 112/72; PULSE 82; RESP 16; TEMP 36.6; O2SAT 99; BMI 28.3
--- NOTE | 2025-04-02 17:50 | HMH.EDGENADL ---
Discharge Plan Disposition Patient Disposition: Home, Self-Care Prescriptions Prescriptions: No Action buspirone 30 mg tablet 30 mg PO BID phenytoin sodium extended [Dilantin Extended] 100 mg capsule 100 mg PO TID escitalopram oxalate 20 mg tablet 20 mg PO DAILY haloperidol 10 mg tablet 10 mg PO TID potassium chloride [Klor-Con M20] 20 mEq tablet,ER particles/crystals 20 meq PO BID atorvastatin [Lipitor] 80 mg tablet 80 mg PO ONCE loperamide 2 mg capsule 2 mg PO Q4H triamterene-hydrochlorothiazid [Maxzide] 75-50 mg tablet 1 tab PO BID promethazine 25 mg tablet 25 mg PO Q6H PRN (Reason: Nausea) pantoprazole [Protonix] 20 mg tablet,delayed release (DR/EC) 40 mg PO QHS perphenazine 8 mg tablet 8 mg PO BID hydrocodone-acetaminophen [[place]] 5-325 mg tablet See Rx Instructions PO Q6H PRN (Reason: pain) Qty: 30 0RF Rx Instructions: 1 or 2 tablets PO every 6 hours PRN gabapentin 100 mg capsule 100 mg PO TID Qty: 90 5RF olanzapine 20 MG tablet 20 mg PO HS metformin 500 MG tablet 500 mg PO DAILY Rx Instructions: Take 1 tablet in the PM glipizide 5 MG tablet extended release 24hr 5 mg PO DAILY metformin 1,000 MG tablet 1,000 mg PO DAILY Rx Instructions: Take 1,000mg in the AM levofloxacin 500 MG tablet 500 mg PO DAILY Qty: 7 0RF cephalexin 500 MG capsule 500 mg PO TID Qty: 30 0RF sulfamethoxazole-trimethoprim 800-160 mg tablet 1 tab PO BID 7 Days Qty: 14 0RF cephalexin 500 mg capsule 500 mg PO BID 7 Days Qty: 14 0RF levetiracetam 500 MG tablet 500 mg PO BID oxybutynin chloride 5 MG tablet extended release 24hr 5 mg PO DAILY lamotrigine 50 MG tablet,disintegrating 50 mg PO BID loratadine 10 MG capsule 10 mg PO DAILY ibuprofen 600 mg tablet 600 mg PO TID PRN (Reason: Breakthru Mild Pain) Qty: 0 0RF Referrals Follow up/Referrals: Provider,Referral, MD [Primary Care Provider, Medical] - See instructions Activity Restrictions/Add. Instructions Additional Instructions/Restrictions: If you develop any new or worsening symptoms, or if you become concerned for your health for any reason, return to the emergency department for evaluation Clinical Impressions Clinical Impression: Fall, Hip pain Instructions Patient Instructions: Help for Hip Pain, How to Prevent Falls Print Language Print Language: Irish Discharge ED Provider: Sidney Aguilera Adult HPI <Kalyn Hilliard (ED), [employer] - Last Filed: 04/02/25 18:59> General Chief complaint: PAIN Stated complaint: Fall Time Seen by Provider: 04/02/25 17:45 History of Present Illness HPI narrative: 64-year-old female presents to the ED today for a fall prior to arrival. Patient is from [place]. Patient states that she fell onto her left side. She has a headache and left hip pain. I went to evaluate patient and patient was on the phone at the time. Related Data Home Medications ?Medication ?Instructions ?Recorded ?Confirmed atorvastatin 80 mg tablet (Lipitor) 80 mg PO ONCE Cholesterol 09/08/17 07/16/21 buspirone 30 mg tablet 30 mg PO BID bipolar 09/08/17 07/16/21 escitalopram oxalate 20 mg tablet 20 mg PO DAILY Depression 09/08/17 07/16/21 haloperidol 10 mg tablet 10 mg PO TID bipolar 09/08/17 07/16/21 loperamide 2 mg capsule 2 mg PO Q4H diarrhea 09/08/17 07/16/21 pantoprazole 20 mg tablet,delayed 40 mg PO QHS ppi 09/08/17 07/16/21 release (Protonix) perphenazine 8 mg tablet 8 mg PO BID unk 09/08/17 07/16/21 phenytoin sodium extended 100 mg 100 mg PO TID seizures 09/08/17 07/16/21 capsule (Dilantin Extended) potassium chloride 20 mEq 20 meq PO BID Supplement 09/08/17 07/16/21 tablet,extended release(part/cryst) (Klor-Con M) promethazine 25 mg tablet 25 mg PO Q6H PRN Nausea 09/08/17 07/16/21 triamterene 75 1 tab PO BID diuretic 09/08/17 07/16/21 mg-hydrochlorothiazide 50 mg tablet (Maxzide) lamotrigine 50 mg disintegrating 50 mg PO BID Supplement 02/08/19 07/16/21 tablet levetiracetam 500 mg tablet 500 mg PO BID Supplement 02/08/19 07/16/21 loratadine 10 mg capsule 10 mg PO DAILY Supplement 02/08/19 07/16/21 oxybutynin chloride 5 mg 5 mg PO DAILY Supplement 02/08/19 07/16/21 tablet,extended release 24 hr olanzapine 20 mg tablet 20 mg PO HS sleep/mood 02/20/19 07/16/21 glipizide 5 mg tablet, extended 5 mg PO DAILY Diabetes 05/15/21 07/16/21 release 24 hr metformin 1,000 mg tablet 1,000 mg PO DAILY Diabetes 05/15/21 07/16/21 metformin 500 mg tablet 500 mg PO DAILY Diabetes 05/15/21 07/16/21 Previous Rx's ?Medication ?Instructions ?Recorded ibuprofen 600 mg tablet 600 mg PO TID PRN Breakthru Mild 02/10/19 Pain ##0 hydrocodone 5 mg-acetaminophen 325 See Rx Instructions PO Q6H PRN 0330/20 mg tablet ([place]) pain #30 tabs cephalexin 500 mg capsule 500 mg PO TID #30 caps 05/15/21 levofloxacin 500 mg tablet 500 mg PO DAILY #7 tabs 05/15/21 gabapentin 100 mg capsule 100 mg PO TID #90 caps 03/08/23 cephalexin 500 mg capsule 500 mg PO BID 7 days #14 caps 07/28/24 sulfamethoxazole 800 1 tab PO BID 7 days #14 tabs 07/28/24 mg-trimethoprim 160 mg tablet Allergies Allergy/AdvReac Type Severity Reaction Status Date / Time aripiprazole (From ABILIFY) Allergy Mild Unknown Verified 07/16/21 11:55 allergy reaction Penicillins (PENICILLINS) Allergy Mild Unknown Verified 07/16/21 11:55 allergy reaction codeine (CODEINE) Allergy Unknown Unknown Verified 07/16/21 11:55 allergy reaction paroxetine (PAROXETINE) Allergy Unknown Unknown Verified 07/16/21 11:55 allergy reaction PPD black rubber mix (PPD Allergy Unknown Unknown Verified 07/16/21 11:55 BLACK RUBBER MIX) allergy reaction tuberculin, purified protein Allergy Unknown Unknown Verified 07/16/21 11:55 deriva (From TUBERSOL) allergy reaction venom-honey bee Allergy Unknown Unknown Verified 07/16/21 11:55 allergy reaction venom-wasp Allergy Unknown Unknown Verified 07/16/21 11:55 allergy reaction venom-wasp protein Allergy Unknown Verified 07/16/21 11:55 allergy reaction PFSH <Kalyn Hilliard (ED), [employer] - Last Filed: 04/02/25 18:59> [facility] Disclaimer: The information contained in this section may have been updated after the patient was seen, as this information can be updated by other users. Medical History HTN (hypertension) Tachycardia Social History Smoking Status: Current every day smoker tobacco type: cigarettes packs per day: 1 second hand exposure: Yes alcohol intake: never substance use type: denies use current occupational status: disabled Travel in the last 8 weeks?: None household members: other housing: other current occupational exposures/hazards: No caffeine: Yes Have you lived/traveled outside [place] in past 30 days?: No Contact w/someone who lives/traveled outside US past 30 days?: No Exposure to someone with infectious disease in past 14 days?: No Do you have a fever (greater than 100.4 F or 38 C)?: No Have you tested positive for COVID-19?: No Exposed to someone with COVID-19 in past 14 days?: No Do you have a sore throat?: No Do you have a cough?: No Do you have any weakness?: No Do you have any diarrhea?: No Are you experiencing any unusual bleeding?: No Do you have any muscle aches/pain?: No Do you have any abdominal pain?: No Are you experiencing loss of taste or smell?: No Other Medical History Have you received the Flu Vaccine for this season: Yes Have you received the Pneumonia Vaccine: No <Kalyn Hilliard (ED), [employer] - Last Filed: 04/02/25 18:59> ROS Obtained: Yes Systems reviewed as appropriate & no additional complaints except as documented Constitutional Constitutional: Reports as per HPI Physical Exam <Kalyn Hilliard (ED), [employer] - Last Filed: 04/02/25 18:59> General General appearance: alert and in no apparent distress Head Head exam: atraumatic and normocephalic Eye Eye exam: Present PERRL and EOMI ENT ENT exam: Present normal oropharynx and mucous membranes moist Neck Neck exam: Present full ROM and trachea midline Respiratory Respiratory exam: Present normal lung sounds bilaterally Cardiovascular Cardiovascular exam: Present regular rate, normal rhythm, normal heart sounds, +S1 and +S2 Abdominal Exam Abdominal exam: Present soft and normal bowel sounds Extremities Exam Extremities exam: Present full ROM and normal capillary refill Neurological Exam Neurological exam: Present alert and oriented X3 Skin Skin exam: Present warm and dry Medical Decision Making <Kalyn Hilliard (ED), [employer] - Last Filed: 04/02/25 18:59> Medical Records Screening: Per USPSTF and CDC recommendations, given the prevalence of disease in our region, it is our hospital?s policy to screen for HIV and viral Hepatitis for all patients aged 18 and over and those with ongoing risk factors. Otis Inquiry Pt receiving controlled substance: No Otis was queried for this patient: No Vital Signs: 04/02/25 17:49 Temperature 97.9 F Temperature Source Oral Pulse Rate [Left] 82 Respiratory Rate 16 Blood Pressure [Right Arm] 112/72 Blood Pressure Mean [Right Arm] 85 Blood Pressure Source [Right Arm] Automatic Cuff Blood Pressure Position [Right Arm] Sitting 02 Sat by Pulse Oximetry 99 Oxygen Delivery Method Room Air Orders (Tests/Meds): ED MEDICATIONS Generic Name Dose Route Start Last Admin Trade Name Freq PRN Reason Stop Dose Admin Sodium Chloride 1,000 mls @ 999 mls/hr 04/02/25 18:25 Sod Chlor 0.9% 1000ml Bag IV 04/02/25 19:25 .Q1H1M ONE Discontinued Medications Generic Name Dose Route Start Last Admin Trade Name Freq PRN Reason Stop Dose Admin Acetaminophen 1,000 mg 04/02/25 18:25 Acetaminophen 1,000mg/100ml Vial IV 04/02/25 18:26 ONCE ONE Dexamethasone Sodium Phosphate 8 mg 04/02/25 18:25 Dexamethasone 4mg/Ml 1ml Vial IV 04/02/25 18:26 ONCE ONE Diphenhydramine HCl 25 mg 04/02/25 18:25 Diphenhydramine 50mg/Ml Vial IV 04/02/25 18:26 ONCE ONE ORDERS Category Date Time Status CT bony pelvis Stat Cat Scan 04/02/25 17:[address] cervical spine wo con Stat Cat Scan 04/02/25 17:[address] head/brain wo con Stat Cat Scan 04/02/25 17:48 Completed Medical Decision Narrative: patient is a 64-year-old female presenting to the emergency department for evaluation of fall with left hip pain and a headache. Patient is hemodynamically stable and nontoxic-appearing upon arrival, afebrile. Differential diagnosis includes hip fracture, versus hip sprain or strain, concussion, among others. Workup will be conducted with hematologic labs, specific imaging, provocative tests. Initial inventions include crystalloid bolus, analgesics, antibiotics. Patient asking to smoke and eat. We are getting her something to eat at this time. Patient's cervical spine is nothing acute. Patient's CT scan of her head is nothing acute. We are awaiting her CT pelvis. I am giving report to Dr. Aguilera. <Sidney Aguilera MD - Last Filed: 04/02/25 19:22> Vital Signs: 04/02/25 17:49 Temperature 97.9 F Temperature Source Oral Pulse Rate [Left] 82 Respiratory Rate 16 Blood Pressure [Right Arm] 112/72 Blood Pressure Mean [Right Arm] 85 Blood Pressure Source [Right Arm] Automatic Cuff Blood Pressure Position [Right Arm] Sitting 02 Sat by Pulse Oximetry 99 Oxygen Delivery Method Room Air Orders (Tests/Meds): ED MEDICATIONS Generic Name Dose Route Start Last Admin Trade Name Freq PRN Reason Stop Dose Admin Sodium Chloride 1,000 mls @ 999 mls/hr 04/02/25 18:25 Sod Chlor 0.9% 1000ml Bag IV 04/02/25 19:25 .Q1H1M ONE Discontinued Medications Generic Name Dose Route Start Last Admin Trade Name Freq PRN Reason Stop Dose Admin Acetaminophen 1,000 mg 04/02/25 18:25 Acetaminophen 1,000mg/100ml Vial IV 04/02/25 18:26 ONCE ONE Dexamethasone Sodium Phosphate 8 mg 04/02/25 18:25 Dexamethasone 4mg/Ml 1ml Vial IV 04/02/25 18:26 ONCE ONE Diphenhydramine HCl 25 mg 04/02/25 18:25 Diphenhydramine 50mg/Ml Vial IV 04/02/25 18:26 ONCE ONE ORDERS Category Date Time Status CT bony pelvis Stat Cat Scan 04/02/25 17:[address] cervical spine wo con Stat Cat Scan 04/02/25 17:[address] head/brain wo con Stat Cat Scan 04/02/25 17:48 Completed Medical Decision Narrative: patient is a 64-year-old female presenting to the emergency department for evaluation of fall with left hip pain and a headache. Patient is hemodynamically stable and nontoxic-appearing upon arrival, afebrile. Differential diagnosis includes hip fracture, versus hip sprain or strain, concussion, among others. Workup will be conducted with hematologic labs, specific imaging, provocative tests. Initial inventions include crystalloid bolus, analgesics, antibiotics. Patient asking to smoke and eat. We are getting her something to eat at this time. Patient's cervical spine is nothing acute. Patient's CT scan of her head is nothing acute. We are awaiting her CT pelvis. I am giving report to Dr. Aguilera. Sidney Aguilera MD: I was consulted by the KRISS, and we discussed the complexity of the problems being addressed. I approve the treatment and management plan for this patient's care in the emergency department, thus performing a substantive portion of the medical decision making. At the time that I assumed care of the patient, patient CT head and CT C-spine had resulted and were unremarkable for any acute intracranial hemorrhage, mass or midline shift. No cervical spine fracture or malalignment. Patient CT pelvis resulted there is no acute fractures. She has been ambulatory here in the emergency department. I feel that given her imaging is negative that she is appropriate to discharge back to [place]. Return precautions were given. All questions were answered. She was then discharged from the emergency department in stable condition Critical Care <Kalyn Hilliard (MELVIN), [employer] - Last Filed: 04/02/25 18:59> Critical Care Time Critical Care Time: No
--- NOTE | 2025-04-02 19:37 | PC.NURSE ---
attempted to call [place] [phone] for pt transfer.
--- NOTE | 2025-04-02 19:42 | PC.NURSE ---
spoke with [facility]. States they will try to find pt a ride.
--- NOTE | 2025-04-02 19:55 | PC.NURSE ---
voice mail left for clinic pharmacy and email sent to care management for eliquis pre-auth
--- NOTE | 2025-04-02 20:29 | PC.NURSE ---
attempted to call [facility] to follow up about ride for pt. no answer at this time
--- NOTE | 2025-04-02 21:31 | PC.NURSE ---
pt is [facility] pt, not [facility]. Called [facility] to let them know pt is DC and needs a ride. [facility] employee reports they do not, and never have transported pts.
[2025-04-02 22:17] VITALS: BP 155/62; PULSE 70; RESP 16; TEMP 37.2; O2SAT 100
--- NOTE | 2025-04-02 22:21 | PC.NURSE ---
Pt DC via [facility]
== END 2025-04-02 22:18 | disposition home or self-care (01) ==
PROVIDERS: Emergency Provider Student in an Organized Health Care Education/Training Program
DX: M25.552 Pain in left hip (principal); R51.9 Headache, unspecified; W19.XXXA Unspecified fall, initial encounter
CPT/HCPCS: 70450; 72125; 72192; 99282; 99285